=== PATIENT | male | born 1950 | race Caucasian/White ===

== ENCOUNTER → 2018-12-24 06:55 | Outpatient (CLI) | payer MEDICARE, SELFPAY ==
--- NOTE | 2018-12-24 | CA_ITS ---
APPROVED REPORT Exam: Pharmacologic Technologist: Dara Lauren Ht: 6 ft 0 in Wt: 240 lbs BSA: 2.30 m2 HR: 54 bpm BP: 149/78 mmHg Indications: Shortness of Breath, Dizziness Medical History Medications: Levothyroxine,,,,, Metoprolol,,,,, Atorvastatin,,,,, Albuterol,,,,, DulOXETINE,,,,, Prednisone,,,,, Vitamin D,,,,, ElIQUIS,,,,, AZITHROMYCIN,,,,, Stress Test Details Test: LEXISCAN HR Resting HR: 62 bpm Max Heart Rate (APMHR): 150 bpm Max HR Achieved: 85 bpm Target HR (85% APMHR): 127 bpm % of APMHR: 56 Recovery HR: 58 bpm BP Resting BP: 149.0/78.0 mmHg Max BP: 173.0/76.0 mmHg Recovery BP: 173.0/76.0 mmHg ECG Clinical Reason for Termination: Completed Protocol Exercise duration: 04:00 min Highest Stage Achieved: Stress ECG Conclusion Resting ECG: Sinus bradycardia, Q wave inferiorly Symptoms: None Arrhythmias/Ectopy: Occasional PVC ST-T Changes: less than 1.[address] segment depression Conclusion: Non-Diagnostic. See nuclear report for further information. Electronically signed by : Ye Hill, 12/26/2018 15:06:57
--- NOTE | 2018-12-24 06:57 | CA_ITS ---
[facility] RADIOLOGICAL CONSULTATION Patient Name : DOYLE LEZAMA X-RAY # : [id number] Physician: RAYMOND ONEILL AGE: 68Y : 1950 00:00:00 ( M ) Exam : CA ECHO DOPPLER COMPLETE ACC # : [id number] Study Date : 12/24/2018 10:18:14 Patient Class : O FINAL REPORT CLINICAL DATA: FINDINGS: TRANSCRIBED REPORT EXAM: Comprehensive 2D, Doppler, and color-flow Echocardiogram Library Director: Roopa Grover CRT Ht: 6 ft 0 in Wt: 234lbs BSA: 2.28 BP: 135/90 mmHg Indications: sob, dizziness, htn, dm, smoker, edema, hyperlipidemia 2D Dimensions LVOT 2.00 cm (M/F) 1.5-2.5 M-Mode Dimensions RVDd 1.60 cm (0.9-2.6) LA Diam 3.60 cm (1.9-4.0) LVDd 5.40 cm (3.5-5.7) Ao Diam 4.10 cm (2.0-3.7) LVDs 3.40 cm (3.5-5.7) AV Cusp 2.50 cm (1.5-2.6) IVSd 1.90 cm (0.6-1.1) PWd 0.80 cm (0.6-1.1) EF (Teich) 66.40% FS 37.00% EDV (Teich) 141.00 mL ESV (Teich) 47.40 mL LV Diastology E/A Ratio 0.50 LAT E' 3.90 (<10 cm/sec) E/LAT E' Ratio 12.40 (>14) Aortic Valve AoV Peak Marciano. 114.00 (50-130 cm/s) AO Peak GR. 5.00 mmHg Mitral Valve MV E Max Marciano. 48.40 (40-130 cm/s) MV A Velocity 100.00 (40-130 cm/s) E/A Ratio 0.50 Pulmonary Valve IN End VMAX 103.00 cm/s PA Accel Time 144.00 (>120 msec) Tricuspid Valve TR P. Velocity 238.00 cm/s RAP Estimate 10.00 mmHg RVSP 33.00 mmHg Electronically signed by : IMPRESSION: Dictated by at Transcribed by at
--- NOTE | 2018-12-24 06:57 | CA_ITS ---
APPROVED REPORT Hazardous Waste Material Technician: CT Laterality: Bilateral Study Quality: Fair Indications: cardiac workup, dizziness, cva, dm Risk Factors Smoking Doppler Spectral Velocity Analysis ECA (R) 81.50/ cm/s ECA (L) 75.00/ cm/s dICA (R) 67.40/17.60 cm/s dICA (L) 80.10/22.00 cm/s Willy (R) 49.80/16.40 cm/s Willy (L) 60.30/18.80 cm/s pICA (R) 40.50/16.50 cm/s pICA (L) 35.40/10.40 cm/s dCCA (R) 46.80/9.08 cm/s dCCA (L) 37.70/9.11 cm/s pCCA (R) 60.50/14.10 cm/s pCCA (L) 49.00/12.60 cm/s Vert (R) 38.40/ cm/s Vert (L) 33.60/ cm/s ICA/CCA 1.44 ICA/CCA 2.12 Findings Duplex evaluation demonstrates stenosis of the right proximal internal carotid artery <20% with PSV <140 cm/sec, EDV <100 cm/sec, and IC/CC Ratio <4.0. Duplex evaluation demonstrates stenosis of the left proximal internal carotid artery in the range of 20-49% with PSV <140 cm/sec, EDV <100 cm/sec, and IC/CC Ratio <4.0, lower end of scale. Duplex evaluation demonstrates antegrade flow of the bilateral Vertebral Arteries. Conclusion Duplex evaluation demonstrates stenosis of the right proximal internal carotid artery <20%. Duplex evaluation demonstrates stenosis of the left proximal internal carotid artery in the range of 20-49% , lower end of scale. Duplex evaluation demonstrates antegrade flow of the bilateral Vertebral Arteries Electronically signed by : Jordi Fairchild MD 12/28/2018 07:44:56
--- NOTE | 2018-12-24 07:01 | NM_ITS ---
APPROVED REPORT Exam: Nuclear Stress Test Indication: Chest pain, SOB, DM, High Cholesterol, Tobacco use, Family history, CAD, Hx of [place] Patient Location: Outpatient Stress Tech: Daar Leonidas [place] Tech:Nalini Byers, ARRT, RT (R)(N) Ht: 6 ft 0 in Wt: 240 lbs HR: 54 bpm BP: 149/78 mmHg BSA: 2.30 m2 History: Chest pain, SOB, DM, High Cholesterol, Tobacco use, Family history, CAD, Hx of [place] Procedure: Patient received a 0.4 mg of intravenous Lexiscan, resting heart rate 54 bpm, resting blood pressure 149/78 mmHg, with Lexiscan maximum heart rate achived was 71 bpm which is % of the maximum predicted heart rate and blood pressure was 172/75 mmHg. With Lexiscan, patient denied any complaint of chest pain. Cardiac Stress and Resting SPECT Images: Cardiac Stress and Resting SPECT images were obtained using technetium 99m Myoview 31.6 mCi stress and 9.96 mCi at rest. Slightly low EF of 50% There is a large fixed defect in the infero-lat wall consistent with an infarct There is thinnning of the apex on stress images which slightly improves on rest suggesting mild ischemic change Conclusion: Slightly low EF of 50% There is a large fixed defect in the infero-lat wall consistent with an infarct There is thinnning of the apex on stress images which slightly improves on rest suggesting mild ischemic change Electronically signed by : Jordi Fairchild MD 12/26/2018 17:03:27
--- NOTE | 2018-12-24 07:18 | HMH.ITSHM ---
Current Home Medications as stated by this patient Anthony Hawk JR or patient care representative. []VITAMIN D ATORVASTATIN ELIQUIS DULOXETINE LEVOTHYROXINE METOPROLOL AZITHROMYCIN PREDNISONE ALBUTEROL
== END ==
PROVIDERS: PCP Nurse Practitioner Family; Visit Provider Internal Medicine Cardiovascular Disease
DX: R06.02 Shortness of breath (principal); R42 Dizziness and giddiness
CPT/HCPCS: 78452; 93017; 93306; 93880; A9502; J2785

== ENCOUNTER → 2019-01-07 17:12 | Outpatient (CLI) | payer MEDICARE, SELFPAY ==
[2019-01-07 18:29] LABS: Alanine Aminotransferase 24 U/L (12-78); Albumin Level 3.1 gm/dL (3.4-5.0); Alkaline Phosphatase 104 U/L (46-116); Anion Gap 15.7 mEq/L (5-15); Aspartate Amino Transferase 12 U/L (15-37); Bilirubin,Total 0.8 mg/dL (0.2-1.0); Blood Urea Nitrogen 15 mg/dL (7-18); Carbon Dioxide 27 mmol/L (21.0-32.0); Chloride 98 mmol/L (98-107); Creatinine,Serum 1.33 mg/dL (0.70-1.30); Estimated Glomerular Filt Rate 53 ml/min (>60); GFR (African American) 64 ML/MIN (>60); Globulin 3.2 gm/dl (1.3-3.2); Glucose 281 mg/dL (74-106); Potassium 3.7 mmoL/L (3.5-5.1); Sodium 137 mmol/L (136-145); Total Protein,Serum 6.3 gm/dL (6.4-8.2)
== END ==
PROVIDERS: Visit Provider Nurse Practitioner Family
DX: R60.0 Localized edema (principal)
CPT/HCPCS: 80053

== ENCOUNTER → 2019-01-10 13:43 | Outpatient (CLI) | payer MEDICARE, SELFPAY ==
[2019-01-11 10:15] LABS: Creatinine, Urine 372.2 mg/dL (Not Estab.)
== END ==
PROVIDERS: Visit Provider Nurse Practitioner Family
DX: E11.9 Type 2 diabetes mellitus without complications (principal); Z79.4 Long term (current) use of insulin
CPT/HCPCS: 82043; 82570

== ENCOUNTER → 2019-01-11 16:03 | Outpatient (CLI) | payer MEDICARE, SELFPAY ==
[2019-01-11 16:52] LABS: Basophils # 0.1 K/mm3 (0-0.2); Basophils % 0.5 % (0.1-2.0); Eosinophils # 0.1 K/mm3 (0.0-0.4); Eosinophils % 1.1 % (0.1-12.0); Hematocrit 46.6 % (42.0-52.0); Hemoglobin 15.7 g/dL (14.1-18.0); Lymphocytes % 38.5 % (10-50); Mean Corpuscular HGB Conc 33.8 g/dL (31.8-35.4); Mean Corpuscular Hemoglobin 30.3 pg (27.0-31.2); Mean Corpuscular Volume 89.6 fl (80-94); Mean Platelet Volume 11.6 fl (7.4-10.4); Monocytes # 0.4 K/mm3 (0.1-1.0); Monocytes % 3.7 % (1.7-9.3); Neutrophils # 5.9 K/mm3 (1.8-7.8); Neutrophils % 56.2 % (37.0-80.0); Platelet Count 134 K/mm3 (142-424); Red Cell Distribution Width 14.4 % (11.5-17.5); White Blood Count 10.5 K/mm3 (4.8-10.8)
[2019-01-11 18:49] LABS: Cholesterol 72 mg/dL (140-200)
[2019-01-11 21:03] LABS: Alanine Aminotransferase 21 U/L (12-78); Albumin Level 3.4 gm/dL (3.4-5.0); Albumin/Globulin Ratio 1.1 (1.1-1.8); Alkaline Phosphatase 97 U/L (46-116); Anion Gap 18.8 mEq/L (5-15); Aspartate Amino Transferase 19 U/L (15-37); Bilirubin,Total 0.7 mg/dL (0.2-1.0); Blood Urea Nitrogen 24 mg/dL (7-18); Calcium 9.2 mg/dL (8.5-10.1); Carbon Dioxide 26 mmol/L (21.0-32.0); Chloride 101 mmol/L (98-107); Creatinine,Serum 1.62 mg/dL (0.70-1.30); Estimated Glomerular Filt Rate 42 ml/min (>60); GFR (African American) 51 ML/MIN (>60); Globulin 3.2 gm/dl (1.3-3.2); Potassium 3.8 mmoL/L (3.5-5.1); Sodium 142 mmol/L (136-145); Thyroid Stimulating Hormone 61.31 uIU/ml (0.358-3.740); Total Protein,Serum 6.6 gm/dL (6.4-8.2); Triglycerides 118 mg/dL (30-200); VLDL Cholesterol 24 mg/dL (0-40)
[2019-01-11 21:05] LABS: Glucose 150 mg/dL (74-106)
[2019-01-12 13:46] LABS: Chol/HDL Ratio 1.5 (1-3.5); HDL Cholesterol 48 mg/dL (27-67); LDL Cholesterol 0 mg/dL (0-130); T4 (Thyroxine) 5.3 ug/dl (4.7-13.3)
[2019-01-14 14:34] LABS: Vitamin D 25 Hydroxy 33.2 ng/mL (30.0-100.0)
== END ==
PROVIDERS: Nurse Practitioner Family; Visit Provider Nurse Practitioner Family
DX: E11.9 Type 2 diabetes mellitus without complications (principal); F17.200 Nicotine dependence, unspecified, uncomplicated; Z79.4 Long term (current) use of insulin
CPT/HCPCS: 36415; 80053; 80061; 82652; 83036; 84436; 84443; 85025

== ENCOUNTER → 2019-02-21 16:36 | Outpatient (CLI) | payer MEDICARE, MEDICAID, SELFPAY ==
--- NOTE | 2019-02-21 16:43 | XR_ITS ---
PROCEDURE: XR FOOT WT BEARING RT 3V CLINICAL INDICATION: pain Posttraumatic pain COMPARISON: No exams were available for comparison FINDINGS: There is flexion deformity of the 1st through 5th toes with osteoarthritic change of the 1st metatarsophalangeal joint. Mild osteoarthritic change noted at the tarsometatarsal junctions. Bony hypertrophy is noted at the medial cuneiform with mild osteoarthritis of the tarsals. There appears to be an old fracture of the distal fibula. Calcification is present at the plantar fascia posteriorly. This would suggest chronic plantar fasciitis. No acute fracture or dislocation. IMPRESSION: Degenerative changes, no acute fracture Dictated by: Jordi Fairchild MD 02/22/2019 05:06 Electronically signed by Jordi Fairchild MD in [place] 02/22/2019 05:06
--- NOTE | 2019-02-21 16:43 | XR_ITS ---
PROCEDURE: XR FOOT WT BEARING LT 3V CLINICAL INDICATION: pain Left foot pain following injury COMPARISON: No exams were available for comparison FINDINGS: There are mild osteoarthritic changes of the 1st metatarsophalangeal junction and 1st interphalangeal joint with flexion deformity of the toes. Moderate calcification is present at the plantar fascia suggesting chronic fasciitis. Calcification also noted involving the distal aspect of the Achilles tendon. Degenerative changes are present in the tarsal bones. No obvious acute fracture or dislocation. Other findings:None. IMPRESSION: Degenerative changes, no acute finding Dictated by: Jordi Fairchild MD 02/22/2019 05:08 Electronically signed by Jordi Fairchild MD in [place] 02/22/2019 05:08
== END ==
PROVIDERS: PCP Nurse Practitioner Family; Visit Provider Podiatrist
DX: E11.8 Type 2 diabetes mellitus with unspecified complications (principal); Z79.4 Long term (current) use of insulin; M79.672 Pain in left foot; M79.671 Pain in right foot
CPT/HCPCS: 73630

== ENCOUNTER → 2019-04-11 16:52 | Outpatient (POV) | payer SELFPAY | PROVIDERS: Visit Provider Internal Medicine Nephrology | DX: Z00.00 Encounter for general adult medical examination without abnormal findings (principal) ==

== ENCOUNTER → 2019-09-10 13:31 | Outpatient (CLI) | payer MEDICARE, SELFPAY ==
[2019-09-10 13:41] LABS: Basophils # 0.1 K/mm3 (0-0.2); Basophils % 0.7 % (0.1-2.0); Eosinophils # 0.2 K/mm3 (0.0-0.4); Eosinophils % 1.7 % (0.1-12.0); Hematocrit 45.4 % (42.0-52.0); Hemoglobin 15.4 g/dL (14.1-18.0); Lymphocytes # 2.9 K/mm3 (0.7-4.5); Lymphocytes % 28.6 % (10-50); Mean Corpuscular HGB Conc 33.9 g/dL (31.8-35.4); Mean Corpuscular Hemoglobin 29.6 pg (27.0-31.2); Mean Corpuscular Volume 87.3 fl (80-94); Mean Platelet Volume 10.4 fl (7.4-10.4); Monocytes # 0.5 K/mm3 (0.1-1.0); Monocytes % 4.5 % (1.7-9.3); Neutrophils # 6.6 K/mm3 (1.8-7.8); Neutrophils % 64.4 % (37.0-80.0); Platelet Count 168 K/mm3 (142-424); Red Cell Distribution Width 14.2 % (11.5-17.5); White Blood Count 10.2 K/mm3 (4.8-10.8)
[2019-09-10 13:42] LABS: Chloride 100 mmol/L (98-107); Potassium 3.6 mmoL/L (3.5-5.1); Sodium 136 mmol/L (136-145)
[2019-09-10 13:44] LABS: Alanine Aminotransferase 8 U/L (12-78); Aspartate Amino Transferase 16 U/L (17-59); Blood Urea Nitrogen 24 mg/dl (9-20); Estimated Glomerular Filt Rate 60 ml/min (>60); GFR (African American) 72 ML/MIN (>60)
[2019-09-10 13:45] LABS: Albumin Level 4.1 g/dl (3.5-5.0); Albumin/Globulin Ratio 1.3 (1.1-1.8); Alkaline Phosphatase 96 U/L (38-126); Anion Gap 9.6 mEq/L (5-15); Bilirubin,Total 0.8 mg/dl (0.2-1.3); Calcium 9.5 mg/dl (8.4-10.2); Carbon Dioxide 30 mmol/L (22.0-30.0); Chol/HDL Ratio 3.1 (1-3.5); Cholesterol 122 mg/dl (140-200); Globulin 3.2 g/dL (1.3-3.2); Glucose 137 mg/dl (74-100); HDL Cholesterol 40 mg/dl (40-60); Total Protein,Serum 7.3 g/dl (6.3-8.2); Triglycerides 81 mg/dl (30-150); VLDL Cholesterol 16 mg/dL (0-40)
[2019-09-10 13:58] LABS: Direct LDL Cholesterol 65.91 mg/dL (100-129)
[2019-09-10 14:02] LABS: T4 (Thyroxine) 9.2 ug/dl (5.53-11.0)
[2019-09-10 14:16] LABS: Thyroid Stimulating Hormone 4.78 uIU/mL (0.465-4.68)
[2019-09-10 15:30] LABS: Hemoglobin A1C 6.5 % (4.0-6.0)
[2019-09-10 19:15] LABS: Creatinine,Urine Random 142 mg/dL (Not Estab.)
[2019-09-10 20:38] LABS: Microalbumin/Creatinine Ratio 1732.7
== END ==
PROVIDERS: Visit Provider Nurse Practitioner Family
DX: E11.8 Type 2 diabetes mellitus with unspecified complications (principal); E03.9 Hypothyroidism, unspecified; Z79.4 Long term (current) use of insulin
CPT/HCPCS: 80053; 80061; 82043; 82570; 83036; 84436; 84443; 85025

== ENCOUNTER → 2020-03-31 19:27 | Outpatient (CLI) | payer MEDICARE, SELFPAY ==
[2020-03-31 20:00] LABS: Alanine Aminotransferase 18 U/L (12-78); Albumin Level 4.6 g/dl (3.5-5.0); Albumin/Globulin Ratio 1.5 (1.1-1.8); Alkaline Phosphatase 153 U/L (38-126); Aspartate Amino Transferase 20 U/L (17-59); Basophils # 0.1 K/mm3 (0-0.2); Basophils % 0.7 % (0.1-2.0); Bilirubin,Total 0.6 mg/dl (0.2-1.3); Blood Urea Nitrogen 17 mg/dl (9-20); Carbon Dioxide 33 mmol/L (22.0-30.0); Chloride 94 mmol/L (98-107); Chol/HDL Ratio 2.7 (1-3.5); Cholesterol 148 mg/dl (140-200); Eosinophils # 0.1 K/mm3 (0.0-0.4); Eosinophils % 0.9 % (0.1-12.0); Estimated Glomerular Filt Rate 66 ml/min (>60); GFR (African American) 80 ML/MIN (>60); Glucose 352 mg/dl (74-100); HDL Cholesterol 54 mg/dl (40-60); Hematocrit 46.7 % (42.0-52.0); Hemoglobin 14.6 g/dL (14.1-18.0); Lymphocytes # 2.6 K/mm3 (0.7-4.5); Lymphocytes % 27.1 % (10-50); Mean Corpuscular HGB Conc 31.2 g/dL (31.8-35.4); Mean Corpuscular Hemoglobin 28.3 pg (27.0-31.2); Mean Corpuscular Volume 90.6 fl (80-94); Mean Platelet Volume 13.1 fl (7.4-10.4); Monocytes # 0.6 K/mm3 (0.1-1.0); Monocytes % 5.8 % (1.7-9.3); Neutrophils # 6.4 K/mm3 (1.8-7.8); Neutrophils % 65.4 % (37.0-80.0); Platelet Count 135 K/mm3 (142-424); Red Blood Count 5.16 M/mm3 (4.60-6.20); Red Cell Distribution Width 14.5 % (11.5-17.5); Sodium 135 mmol/L (136-145); Total Protein,Serum 7.6 g/dl (6.3-8.2); Triglycerides 116 mg/dl (30-150); VLDL Cholesterol 23 mg/dL (0-40); White Blood Count 9.7 K/mm3 (4.8-10.8)
[2020-03-31 20:12] LABS: Direct LDL Cholesterol 67.64 mg/dL (100-129)
[2020-03-31 20:19] LABS: 25-OH Vitamin D, Total 22.8 ng/mL (30-100); Hemoglobin A1C 7.7 % (4.0-6.0)
[2020-03-31 20:20] LABS: Free T4 (Free Thyroxine) 1.44 ng/dl (0.78-2.19)
[2020-03-31 20:45] LABS: Erythrocyte Sedimentation Rate 8 mm/hr (0-20)
== END ==
PROVIDERS: Visit Provider Emergency Medicine
DX: E11.9 Type 2 diabetes mellitus without complications (principal); Z79.4 Long term (current) use of insulin; E55.9 Vitamin D deficiency, unspecified
CPT/HCPCS: 80053; 80061; 82306; 83036; 84439; 84443; 85025; 85651

== ENCOUNTER 2020-04-10 19:25 | Inpatient (IN) | payer MEDICARE, MEDICAID, SELFPAY ==
--- NOTE | 2020-04-10 19:17 | ECG_ITS ---
APPROVED REPORT Exam: Resting ECG HR:60 bpm ECG Measurements Heart Rate 60 AXES SC 188 P 49 QRSd 82 QRS 60 QT 462 T 12 QTc 462 Conclusion Normal sinus rhythm Possible Inferior infarct, age undetermined T wave abnormality, consider lateral ischemia Abnormal ECG Electronically signed by : Jonathon Perales, 04/11/2020 08:49:51
--- NOTE | 2020-04-10 19:32 | XR_ITS ---
PROCEDURE: XR HIP LT 2-3V W/PELVIS CLINICAL INDICATION: pain Injury with pain COMPARISON: CR XR PELVIS 1-2V from 04/10/[address] HIP LT WO CON from 04/10/2020 FINDINGS: There is a nondisplaced fracture involving the intertrochanteric portion of the left hip. The fracture extends from the base of the lesser trochanter through the intertrochanteric region and appears to exit superiorly at the base of the femoral neck. Consider CT for more thorough evaluation. There has been a right hip hemiarthroplasty placed which is in good alignment. DISH is present in the lower lumbar spine. IMPRESSION: 1. Nondisplaced left intertrochanteric fracture with extension into the femoral neck. 2. Status post right hip hemiarthroplasty Dictated by: Jordi Fairchild MD 04/11/2020 07:55 Jordi Fairchild MD in [place] 04/11/2020 07:55
--- NOTE | 2020-04-10 19:32 | XR_ITS ---
PROCEDURE: XR CHEST PORTABLE CLINICAL HISTORY: cough COMPARISON: CR CXR CHEST(2 VIEWS-NOT PORTABLE) from 09/02/2013 CR CXR1 CHEST-PORTABLE from 03/07/2014 CR CXR2 CHEST-AP VIEW ONLY from 01/26/2015 FINDINGS: The cardiomediastinal silhouette and pulmonary vascularity are within normal limits. No lobar consolidation or collapse evident. There is a nodular opacity in the left perihilar region which may be due to vessel on end and could be confirmed follow-up. Lucency noted in the left upper lobe laterally probably related to skin fold artifact as lung markings are present distal to this region. Upright PA and lateral chest may confirm Osteoarthritic changes of the shoulders. Prior lower cervical disc fusion IMPRESSION: No acute finding. Please see above for detail Dictated by: Jordi Fairchild MD 04/11/2020 08:07 Jordi Fairchild MD in [place] 04/11/2020 08:07
[2020-04-10 19:34] VITALS: BP 171/84; PULSE 56; RESP 16; TEMP 37.1; O2SAT 98; BMI 24.4
[2020-04-10 19:38] LABS: Basophils # 0.1 K/mm3 (0-0.2); Basophils % 0.7 % (0.1-2.0); Eosinophils # 0.1 K/mm3 (0.0-0.4); Eosinophils % 1.2 % (0.1-12.0); Hematocrit 45.1 % (42.0-52.0); Hemoglobin 14.6 g/dL (14.1-18.0); Lymphocytes % 31.8 % (10-50); Mean Corpuscular HGB Conc 32.4 g/dL (31.8-35.4); Mean Corpuscular Hemoglobin 28.7 pg (27.0-31.2); Mean Corpuscular Volume 88.6 fl (80-94); Mean Platelet Volume 11.8 fl (7.4-10.4); Monocytes # 0.4 K/mm3 (0.1-1.0); Monocytes % 4.3 % (1.7-9.3); Neutrophils # 5.9 K/mm3 (1.8-7.8); Platelet Count 129 K/mm3 (142-424); Red Blood Count 5.09 M/mm3 (4.60-6.20); Red Cell Distribution Width 15.1 % (11.5-17.5); White Blood Count 9.6 K/mm3 (4.8-10.8)
--- NOTE | 2020-04-10 19:48 | XR_ITS ---
PROCEDURE: XR ELBOW RT MIN 3V CLINICAL INDICATION: fall Posttraumatic pain COMPARISON: No exams were available for comparison FINDINGS: No fracture or dislocation. No lytic or blastic change. There is normal mineralization. Artifact is present from the overlying intravenous catheter. There are osteoarthritic changes with spurring noted there is an extra calcific density overlying the olecranon fossa on the AP view consistent with a loose body measuring 6 mm. An additional extra ossicle overlies the medial aspect of the olecranon process on the AP view measuring 7 mm and could be due to an additional loose body or an old fracture. Other findings:None. IMPRESSION: 1. No acute fracture. 2. Osteoarthritis with loose bodies Dictated by: Jordi Fairchild MD 04/11/2020 07:47 Jordi Fairchild MD in [place] 04/11/2020 07:47
--- NOTE | 2020-04-10 19:48 | CT_ITS ---
PROCEDURE: CT CERVICAL SPINE WO CON CLINICAL INDICATION: fall Neck injury with pain, contusion/abrasion or hematoma, cervical sprain/strain the COMPARISON: No exams were available for comparison TECHNIQUE: Axial images obtained with sagittal and coronal reformats. All CT scans at the facility use one or more dose reduction, viz: automated exposure control, ma/kV adjustment per patient size (including targeted exams where dose is matched to indication, i.e. head), or iterative reconstruction technique. Axial spiral CT scanning performed of the cervical spine beginning at the base of the skull and continuing to the upper T-spine. 3-D multiplanar reconstruction with 3-D manipulation of volumetric data set in image rendering was completed by the radiologist and/or technologist with the supervision of the radiologist on independent workstation. FINDINGS: Prior anterior cervical discectomy with fusion from C3-C5. No acute fracture or dislocation. C2-C3: Degenerative disc disease. Small central disc protrusion or disc osteophyte complex C3-C4: Degenerate disc disease with foraminal narrowing. C4-C5: Degenerative disc disease C5-C6: Degenerative disc disease with endplate hypertrophic change eccentric to the right with bilateral foraminal narrowing left greater than right C6-C7: Degenerate disc disease with endplate hypertrophic change and bilateral foraminal narrowing. C7-T1: Degenerate disc disease with bilateral foraminal narrowing. Lung apices are clear. Mucous is present within the distal trachea layering posteriorly. There is diffuse vascular calcification. IMPRESSION: 1. No acute fracture. 2. Multilevel cervical spondylosis. Please see above for detailed description at each level. Dictated by: Jordi Fairchild MD 04/11/2020 09:44 Jordi Fairchild MD in [place] 04/11/2020 09:44
--- NOTE | 2020-04-10 19:48 | CT_ITS ---
PROCEDURE: CT HEAD/BRAIN WO CON CLINICAL INDICATION: fall Head injury with headache/pain, contusion, abrasion or hematoma COMPARISON: CT HDWO CT HEAD W/O CONTRAST from 01/02/2014 TECHNIQUE: Axial images obtained. All CT scans at the facility use one or more dose reduction, viz: automated exposure control, ma/kV adjustment per patient size (including targeted exams where dose is matched to indication, i.e. head), or iterative reconstruction technique. FINDINGS: No midline shift, mass effect, intracranial hemorrhage, hydrocephalus, or extra-axial fluid collection is evident. There is generalized atrophy with hypoattenuation of the periventricular white matter consistent with microangiopathic changes.. The calvarium has an unremarkable appearance. There is soft tissue swelling in the right frontal parietal and occipital region consistent with contusion no sinus air-fluid level. IMPRESSION: 1. No acute intracranial findings. 2. Mild right frontal parietal occipital scalp contusion Dictated by: Jordi Fairchild MD 04/11/2020 09:25 Jordi Fairchild MD in [place] 04/11/2020 09:25
--- NOTE | 2020-04-10 19:48 | XR_ITS ---
PROCEDURE: XR KNEE RT 3V CLINICAL INDICATION: fall Posttraumatic pain COMPARISON: CR KNEE3L KNEE-3 VIEWS-LT from 04/22/2013 CR [id number] KNEE-4 OR 5 VIEWS-LT from 07/10/2013 CR [id number] KNEE-LIMITED 2 VIEWS-RT from 04/22/2015 CR XR KNEE LT 3V from 04/10/2020 FINDINGS: There are moderate osteoarthritic changes. No acute fracture or dislocation is evident. There is a loose body in the popliteal fossa. IMPRESSION: No acute fracture. Dictated by: Jordi Fairchild MD 04/11/2020 07:50 Jordi Fairchild MD in [place] 04/11/2020 07:50
--- NOTE | 2020-04-10 19:48 | XR_ITS ---
PROCEDURE: XR KNEE LT 3V CLINICAL INDICATION: fall Posttraumatic pain COMPARISON: CR KNEE3L KNEE-3 VIEWS-LT from 04/22/2013 CR [id number] KNEE-4 OR 5 VIEWS-LT from 07/10/2013 CR [id number] KNEE-LIMITED 2 VIEWS-RT from 04/22/2015 FINDINGS: No fracture or dislocation. No lytic or blastic change. There is normal mineralization. Severe osteoarthritic changes are present with prominent bony spurring. Prominent enthesophyte/osteophyte noted in the suprapatellar region. Diffuse vascular calcification. . IMPRESSION: Osteoarthritis, no acute fracture. Dictated by: Jordi Fairchild MD 04/11/2020 07:51 Jordi Fairchild MD in [place] 04/11/2020 07:51
--- NOTE | 2020-04-10 19:48 | XR_ITS ---
PROCEDURE: XR SHOULDER LT MIN 2V CLINICAL INDICATION: fall Posttraumatic pain COMPARISON: No exams were available for comparison FINDINGS: No fracture or dislocation. No lytic or blastic change. There is normal mineralization. Osteoarthritic changes are present at the acromioclavicular and glenohumeral joint. Subchondral cystic changes are present in the humeral head. There is a high-riding humeral head with severe subacromial stenosis consistent with rotator cuff tear. Other findings:None. IMPRESSION: No acute fracture. Osteoarthritis with high-riding humeral head and severe subacromial stenosis suggesting rotator cuff tear Dictated by: Jordi Fairchild MD 04/11/2020 08:03 Jordi Fairchild MD in [place] 04/11/2020 08:03
[2020-04-10 19:53] LABS: Activated Partial Thrombo Time 26.8 seconds (23.6-34.0); INR 1.03 (0.9-1.1); Prothrombin Time 11.4 seconds (9.4-11.8)
[2020-04-10 19:56] VITALS: BP 179/82; PULSE 64; O2SAT 90
--- NOTE | 2020-04-10 19:58 | HMH.EDFALL ---
ED Disposition Clinical Impression: History of CVA (cerebrovascular accident), Neuropathy, Thrombocytopenia Hip fracture, intertrochanteric Qualifiers: Encounter type: initial encounter Fracture type: closed Fracture alignment: displaced Laterality: left Qualified Code(s): S72.142A - Displaced intertrochanteric fracture of left femur, initial encounter for closed fracture Bedbug bite Qualifiers: Encounter type: initial encounter Qualified Code(s): W57.XXXA - Bitten or stung by nonvenomous insect and other nonvenomous arthropods, initial encounter Hypothyroidism Qualifiers: Hypothyroidism type: acquired Qualified Code(s): E03.9 - Hypothyroidism, unspecified HTN (hypertension) Qualifiers: Hypertension type: essential hypertension Qualified Code(s): I10 - Essential (primary) hypertension Type 2 diabetes mellitus, with long-term current use of insulin Qualifiers: Diabetes mellitus complication status: with other specified complication Qualified Code(s): E11.69 - Type 2 diabetes mellitus with other specified complication; Z79.4 - residential (current) use of insulin Osteoarthritis Qualifiers: Osteoarthritis location: multiple joints Osteoarthritis type: unspecified Qualified Code(s): M15.9 - Polyosteoarthritis, unspecified Disposition: Admitted As Inpatient Condition on Discharge: Fair Referrals: Maurice Ndiaye MD [Primary Care Provider] - - Critical Care Critical Care Time: No Attestation: On 04/10/20, the high probability of a clinically significant, sudden or life threatening deterioration of the following system(s) required my full and direct attention, intervention and personal management. The time I documented below is in addition to time spent performing reported procedures but includes the following listed in this critical care notation. Medical Decision Making - Medical Records Medical records reviewed: Yes: I reviewed the patient's medical records. - Melchor Inquiry Pt receiving controlled substance: No Vital Signs: 04/10/20 19:34 Temperature 98.7 F Temperature Source Oral Pulse Rate [Right] 56 L Respiratory Rate 16 Blood Pressure [Right Arm] 171/84 H Blood Pressure Mean [Right Arm] 113 Blood Pressure Source [Right Arm] Automatic Cuff Blood Pressure Position [Right Arm] Supine 02 Sat by Pulse Oximetry 98 Oxygen Delivery Method Room Air - Lab Data Lab results reviewed: Yes: I reviewed the patient's lab results. Lab Results 04/10/20 19:25: WBC 9.6, RBC 5.09, Hgb 14.6, Hct 45.1, MCV 88.6, MCH 28.7, MCHC 32.4, RDW 15.1, Plt Count 129 L, MPV 11.8 H, Neut % (Auto) 62.0, Lymph % (Auto) 31.8, Reeves % (Auto) 4.3, Eos % (Auto) 1.2, Baso % (Auto) 0.7, Neut # (Auto) 5.9, Lymph # (Auto) 3.0, Reeves # (Auto) 0.4, Eos # (Auto) 0.1, Baso # (Auto) 0.1 04/10/20 19:25: PT 11.4, INR 1.03, APTT 26.8 04/10/20 19:25: Sodium 140, Potassium 3.3 L, Chloride 102, Carbon Dioxide 32 H, Anion Gap 9.3, BUN 18, Creatinine 1.00, Estimated Creat Clear 78, Estimated GFR 74, Est GFR ( Amer) 89, Glucose 135 H, Calcium 9.3, Total Bilirubin 0.4, AST 26, ALT 16, Alkaline Phosphatase 112, Total Protein 7.2, Albumin 4.1, Globulin 3.1, Albumin/Globulin Ratio 1.3 04/10/20 19:25: ESR 17 04/10/20 19:25: C-Reactive Protein 5.0 H, Procalcitonin 0.047 Result diagrams: 04/10/20 19:25 04/10/20 19:25 Orders (Tests/Meds): ED MEDICATIONS Generic Name Dose Route Start Last Admin Trade Name Freq PRN Reason Stop Dose Admin Sodium Chloride 1,000 mls @ 999 mls/hr 04/10/20 20:00 04/10/20 20:06 Sod Chlor 0.9% 1000ml Bag IV 04/10/20 21:00 999 mls/hr .Q1H1M TAMIA Administration Discontinued Medications Generic Name Dose Route Start Last Admin Trade Name Freq PRN Reason Stop Dose Admin Ketorolac Tromethamine 30 mg 04/10/20 19:47 04/10/20 20:05 Ketorolac 30mg/Ml Vial IV 04/10/20 19:48 30 mg ONCE ONE Administration Morphine Sulfate 4 mg 04/10/20 19:32 04/10/20 20:05 Morphine 4mg/Ml Syringe IV 04/10/20
[2020-04-10 20:13] LABS: Alanine Aminotransferase 16 U/L (12-78); Albumin Level 4.1 g/dl (3.5-5.0); Albumin/Globulin Ratio 1.3 (1.1-1.8); Alkaline Phosphatase 112 U/L (38-126); Anion Gap 9.3 mEq/L (5-15); Aspartate Amino Transferase 26 U/L (17-59); Bilirubin,Total 0.4 mg/dl (0.2-1.3); Blood Urea Nitrogen 18 mg/dl (9-20); Calcium 9.3 mg/dl (8.4-10.2); Carbon Dioxide 32 mmol/L (22.0-30.0); Chloride 102 mmol/L (98-107); Creatinine Clearance Estimated 78 mL/min (50-200); Estimated Glomerular Filt Rate 74 ml/min (>60); GFR (African American) 89 ML/MIN (>60); Globulin 3.1 g/dL (1.3-3.2); Glucose 135 mg/dl (74-100); Potassium 3.3 mmoL/L (3.5-5.1); Sodium 140 mmol/L (136-145); Total Protein,Serum 7.2 g/dl (6.3-8.2)
[2020-04-10 20:25] LABS: Erythrocyte Sedimentation Rate 17 mm/hr (0-20)
[2020-04-10 20:31] LABS: Procalcitonin 0.047 ng/mL (0.0-2.0)
--- NOTE | 2020-04-10 20:35 | CT_ITS ---
PROCEDURE: CT HIP LT WO CON CLINICAL HISTORY: fall Posttraumatic pain, evaluate hip fracture COMPARISON: CT ABDPELW/O CT ABD PELVIS W/O CONTRAST from 11/27/2013 CR PELAP PELVIS AP ONLY from 01/26/2015 CR [id number] HIP-2 VIEWS-RT from 01/26/2015 CR XR HIP LT 2-3V W/PELVIS from 04/10/2020 TECHNIQUE: Axial images obtained with sagittal and coronal reformats. All CT scans at the facility use one or more dose reduction, viz: automated exposure control, ma/kV adjustment per patient size (including targeted exams where dose is matched to indication, i.e. head), or iterative reconstruction technique. FINDINGS: There is a comminuted displaced/impacted intertrochanteric fracture the left hip with the fracture extending from the lesser trochanter region superiorly to the basicervical portion of the femoral neck. There is some foreshortening of the fracture fragment with some mild impaction. The lesser trochanter fragment is displaced medially by 12 mm with the greater trochanter fragment displaced laterally by 8 mm. There is a mottled hypodense appearance of the left femoral neck with some sclerosis superiorly. This does raises suspicion of a lytic lesion within the femoral neck. There are degenerative changes in the lower lumbar spine with DISH IMPRESSION: 1. Comminuted impacted left femoral neck fracture in the intertrochanteric region as described above. 2. Mottled lucency and sclerotic density of the femoral neck raising the suspicion of a lytic lesion and pathologic fracture. Dictated by: Jordi Fairchild MD 04/11/2020 09:38 Jordi Fairchild MD in [place] 04/11/2020 09:38
[2020-04-10 20:56] VITALS: BP 168/80; PULSE 73; O2SAT 90
[2020-04-10 21:26] VITALS: BP 149/77; PULSE 72; O2SAT 91
--- NOTE | 2020-04-10 22:05 | PC.NURSE ---
I spoke with Chi in pharmacy for Lovenox order
[2020-04-10 22:11] VITALS: BMI 24.1
[2020-04-10 22:26] VITALS: BP 137/76; PULSE 75; O2SAT 90
[2020-04-10 23:33] LABS: Microscopic, Urine URINE MICROSCOPIC (MICROSCOPIC)
[2020-04-10 23:56] VITALS: BP 148/78; PULSE 76; O2SAT 90
[2020-04-11] VITALS (10 sets, daily range): BP systolic 100–146; BP diastolic 55–86; PULSE 64–102; RESP 16–20; TEMP 36.6–37.1; O2SAT 91–97; BMI 24.1
[2020-04-11 00:07] LABS: Appearance,Urine CLEAR (Clear); Bilirubin,Urine Negative (Negative); Blood, Urine TRACE-L (Negative); Color,Urine YELLOW (Yellow); Glucose,Urine (UA) Negative (Negative); Ketones,Urine Negative (Negative); Leukocyte Esterase,Urine Negative (Negative); Nitrate,Urine Negative (Negative); Protein,Urine 2+ (Negative); Specific Gravity, Urine 1.025 (1.005-1.030); Urobilinogen,Urine 0.2 EU/dl (0.2)
[2020-04-11 00:19] LABS: Amorphous Sediment,Urine Trace /lpf; RBC,Urine Occasional #/hpf (0-3)
--- NOTE | 2020-04-11 01:28 | PC.NURSE ---
pt arrived to floor from the ED
--- NOTE | 2020-04-11 05:42 | PC.NURSE ---
pt is AxOx4, no acute changes since arriving to floor, pt has requested pain medications one time and was treated per MAR, olson patent and draining clear yellow urine, pt bathed upon arrival to floor
--- NOTE | 2020-04-11 05:47 | PC.NURSE ---
pt unable to verify time of last dose of any of his home medications
[2020-04-11 05:56] LABS: POC Glucose,Bedside 107 (70-110)
--- NOTE | 2020-04-11 08:25 | PC.NURSE ---
Dr. Coombs notified of consult @ [id number]
--- NOTE | 2020-04-11 08:33 | HMH.HP ---
*Admission Date: 04/10/20 *Chief complaint: fall *History of present illness: this pt was walking and felt like knee gave out and fell with pain to lt hip - he was brought to ed by ems - pt with known marked djd knees - pt with no fever - no known covid -19 exposure - he has tob use, diabetes and heart dis on eliquis - he usually ambulates with cane - [facility] History I have reviewed the patient's past medical history: Yes Medical History: Reports:: Cerebrovascular Accident, Depression, Diabetes Mellitus Type 2, Hyperlipidemia, Hypertension, Myocardial Infarction Denies:: Cancer, Diabetes Mellitus Type 1, MRSA *Have you ever received a pneumonia vaccine?: No *Have you received a flu vaccine this season?: No Other Medical History: Reports: Arthritis, Thyroid Disease Laterality Cases: Bilateral: Carpal Tunnel Release Other Surgeries: Yes: No Previous Surgery, Cardiac Catheterization, Colonoscopy, Other Amputation: No Fractures: No - *Social History Smoking Status: Current every day smoker Tobacco Type: cigarettes # Packs/Day (cigarettes): 1 Alcohol Intake: former Alcohol Intake Frequency:: other Substance Use Type: crack/cocaine *Occupational Status:: retired Housing: house Household Members: family *Travel in the last 8 weeks: None - Psychiatric History Pschychiatric History:: Reports:: Depression Family Hx:: Asthma, Cancer, Diabetes, Heart Attack, Stroke, Alcoholism Review of Systems - Review of Systems Review of systems:: pertinent systems reviewed and negative unless documented below - Constitutional Denies fever(s) - Eyes Denies change in vision - ENT Denies sore throat - *Cardiovascular Denies chest pain at rest, Denies shortness of breath - *Respiratory Denies cough - *Gastrointestinal Denies abdominal pain - *Genitourinary Denies blood in urine - *Musculoskeletal Reports joint pain - Integumentary/Breasts Denies rash - *Neurologic Denies abnormal speech, Denies localized weakness, Denies headache(s) - Psychiatric Denies depression Meds Home Medications Medication Instructions Recorded Confirmed Type Albuterol Sulfate [Proventil Hfa] 2 puffs IH Q6 PRN 01/06/20 04/10/20 History Amlodipine Besylate [Amlodipine 5 mg PO DAILY 01/06/20 04/10/20 History 5mg tab] Fluticasone/Vilanterol [Breo 1 puff IH DAILY 01/06/20 04/10/20 History Ellipta 100-25 Mcg INH] Apixaban [Eliquis 5mg Tablet] 5 mg PO DAILY 04/10/20 04/10/20 History Duloxetine HCl [Cymbalta] 30 mg PO DAILY 04/10/20 04/10/20 History Gabapentin 300 mg PO BID 04/10/20 04/10/20 History Insulin Glargine,Hum.rec.anlog 30 units SQ PM 04/10/20 04/10/20 History [Lantus Solostar 100 Units/mL 3mL flexpen] Insulin Glargine,Hum.rec.anlog 20 units SQ DAILY 04/10/20 04/10/20 History [Lantus Solostar U-100 Insulin] Levothyroxine Sodium 100 mcg PO DAILY 04/10/20 04/10/20 History [Levothyroxine 100mcg (0.1MG) Tab] Allergies Allergy/AdvReac Type Severity Reaction Status Date / Time Iodinated Contrast Media Allergy Mild SICK Verified 04/08/20 13:07 [IODINATED CONTRAST MEDIA - IV DYE] Exam Vital signs and Labs for Last 24 Hours: Temp Pulse Resp BP Pulse Ox 98.2 F 87 18 102/65 L 97 04/11/20 07:40 04/11/20 07:40 04/11/20 07:40 04/11/20 07:40 04/11/20 07:40 Laboratory Results - last 24 hr 04/10/20 19:25: WBC 9.6, RBC 5.09, Hgb 14.6, Hct 45.1, MCV 88.6, MCH 28.7, MCHC 32.4, RDW 15.1, Plt Count 129 L, MPV 11.8 H, Neut % (Auto) 62.0, Lymph % (Auto) 31.8, [place]he % (Auto) 4.3, Eos % (Auto) 1.2, Baso % (Auto) 0.7, Neut # (Auto) 5.9, Lymph # (Auto) 3.0, [place]he # (Auto) 0.4, Eos # (Auto) 0.1, Baso # (Auto) 0.1 04/10/20 19:25: PT 11.4, INR 1.03, APTT 26.8 04/10/20 19:25: Sodium 140, Potassium 3.3 L, Chloride 102, Carbon Dioxide 32 H, Anion Gap 9.3, BUN 18, Creatinine 1.00, Estimated Creat Clear 78, Estimated GFR 74, Est GFR ( Amer) 89, Glucose 135 H, Calcium 9.3, Total Bilirubin 0.4, AST 26, ALT
[2020-04-11 08:55] LABS: Basophils # 0.1 K/mm3 (0-0.2); Basophils % 0.6 % (0.1-2.0); Eosinophils # 0.1 K/mm3 (0.0-0.4); Eosinophils % 0.7 % (0.1-12.0); Hematocrit 44.4 % (42.0-52.0); Hemoglobin 14.5 g/dL (14.1-18.0); Lymphocytes # 1.9 K/mm3 (0.7-4.5); Lymphocytes % 19.2 % (10-50); Mean Corpuscular HGB Conc 32.5 g/dL (31.8-35.4); Mean Corpuscular Volume 89.1 fl (80-94); Mean Platelet Volume 11.5 fl (7.4-10.4); Monocytes # 0.5 K/mm3 (0.1-1.0); Monocytes % 5.4 % (1.7-9.3); Neutrophils # 7.3 K/mm3 (1.8-7.8); Platelet Count 111 K/mm3 (142-424); Red Blood Count 4.99 M/mm3 (4.60-6.20); Red Cell Distribution Width 15.1 % (11.5-17.5); White Blood Count 9.8 K/mm3 (4.8-10.8)
[2020-04-11 08:58] LABS: Chloride 105 mmol/L (98-107); Potassium 4.2 mmoL/L (3.5-5.1); Sodium 138 mmol/L (136-145)
[2020-04-11 09:01] LABS: Anion Gap 5.2 mEq/L (5-15); Blood Urea Nitrogen 17 mg/dl (9-20); Carbon Dioxide 32 mmol/L (22.0-30.0); Creatinine Clearance Estimated 70 mL/min (50-200); Estimated Glomerular Filt Rate 66 ml/min (>60); GFR (African American) 80 ML/MIN (>60)
[2020-04-11 09:02] LABS: Calcium 8.9 mg/dl (8.4-10.2); Glucose 138 mg/dl (74-100); Magnesium 1.6 mg/dl (1.6-2.3)
--- NOTE | 2020-04-11 10:59 | P.CONPHA_ITS ---
[facility] VTE Monitoring - Patient Demographics Admission date: 04/11/20 Report Date: 04/11/20 Time: 10:59 Allergies/Adverse Reactions: Patient Allergies Iodinated Contrast Media [IODINATED CONTRAST MEDIA - IV DYE] Allergy (Mild, Verified 04/08/20 13:07) SICK Height: 1.83 m Weight: 80.9 kg Patient Problems: Current Active Problems Hip fracture, intertrochanteric (Acute) Bedbug bite (Acute) Thrombocytopenia (Acute) Hypothyroidism (Acute) Osteoarthritis (Chronic) Neuropathy (Chronic) History of CVA (cerebrovascular accident) (Chronic) Type 2 diabetes mellitus, with long-term current use of insulin (Chronic) Smoker (Chronic) HTN (hypertension) (Chronic) - VTE Risk Labs: VTE Related Lab Results Hgb 14.5 g/dL (14.1-18.0) 04/11/20 08:34 Hct 44.4 % (42.0-52.0) 04/11/20 08:34 Plt Count 111 K/mm3 (142-424) L 04/11/20 08:34 PT 11.4 seconds (9.4-11.8) 04/10/20 19:25 INR 1.03 (0.9-1.1) 04/10/20 19:25 APTT 26.8 seconds (23.6-34.0) 04/10/20 19:25 BUN 17 mg/dl (9-20) 04/11/20 08:34 Creatinine 1.10 mg/dl (0.66-1.25) 04/11/20 08:34 Estimated Creat Clear 70 mL/min (50-200) 04/11/20 08:34 Was VTE Risk Assessment Performed: Yes VTE Score: 5 VTE Risk Level: Low Risk - Prophylaxis Types of VTE Prophylaxis: Pharmacological Location of Applied Device: Not Applicable Pharmacologic Type: Enoxaparin (LOVENOX ORDERED)
[2020-04-11 11:48] LABS: POC Glucose,Bedside 182 (70-110)
--- NOTE | 2020-04-11 15:18 | HMH.ORTHOCON ---
*Admission Date: 04/11/20 *Reason for consult:: Fracture neck of femur, left *History of present illness: Patient is 69-year-old male admitted from the ER overnight for management of left hip fracture. He was brought to the ER with LEFT hip pain after a mechanical fall outside on the street last evening. Patient says he felt like the knee gave out while walking outside and he had fallen injuring the left hip. Patient could not get up and walk after the fall. Patient denies any dizziness, headache, chest or neck pain. He lives with his ficarlitos?e and usually walks with the help of a cane. He says he has bilateral chronic knee pain secondary to degenerative arthritis. He says he is pain is well controlled at rest but trying to move the LEFT leg causes hip pain. He denies loss of consciousness, chest pain and shortness of breath. He had a similar injury to the RIGHT hip about 5-6 years ago and underwent a hemiarthroplasty of the hip in 2014. He is past medical history includes hypertension, coronary artery disease, previous CVA, diabetes mellitus on insulin, diabetic neuropathy, chronic tobacco use and bilateral knee arthritis. No history of any distal tingling or numbness. No history of any left hip pain prior to the injury. [facility] History I have reviewed the patient's past medical history: Yes Medical History: Reports:: Cerebrovascular Accident, Depression, Diabetes Mellitus Type 2, Hyperlipidemia, Hypertension, Myocardial Infarction Denies:: Cancer, Diabetes Mellitus Type 1, MRSA *Have you ever received a pneumonia vaccine?: No *Have you received a flu vaccine this season?: No Other Medical History: Reports: Arthritis, Thyroid Disease Laterality Cases: Bilateral: Carpal Tunnel Release Other Surgeries: Yes: No Previous Surgery, Cardiac Catheterization, Colonoscopy, Other Amputation: No Fractures: No - *Social History Smoking Status: Current every day smoker Tobacco Type: cigarettes # Packs/Day (cigarettes): 1 Alcohol Intake: former Alcohol Intake Frequency:: other Substance Use Type: former substance user, crack/cocaine, other *Occupational Status:: disabled Housing: house Household Members: family *Travel in the last 8 weeks: None - Psychiatric History Pschychiatric History:: Reports:: Depression Family Hx:: Asthma, Cancer, Diabetes, Heart Attack, Stroke, Alcoholism Review of Systems - Review of Systems Review of systems:: pertinent systems reviewed and negative unless documented below - Constitutional Denies chills, Denies fever(s) - Eyes Denies change in vision - ENT Denies abnormal hearing - *Cardiovascular Denies chest pain, Denies shortness of breath - *Respiratory Denies chest congestion, Denies cough, Denies wheezing - *Gastrointestinal Denies abdominal pain, Denies change in bowel habits - *Musculoskeletal Reports joint pain, Reports limited joint movement - *Neurologic Denies abnormal speech, Denies localized weakness, Denies headache(s), Denies tingling/numbness/burning sensations - Endocrine Denies cold intolerance, Denies heat intolerance Meds Home Medications Medication Instructions Recorded Confirmed Type Albuterol Sulfate [Proventil Hfa] 2 puffs IH Q6 PRN 01/06/20 04/10/20 History Fluticasone/Vilanterol [Breo 1 puff IH DAILY 01/06/20 04/10/20 History Ellipta 100-25 Mcg INH] Apixaban [Eliquis 5mg Tablet] 5 mg PO DAILY 04/10/20 04/10/20 History Duloxetine HCl [Cymbalta] 30 mg PO DAILY 04/10/20 04/10/20 History Gabapentin 300 mg PO BID 04/10/20 04/10/20 History Insulin Glargine,Hum.rec.anlog 30 units SQ PM 04/10/20 04/10/20 History [Lantus Solostar 100 Units/mL 3mL flexpen] Insulin Glargine,Hum.rec.anlog 20 units SQ DAILY 04/10/20 04/10/20 History [Lantus Solostar U-100 Insulin] Levothyroxine Sodium 100 mcg PO DAILY 04/10/20 04/10/20 History [Levothyroxine 100mcg (0.1MG) Tab] Amlodipine Besylate 5 mg PO DAILY 04/11/20 04/11/20 History Allergies Allergy/AdvReac Type
[2020-04-11 16:20] LABS: POC Glucose,Bedside 173 (70-110)
--- NOTE | 2020-04-11 17:48 | PC.NURSE ---
A&OX4. PT HAS TOLERATED 2L NC WELL THROUGHOUT SHIFT. RESPIRATIONS REGULAR AND UNLABORED. LUNG SOUNDS BILATERALLY CLEAR. NO COUGH NOTED. NO EDEMA NOTED. +2 PULSES NOTED THROUGHOUT. ACTIVE BOWEL SOUNDS HEARD IN ALL 4 QUADRANTS. SOFT AND NONTENDER ABDOMEN. NO BM THUS FAR. HAND INVOICING SPECIALIST EQUAL. PT VOIDS PER PETERS. CLEAR YELLOW URINE NOTED. NO KINKS NOTED. PT HAS REPORTED PAIN ONCE THUS FAR AND RECEIVED MORPHINE PER MAR. ON REASSESSMENT, PT WAS RESTING W EYES CLOSED. NS INFUSING AT 75ML/HR. PT HAS SLEPT MOST OF SHIFT. PT IS IN BUCKS TRACTION TOLERATING WELL. BED IN LOWEST POSITION. CALL LIGHT WITHIN REACH. VSS. WILL CONTINUE TO MONITOR.
[2020-04-11 22:09] LABS: POC Glucose,Bedside 229 (70-110)
[2020-04-12 04:00] VITALS: BP 132/64; PULSE 65; RESP 18; TEMP 36.8; O2SAT 94
--- NOTE | 2020-04-12 04:42 | PC.NURSE ---
A&OX4. PT. HAS NOT REPORTED ANY PAIN, N/V/D, DIZZINESS. BUCKS TRACTION IN PLACE. BLE EQUAL IN TEMPERATURE AND FEELING. FC DARK YELLOW WITH SEDIMENT.
[2020-04-12 04:44] VITALS: O2SAT 87
[2020-04-12 04:45] VITALS: BMI 26.6
--- NOTE | 2020-04-12 04:45 | PC.NURSE ---
patient has bucks traction in use at this time
[2020-04-12 06:06] LABS: POC Glucose,Bedside 156 (70-110)
[2020-04-12 08:00] VITALS: BP 159/109; PULSE 66; RESP 20; TEMP 36.8; O2SAT 93
--- NOTE | 2020-04-12 09:01 | HMH.ACPN2 ---
Internal Medicine - PN: Subj *Date: 04/13/20 *Time: 07:27 Interval history: pt doing ok this am - bucks traction-vs stable Exam Vital signs and Labs for Last 24 Hours: Temp Pulse Resp BP Pulse Ox 98.3 F 66 20 159/109 H 93 L 04/12/20 08:00 04/12/20 08:00 04/12/20 08:00 04/12/20 08:00 04/12/20 08:00 Laboratory Results - last 24 hr 04/11/20 08:34: Carbon Dioxide 32 H, Anion Gap 5.2, BUN 17, Creatinine 1.10, Estimated Creat Clear 70, Estimated GFR 66, Est GFR ( Amer) 80, Glucose 138 H, Calcium 8.9, Magnesium 1.6 04/11/20 11:14: POC Glucose 182 H 04/11/20 16:02: POC Glucose 173 H 04/11/20 21:58: POC Glucose 229 H 04/12/20 05:42: POC Glucose 156 H I & O for Last 24 hours: Intake & Output 04/09/20 04/10/20 04/11/20 04/12/20 11:59 11:59 11:59 11:59 Intake Total 1708 / 1708 1993 Output Total 775 / 775 400 / 400 Balance 933 / 933 1594 / 1594 Weight 178 lb 5.663 oz 196 lb 7 oz - Constitutional no acute distress - *Routine HEENT Exam Head: Present: normocephalic Eye: Present: EOMI, PERRL ENT: Present: mucous membranes dry - *Routine Neck Exam Present: supple - *Routine Respiratory Exam Present: CTA bilaterally - *Routine Cardiovascular Exam Present: RRR - *Routine Abdominal Exam Present: soft - *Routine Extremities Exam Comments: lt hip fx in bucks traction - *Routine Skin Exam Present: intact - *Routine Neurological Exam Present: alert, CN II-XII intact - Routine Psychiatric Exam Present: normal affect Assessment and Plan (1) Hip fracture, intertrochanteric Status: Acute Qualifiers: Encounter type: initial encounter Fracture type: closed Fracture alignment: displaced Laterality: left Qualified Code(s): S72.142A - Displaced intertrochanteric fracture of left femur, initial encounter for closed fracture Category: Medical Code(s): S72.143A - Displaced intertrochanteric fracture of unspecified femur, initial encounter for closed fracture (2) Hypothyroidism Status: Acute Qualifiers: Hypothyroidism type: acquired Qualified Code(s): E03.9 - Hypothyroidism, unspecified Category: Medical Code(s): E03.9 - Hypothyroidism, unspecified (3) Neuropathy Status: Chronic Category: Medical Code(s): G62.9 - Polyneuropathy, unspecified (4) History of CVA (cerebrovascular accident) Status: Chronic Category: Medical Code(s): Z86.73 - Personal history of transient ischemic attack (TIA), and cerebral infarction without residual deficits (5) Type 2 diabetes mellitus, with long-term current use of insulin Status: Chronic Qualifiers: Diabetes mellitus complication status: with other specified complication Qualified Code(s): E11.69 - Type 2 diabetes mellitus with other specified complication; Z79.4 - long term care administrator (current) use of insulin Category: Medical Code(s): E11.9 - Type 2 diabetes mellitus without complications; Z79.4 - shelter (current) use of insulin (6) Smoker Status: Chronic Category: Social Hx Code(s): F17.200 - Nicotine dependence, unspecified, uncomplicated (7) HTN (hypertension) Status: Chronic Qualifiers: Hypertension type: essential hypertension Qualified Code(s): I10 - Essential (primary) hypertension Category: Medical Code(s): I10 - Essential (primary) hypertension
[2020-04-12 10:15] LABS: POC Glucose,Bedside 246 (70-110)
[2020-04-12 11:15] LABS: Basophils # 0.2 K/mm3 (0-0.2); Basophils % 1.7 % (0.1-2.0); Eosinophils # 0.1 K/mm3 (0.0-0.4); Hematocrit 37.6 % (42.0-52.0); Lymphocytes # 2.2 K/mm3 (0.7-4.5); Lymphocytes % 20.1 % (10-50); Mean Corpuscular Hemoglobin 29.5 pg (27.0-31.2); Mean Platelet Volume 19.3 fl (7.4-10.4); Monocytes # 0.6 K/mm3 (0.1-1.0); Monocytes % 5.8 % (1.7-9.3); Neutrophils # 7.7 K/mm3 (1.8-7.8); Neutrophils % 71.4 % (37.0-80.0); Platelet Count 82 K/mm3 (142-424); Red Blood Count 4.09 M/mm3 (4.60-6.20); Red Cell Distribution Width 17.2 % (11.5-17.5); White Blood Count 10.8 K/mm3 (4.8-10.8)
[2020-04-12 11:22] LABS: Chloride 105 mmol/L (98-107); Potassium 3.9 mmoL/L (3.5-5.1); Sodium 136 mmol/L (136-145)
[2020-04-12 11:25] LABS: Anion Gap 4.9 mEq/L (5-15); Blood Urea Nitrogen 24 mg/dl (9-20); Calcium 8.4 mg/dl (8.4-10.2); Carbon Dioxide 30 mmol/L (22.0-30.0); Creatinine Clearance Estimated 66 mL/min (50-200); Estimated Glomerular Filt Rate 54 ml/min (>60); GFR (African American) 66 ML/MIN (>60); Glucose 242 mg/dl (74-100)
[2020-04-12 12:04] LABS: POC Glucose,Bedside 263 (70-110)
[2020-04-12 15:19] VITALS: BP 125/66; PULSE 75; RESP 16; TEMP 36.7; O2SAT 95
--- NOTE | 2020-04-12 15:21 | PC.NURSE ---
A&OX4. PT HAS TOLERATED 2L NC WELL THROUGHOUT SHIFT. RESPIRATIONS REGULAR AND UNLABORED. LUNG SOUNDS BILATERALLY CLEAR. NO COUGH NOTED. NO EDEMA NOTED. +2 PULSES NOTED THROUGHOUT. ACTIVE BOWEL SOUNDS HEARD IN ALL 4 QUADRANTS. SOFT AND NONTENDER ABDOMEN. NO BM THUS FAR. HAND ROTARY CUTTER OPERATOR EQUAL. PT VOIDS PER PETERS. CLEAR YELLOW URINE NOTED. NO KINKS NOTED. PT HAS REPORTED PAIN ONCE THUS FAR AND RECEIVED MORPHINE PER MAR. ON REASSESSMENT, PT WAS RESTING W EYES CLOSED. NS INFUSING AT 75ML/HR. PT HAS SLEPT OFF AND ON THROUGHOUT SHIFT. PT IS IN BUCKS TRACTION TOLERATING WELL. BED IN LOWEST POSITION. CALL LIGHT WITHIN REACH. VSS. WILL CONTINUE TO MONITOR.
[2020-04-12 16:46] LABS: POC Glucose,Bedside 87 (70-110)
[2020-04-12 20:00] VITALS: BP 134/59; PULSE 61; RESP 16; TEMP 36.7; O2SAT 91
[2020-04-12 21:05] LABS: POC Glucose,Bedside 104 (70-110)
[2020-04-13] VITALS (15 sets, daily range): BP systolic 121–178; BP diastolic 59–81; PULSE 57–95; RESP 12–18; TEMP 36.1–37.7; O2SAT 90–96; BMI 26.5
--- NOTE | 2020-04-13 05:01 | PC.NURSE ---
PT. HAS NOT C/O N/V/D, SOA, DIZZINESS OR PAIN. BUCKS TRACTION IN PLACE; PT. TOLERATING WELL. PT. INTERMITTENTLY REMOVES O2 NC. FC IN PLACE. RESTING AT THIS TIME.
[2020-04-13 06:20] LABS: POC Glucose,Bedside 83 (70-110)
--- NOTE | 2020-04-13 07:54 | CA_ITS ---
APPROVED REPORT EXAM: Comprehensive 2D, Doppler, and color-flow Echocardiogram Supervisor Nutritional Yeast: Kassandra Arndt RT(R) Ht: 6 ft 0 in Wt: 196lbs BSA: 2.11 BP: 159/109 mmHg Indications: murmur, smoker, HTN, DM, hyperlipidemia, hx ND, left hip fracture, preop clearance hip fracture, hx CVA 2D Dimensions LVOT 1.85 cm (M/F) 1.5-2.5 LA Volume 47.40 mL LA Volume Index 22.46 mL/m2 (M/F) 16-34 M-Mode Dimensions RVDd 2.12 cm (0.9-2.6) LA Diam 4.35 cm (1.9-4.0) LVDd 4.66 cm (3.5-5.7) Ao Diam 3.51 cm (2.0-3.7) LVDs 3.30 cm (3.5-5.7) IVSd 1.14 cm (0.6-1.1) PWd 0.91 cm (0.6-1.1) EF (Teich) 56.00% FS 29.20% EDV (Teich) 100.30 mL ESV (Teich) 44.10 mL LV Diastology E Decel Time 183.00 (160-240 msec) E/A Ratio 0.6 MED E' 8.20 (< 7 cm/sec) E'/MED E' Ratio 9.39 (>14) LAT E' 9.70 (<10 cm/sec) E/LAT E' Ratio 7.94 (>14) Mitral Valve MV E Max Marciano. 77.00 (40-130 cm/s) MV A Velocity 140.00 (40-130 cm/s) E/A Ratio 0.55 MV Decel. Time 183.00 (160-240 ms) MV PHT 54.00 ms Left Ventricle Left atrium is mildly enlarged, left ventricle is normal size, mild concentric left ventricular hypertrophy, visually estimated ejection fraction 55% with no regional wall motion abnormality, grade 1 diastolic dysfunction seen without tissue Doppler evidence of raise left atrial pressure. Right Ventricle Right atrium and right ventricle are normal size and contractility. Aortic Valve Aortic valve is minimally thickened and fibrosed, there is no aortic stenosis or aortic insufficiency. Mitral Valve Mitral valve is grossly normal, there is mild mitral regurgitation. Tricuspid Valve Tricuspid valve grossly normal, there is mild tricuspid regurgitation, tricuspid regurgitation jet velocity is inadequate for calculation of the right ventricular systolic pressure. Pulmonic Valve Pulmonic valve is poorly visualized. Great Vessels Aortic root is normal size. Pericardium No significant pericardial effusion noted. Conclusion 1. Mildly enlarged left atrium, normal left ventricular size, mild concentric left ventricular hypertrophy, visually estimated ejection fraction 55% with no regional wall motion abnormality, grade 1 diastolic dysfunction seen without tissue Doppler evidence of raise left atrial pressure. 2. Mild mitral and tricuspid regurgitation. 3. Thickened pericardial effusion noted Electronically signed by : Manolo Begum, 04/13/2020 21:27:43
--- NOTE | 2020-04-13 08:23 | ECG_ITS ---
APPROVED REPORT Exam: Resting ECG HR:56 bpm ECG Measurements Heart Rate 56 AXES ND 182 P 29 QRSd 86 QRS 17 QT 442 T 51 QTc 426 Conclusion Sinus bradycardia Possible Inferior infarct, age undetermined Abnormal ECG Electronically signed by : Jonathon Perales, 04/14/2020 07:11:50
[2020-04-13 09:16] LABS: Basophils % 0.6 % (0.1-2.0); Eosinophils # 0.1 K/mm3 (0.0-0.4); Hematocrit 33.7 % (42.0-52.0); Hemoglobin 10.9 g/dL (14.1-18.0); Lymphocytes # 1.7 K/mm3 (0.7-4.5); Lymphocytes % 22.1 % (10-50); Mean Corpuscular HGB Conc 32.2 g/dL (31.8-35.4); Mean Corpuscular Hemoglobin 28.6 pg (27.0-31.2); Mean Corpuscular Volume 88.7 fl (80-94); Mean Platelet Volume 11.9 fl (7.4-10.4); Monocytes # 0.6 K/mm3 (0.1-1.0); Monocytes % 8.3 % (1.7-9.3); Neutrophils # 5.1 K/mm3 (1.8-7.8); Neutrophils % 67.9 % (37.0-80.0); Platelet Count 78 K/mm3 (142-424); Red Cell Distribution Width 14.6 % (11.5-17.5); White Blood Count 7.5 K/mm3 (4.8-10.8)
[2020-04-13 09:19] LABS: Chloride 107 mmol/L (98-107); Sodium 138 mmol/L (136-145)
[2020-04-13 09:20] LABS: Potassium 3.8 mmoL/L (3.5-5.1)
[2020-04-13 09:22] LABS: Blood Urea Nitrogen 18 mg/dl (9-20); Creatinine Clearance Estimated 85 mL/min (50-200); Estimated Glomerular Filt Rate 74 ml/min (>60); GFR (African American) 89 ML/MIN (>60)
[2020-04-13 09:23] LABS: Anion Gap 4.8 mEq/L (5-15); Calcium 8.4 mg/dl (8.4-10.2); Carbon Dioxide 30 mmol/L (22.0-30.0); Glucose 93 mg/dl (74-100)
--- NOTE | 2020-04-13 10:23 | HMH.CNCARD ---
History of Present Illness Consult date: 04/13/20 Requesting physician: Maurice Ndiaye Consult reason: pre-op evaluation Chief complaint: Fracture Left hip Additional Medical History:: 1. Fractured left hip (04/13/20) 2. Diabetes mellitus a. Controlled 3. Coronary artery disease a. Hx of [place] ( unknown date) 4. Carotid artery stenosis a. CARLIE less than 20% b. LICA 20-49% (2019) 5. Essential hypertension 6. Hyperlipidemia 7. Hypothyroidism 8. Neuropathy 9. Tobacco abuse 10. History of CVA History of present illness: 69-year-old male presented to [facility] on 04/11/20 after a fall. Patient does known to have fracture of the left hip with rotation noted. Patient is currently in a [place] traction. Patient is resting quietly and comfortably awaiting surgery. Patient denies chest pain, pressure or tightness. Patient denies shortness of breath. She denies palpitations or dizziness. Patient does have known history of coronary artery disease. History of [place] unknown of date. Last stress test revealed a large fixed deficit in the inferior wall consistent with infarct. The stress images did suggest mild ischemic changes (12/22). Patient has remained symptom-free so therefore has not undergone any heart catheterizations. Echocardiogram (2018) EF 55% with normal RV size. Patient does have history of carotid artery stenosis (2019). Patient does have history of hypertension, hyperlipidemia and tobacco use. Initial EKG revealed sinus bradycardia with possible inferior infarct abnormal EKG with a heart rate of 56 bpm. Discussed plan of care with Dr. Hill. The plan is for patient to undergo surgery for his left hip fracture. Echocardiogram preliminary result revealed EF of 50 to 65% with mild MR and TR noted. Due to patient being asymptomatic even though he has an abnormal stress test, patient is at a low and acceptable risk to proceed with his left hip surgery. On an outpatient basis patient will need carotid ultrasound due to CHANDA. Thank you for letting cardiology participate in the care of this patient. [facility] History I have reviewed the patient's past medical history: Yes Medical History: Reports:: Cerebrovascular Accident, Depression, Diabetes Mellitus Type 2, Hyperlipidemia, Hypertension, Myocardial Infarction Denies:: Cancer, Diabetes Mellitus Type 1, MRSA *Have you ever received a pneumonia vaccine?: No *Have you received a flu vaccine this season?: No Other Medical History: Reports: Arthritis, Thyroid Disease Laterality Cases: Bilateral: Carpal Tunnel Release Other Surgeries: Yes: No Previous Surgery, Cardiac Catheterization, Colonoscopy, Other Amputation: No Fractures: No - *Social History Smoking Status: Current every day smoker Tobacco Type: cigarettes # Packs/Day (cigarettes): 1 Alcohol Intake: former Alcohol Intake Frequency:: other Substance Use Type: crack/cocaine *Occupational Status:: retired Housing: house Household Members: family *Travel in the last 8 weeks: None - Psychiatric History Pschychiatric History:: Reports:: Depression Family Hx:: Asthma, Cancer, Diabetes, Heart Attack, Stroke, Alcoholism Meds Home Medications Medication Instructions Recorded Confirmed Type Albuterol Sulfate [Proventil Hfa] 2 puffs IH Q6 PRN 01/06/20 04/10/20 History Fluticasone/Vilanterol [Breo 1 puff IH DAILY 01/06/20 04/10/20 History Ellipta 100-25 Mcg INH] Apixaban [Eliquis 5mg Tablet] 5 mg PO DAILY 04/10/20 04/10/20 History Duloxetine HCl [Cymbalta] 30 mg PO DAILY 04/10/20 04/10/20 History Gabapentin 300 mg PO BID 04/10/20 04/10/20 History Insulin Glargine,Hum.rec.anlog 30 units SQ PM 04/10/20 04/10/20 History [Lantus Solostar 100 Units/mL 3mL flexpen] Insulin Glargine,Hum.rec.anlog 20 units SQ DAILY 04/10/20 04/10/20 History [Lantus Solostar U-100 Insulin] Levothyroxine Sodium 100 mcg PO DAILY 04/10/20 04/10/20 History [Levothyroxine 100mcg (0.1MG) Tab] Amlodipine
[2020-04-13 11:14] LABS: POC Glucose,Bedside 102 (70-110)
--- NOTE | 2020-04-13 12:00 | XR_ITS ---
PROCEDURE: XR HIP LT 2-3V W/PELVIS CLINICAL INDICATION: GAMMA NAIL LEFT HIP Follow-up surgery COMPARISON: CR XR HIP LT 2-3V W/PELVIS from 04/10/2020 FINDINGS: Fluoroscopy time: 1.1 minute. Status post gamma nail placement into the left femoral neck with intramedullary benoit which appears to be in good alignment on the limited images submitted. IMPRESSION: S/p ORIF left hip with good alignment Dictated by: Jordi Fairchild MD 04/13/2020 16:50 Jordi Fairchild MD in [place] 04/13/2020 16:50
--- NOTE | 2020-04-13 12:00 | PC.NURSE ---
Pt to surgery at 1141, just cleared per cardiolody.
[2020-04-13 12:05] LABS: POC Glucose,Bedside 86 (70-110)
--- NOTE | 2020-04-13 12:16 | HMH.ACPN2 ---
Internal Medicine - PN: Subj *Date: 04/13/20 *Time: 08:00 Interval history: pt laying in bed, states no c/o. leg in traction Exam Vital signs and Labs for Last 24 Hours: Temp Pulse Resp BP Pulse Ox 98.7 F 57 L 18 178/70 H 93 L 04/13/20 07:50 04/13/20 07:50 04/13/20 07:50 04/13/20 07:50 04/13/20 07:50 Laboratory Results - last 24 hr 04/12/20 16:31: POC Glucose 87 04/12/20 20:52: POC Glucose 104 04/13/20 06:12: POC Glucose 83 04/13/20 09:00: WBC 7.5 D, RBC 3.80 L, Hgb 10.9 L, Hct 33.7 L, MCV 88.7, MCH 28.6, MCHC 32.2, RDW 14.6, Plt Count 78 L, MPV 11.9 H, Neut % (Auto) 67.9, Lymph % (Auto) 22.1, [place] % (Auto) 8.3, Eos % (Auto) 1.0, Baso % (Auto) 0.6, Neut # (Auto) 5.1, Lymph # (Auto) 1.7, [place] # (Auto) 0.6, Eos # (Auto) 0.1, Baso # (Auto) 0.0 04/13/20 09:00: Sodium 138, Potassium 3.8, Chloride 107, Carbon Dioxide 30, Anion Gap 4.8 L, BUN 18, Creatinine 1.00 D, Estimated Creat Clear 85, Estimated GFR 74, Est GFR ( Amer) 89 D, Glucose 93 D, Calcium 8.4 04/13/20 10:52: POC Glucose 102 04/13/20 11:58: POC Glucose 86 I & O for Last 24 hours: Intake & Output 04/11/20 04/12/20 04/13/20 04/14/20 11:59 11:59 11:59 11:59 Intake Total 1708 / 1708 1993 Output Total 775 / 775 400 / 400 1200 / 1200 Balance 933 / 933 1594 / 1594 851 / 851 Weight 178 lb 5.663 oz 196 lb 7 oz - Constitutional no acute distress - *Routine HEENT Exam Head: Present: normocephalic Eye: Present: PERRL ENT: Present: mucous membranes moist - *Routine Neck Exam Present: supple. Absent: lymphadenopathy - *Routine Respiratory Exam Present: CTA bilaterally - *Routine Cardiovascular Exam Present: RRR - *Routine Abdominal Exam Present: soft, normoactive bowel sounds. Absent: tenderness - *Routine Extremities Exam Absent: cyanosis, clubbing, edema Comments: left hip in traction - *Routine Skin Exam Present: warm. Absent: rash - *Routine Neurological Exam Present: alert, oriented X3 - Routine Psychiatric Exam Present: normal affect Assessment and Plan (1) Hip fracture, intertrochanteric Status: Acute Qualifiers: Encounter type: initial encounter Fracture type: closed Fracture alignment: displaced Laterality: left Qualified Code(s): S72.142A - Displaced intertrochanteric fracture of left femur, initial encounter for closed fracture Category: Medical Code(s): S72.143A - Displaced intertrochanteric fracture of unspecified femur, initial encounter for closed fracture (2) Hypothyroidism Status: Acute Qualifiers: Hypothyroidism type: acquired Qualified Code(s): E03.9 - Hypothyroidism, unspecified Category: Medical Code(s): E03.9 - Hypothyroidism, unspecified (3) Neuropathy Status: Chronic Category: Medical Code(s): G62.9 - Polyneuropathy, unspecified (4) History of CVA (cerebrovascular accident) Status: Chronic Category: Medical Code(s): Z86.73 - Personal history of transient ischemic attack (TIA), and cerebral infarction without residual deficits (5) Type 2 diabetes mellitus, with long-term current use of insulin Status: Chronic Qualifiers: Diabetes mellitus complication status: with other specified complication Qualified Code(s): E11.69 - Type 2 diabetes mellitus with other specified complication; Z79.4 - long term (current) use of insulin Category: Medical Code(s): E11.9 - Type 2 diabetes mellitus without complications; Z79.4 - senior living (current) use of insulin (6) Smoker Status: Chronic Category: Social Hx Code(s): F17.200 - Nicotine dependence, unspecified, uncomplicated (7) HTN (hypertension) Status: Chronic Qualifiers: Hypertension type: essential hypertension Qualified Code(s): I10 - Essential (primary) hypertension Category: Medical Code(s): I10 - Essential (primary) hypertension - Assessment and plan all Dx Assessment and Plan for all problems:: rounded with dr yang all or
--- NOTE | 2020-04-13 14:04 | HMH.ANESCL ---
[facility] Anesthesia Checklist - Structural Data Admitted From: Inpatient Planned Operative Procedure/s: orif l hip Consent for Planned Operative Procedure(s) Verified: Yes - Airway Assessment C-Spine Mobility Assessed: Yes TMJ Mobility Assessed: Yes Dentition: Poor Dentition - Anesthesia Plan Anesthesia Risk discussed: Yes Anesthesia Plan: Verified ASA Class: III Anesthesia Type: Spinal [facility] History I have reviewed the patient's past medical history: Yes Medical History: Reports:: Cerebrovascular Accident, Depression, Diabetes Mellitus Type 2, Hyperlipidemia, Hypertension, Myocardial Infarction Denies:: Cancer, Diabetes Mellitus Type 1, MRSA *Have you ever received a pneumonia vaccine?: No *Have you received a flu vaccine this season?: No Other Medical History: Reports: Arthritis, Thyroid Disease Anesthesia experience/problems:: none Laterality Cases: Bilateral: Carpal Tunnel Release Other Surgeries: Yes: No Previous Surgery, Cardiac Catheterization, Colonoscopy, Other Amputation: No Fractures: No - *Social History Smoking Status: Current every day smoker Tobacco Type: cigarettes # Packs/Day (cigarettes): 1 Alcohol Intake: former Alcohol Intake Frequency:: other Substance Use Type: crack/cocaine *Occupational Status:: retired Housing: house Household Members: family *Travel in the last 8 weeks: None - Psychiatric History Pschychiatric History:: Reports:: Depression Family Hx:: Asthma, Cancer, Diabetes, Heart Attack, Stroke, Alcoholism
--- NOTE | 2020-04-13 15:23 | HMH.ANESI ---
[facility] Anesthesia Record Part I Intake, IV Amount: 1,500 Estimated blood loss (mL): 150 Urine output (mL): 250 Blood Pressure: 139/64 SaO2: 94 Pulse Rate: 83 Respiratory Rate: 12 Temperature: 97 F Patient is:: Awake, Stable Stable to PACU at:: 15:15
--- NOTE | 2020-04-13 15:57 | HMH.OPNOTE ---
Date of procedure: 04/13/20 Pre-op Diagnosis:: 1. Closed, displaced intertrochanteric fracture, left femur 2. Cystic lesion, left femoral neck Post-op Diagnosis:: Same Procedure performed:: 1. Closed reduction and cephalomedullary nailing, left femoral neck fracture 2. Femoral neck reamings for biopsy Surgeon:: Mal Coombs MD Accounting Instructor(s):: Elizabeth Orona STOCK PREPARATION OPERATOR:: Scott Rivera Anesthesia: spinal Estimated blood loss (mL): 150 Clinical Note:: Patient is a 69-year-old male who had a mechanical fall after his knee gave out sustaining an injury to his left hip couple of days ago. Following evaluation in the emergency room where x-ray showed a displaced and comminuted intertrochanteric fracture of the left proximal femur, patient was admitted for further management. After evaluating the patient, I have discussed the diagnosis and management options in detail including nonsurgical and surgical, with the patient. After a detailed discussion with the patient a decision was made to fix the fracture internally with a cephalo-medullary nail. I have discussed the procedure, risks and benefits, postoperative recovery and rehabilitation and the expected outcomes. The complications discussed include but are not limited to DVT, PE, infection, bleeding, injury to nerves and blood vessels, screw cut-out/implant failure, loss of fixation, nonunion, malunion/malrotation, osteonecrosis of the femoral head, femoral shaft fracture, painful hardware, heterotopic ossification, stiffness, weakness, incomplete relief of pain, incomplete return of function or motion and the likely need for further surgery in future, and anesthetic/medical complications including heart attack, stroke, transfusion reaction or . The patient wished to proceed with the surgical remediation. X-rays and CT scan showed a cystic lesion in the femoral neck which appears unchanged from previous hip x-rays 6 years ago. To further evaluate this lesion, we have decided to obtain reamings for histopathology. Consent form was reviewed and signed by me. The limb was appropriately marked and initialed by me. Surgery was delayed for couple of days as patient was on Eliquis prior to admission and also needed cardiac clearance prior to surgery. Following appropriate preoperative workup including medical and clearance, patient is brought to the operating room for surgery. The surgery is indicated to reduce and stabilize the fracture, relieve pain and improve function. Patient understood the risks, agreed to proceed with surgery, signed the consent form and no guarantees or assurances were given or implied. Operative findings:: Comminuted, displaced and unstable intertrochanteric fracture left proximal femur as noted on the preoperative x-rays. The fracture is well reduced with closed manipulation prior to fixation. Cystic lesion in the femoral neck as before. Bone quality is good. Operative note:: Following appropriate preoperative workup and medical/cardiac clearance, patient is brought to the operating room and a spinal anesthesia was administered by the job lithographer. Patient was then positioned supine on the fracture table and all the bony prominences were appropriately padded. The left foot was secured in the footplate and the footplate was attached to the fracture table. The right leg was placed out of the way in a leg card. Under fluoroscopic guidance the fracture was reduced by traction and satisfactory reduction was obtained. The reduction was confirmed on both AP and lateral views. The left hip and thigh were then prepped and draped in the usual sterile fashion. Administration of prophylactic antibiotics was confirmed with the job lithographer (2 g of IV Ancef was administered). A preprocedure timeout was performed as per the hospital protocol. After marking the level of the greater trochanter on the skin under fluoroscopy, a skin incision was made proximal to the greater trochanter in line with the femoral s
[2020-04-13 17:17] LABS: POC Glucose,Bedside 96 (70-110)
--- NOTE | 2020-04-13 21:35 | PC.NURSE ---
Pt to floor from surgery at approx 1600 from L hip surgery, dsg is cdi to L hip. VSS. Alert to self, still slightly sedated. Arousable to voice. CB in reach. Pt placed on 3.5 L NC. No emesis, or nausea. S1,S2. Rhochi scattered lung hendricks. Did apply continous pulse ox to pt, because he kept atking 02 off. Pt unable to swallow water at this time, redirection necessary. Educated pt to leave in place. VSS.
[2020-04-13 22:43] LABS: POC Glucose,Bedside 145 (70-110)
[2020-04-14] VITALS: BP 143/76; PULSE 110; RESP 17; TEMP 37; O2SAT 94
[2020-04-14 05:06] VITALS: BMI 24.8
--- NOTE | 2020-04-14 05:08 | PC.NURSE ---
patient tolerated left hip surgery with dressing c/d/i. Denies n/v or pain. Call light within reach and bed at lowest level for safety. Will continue to monitor.
[2020-04-14 06:11] LABS: POC Glucose,Bedside 190 (70-110)
[2020-04-14 06:45] LABS: Basophils % 0.2 % (0.1-2.0); Eosinophils % 0.1 % (0.1-12.0); Hematocrit 33.7 % (42.0-52.0); Hemoglobin 10.9 g/dL (14.1-18.0); Lymphocytes # 1.4 K/mm3 (0.7-4.5); Mean Corpuscular HGB Conc 32.3 g/dL (31.8-35.4); Mean Corpuscular Volume 89.9 fl (80-94); Mean Platelet Volume 11.1 fl (7.4-10.4); Monocytes # 0.8 K/mm3 (0.1-1.0); Monocytes % 6.9 % (1.7-9.3); Neutrophils # 9.4 K/mm3 (1.8-7.8); Neutrophils % 80.7 % (37.0-80.0); Platelet Count 80 K/mm3 (142-424); Red Blood Count 3.75 M/mm3 (4.60-6.20); Red Cell Distribution Width 14.6 % (11.5-17.5); White Blood Count 11.7 K/mm3 (4.8-10.8)
[2020-04-14 06:57] LABS: Chloride 108 mmol/L (98-107); Potassium 3.5 mmoL/L (3.5-5.1); Sodium 137 mmol/L (136-145)
[2020-04-14 07:00] LABS: Alanine Aminotransferase 15 U/L (12-78); Albumin Level 2.7 g/dl (3.5-5.0); Alkaline Phosphatase 94 U/L (38-126); Anion Gap 6.5 mEq/L (5-15); Aspartate Amino Transferase 26 U/L (17-59); Bilirubin,Total 1.2 mg/dl (0.2-1.3); Blood Urea Nitrogen 22 mg/dl (9-20); Calcium 8.5 mg/dl (8.4-10.2); Carbon Dioxide 26 mmol/L (22.0-30.0); Creatinine Clearance Estimated 80 mL/min (50-200); Estimated Glomerular Filt Rate 83 ml/min (>60); GFR (African American) 101 ML/MIN (>60); Globulin 2.8 g/dL (1.3-3.2); Glucose 200 mg/dl (74-100); Total Protein,Serum 5.5 g/dl (6.3-8.2)
[2020-04-14 08:03] VITALS: BP 137/70; PULSE 60; RESP 18; O2SAT 98
[2020-04-14 08:38] LABS: POC Glucose,Bedside 190 (70-110)
--- NOTE | 2020-04-14 08:48 | HMH.ACPN2 ---
Internal Medicine - PN: Subj *Date: 04/14/20 *Time: 11:35 Interval history: 69-year-old male patient sitting up in chair at bedside, no respiratory distress noted, he reports his pain is under control. Ortho performed a closed reduction and cephalomedullary nailing, left femoral neck fracture yesterday, patient was tolerating well. Discussed with patient discharge to rehab facility, he is agreement to this. Exam Vital signs and Labs for Last 24 Hours: Temp Pulse Resp BP Pulse Ox 98.6 F 60 18 137/70 98 04/14/20 00:00 04/14/20 08:03 04/14/20 08:03 04/14/20 08:03 04/14/20 08:03 Laboratory Results - last 24 hr 04/13/20 09:00: WBC 7.5 D, RBC 3.80 L, Hgb 10.9 L, Hct 33.7 L, MCV 88.7, MCH 28.6, MCHC 32.2, RDW 14.6, Plt Count 78 L, MPV 11.9 H, Neut % (Auto) 67.9, Lymph % (Auto) 22.1, [place] % (Auto) 8.3, Eos % (Auto) 1.0, Baso % (Auto) 0.6, Neut # (Auto) 5.1, Lymph # (Auto) 1.7, [place] # (Auto) 0.6, Eos # (Auto) 0.1, Baso # (Auto) 0.0 04/13/20 09:00: Sodium 138, Potassium 3.8, Chloride 107, Carbon Dioxide 30, Anion Gap 4.8 L, BUN 18, Creatinine 1.00 D, Estimated Creat Clear 85, Estimated GFR 74, Est GFR ( Amer) 89 D, Glucose 93 D, Calcium 8.4 04/13/20 10:52: POC Glucose 102 04/13/20 11:58: POC Glucose 86 04/13/20 16:34: POC Glucose 96 04/13/20 21:52: POC Glucose 145 H 04/14/20 06:01: POC Glucose 190 H 04/14/20 06:24: WBC 11.7 H D, RBC 3.75 L, Hgb 10.9 L, Hct 33.7 L, MCV 89.9, MCH 29.0, MCHC 32.3, RDW 14.6, Plt Count 80 L, MPV 11.1 H, Neut % (Auto) 80.7 H, Lymph % (Auto) 12.0, [place] % (Auto) 6.9, Eos % (Auto) 0.1, Baso % (Auto) 0.2, Neut # (Auto) 9.4 H, Lymph # (Auto) 1.4, [place] # (Auto) 0.8, Eos # (Auto) 0.0, Baso # (Auto) 0.0 04/14/20 06:24: Sodium 137, Potassium 3.5, Chloride 108 H, Carbon Dioxide 26, Anion Gap 6.5, BUN 22 H, Creatinine 0.90, Estimated Creat Clear 80, Estimated GFR 83, Est GFR ( Amer) 101, Glucose 200 H D, Calcium 8.5, Total Bilirubin 1.2, AST 26, ALT 15, Alkaline Phosphatase 94, Total Protein 5.5 L, Albumin 2.7 L, Globulin 2.8, Albumin/Globulin Ratio 1.0 L 04/14/20 08:13: POC Glucose 190 H I & O for Last 24 hours: Intake & Output 04/11/20 04/12/20 04/13/20 04/14/20 23:59 23:59 23:59 23:59 Intake Total 2932 / 2932 1936 / 1936 2625 / 2625 120 / 120 Output Total 775 / 1175 400 / 400 2225 / 2225 Balance 2157 / 1757 1536 / 1536 400 / 400 120 / 120 Weight 178 lb 5.663 oz 196 lb 7 oz 196 lb 3.382 oz 183 lb 6 oz - Constitutional no acute distress, chronically ill appearing - *Routine HEENT Exam Head: Present: normocephalic Eye: Present: EOMI ENT: Present: mucous membranes moist - *Routine Neck Exam Present: trachea midline. Absent: tracheal deviation - *Routine Respiratory Exam Present: CTA bilaterally. Absent: accessory muscle use - *Routine Cardiovascular Exam Present: RRR - *Routine Abdominal Exam Present: soft, normoactive bowel sounds. Absent: tenderness, rebound - *Routine Extremities Exam Present: pulses intact, tenderness. Absent: cyanosis, clubbing - *Routine Skin Exam Present: warm, wounds. Absent: intact, erythema Comments: Elastaplast drsg to L Hip C/D/I - *Routine Neurological Exam Present: alert, oriented X3, hearing grossly intact. Absent: hemineglect - Routine Psychiatric Exam Present: normal affect, normal thought process, cooperative. Absent: auditory hallucinations, tactile hallucinations Assessment and Plan (1) Hip fracture, intertrochanteric Status: Acute Qualifiers: Encounter type: initial encounter Fracture type: closed Fracture alignment: displaced Laterality: left Qualified Code(s): S72.142A - Displaced intertrochanteric fracture of left femur, initial encounter for closed fracture Category: Medical Code(s): S72.143A - Displaced intertrochanteric fracture of unspecified femur, initial encounter for closed fracture (2) Hypothyroidism Status: Acute Qualifiers: Hypothyroidism type: acquired Qualified C
--- NOTE | 2020-04-14 09:14 | HMH.PTEV ---
Physical Therapy Evaluation Rehab PT IP Evaluation Start: 04/13/20 15:50 Freq: ONCE Status: Active Protocol: Document 04/14/20 09:08 JONATHAN (Rec: 04/14/20 09:14 JONATHAN [id number]) Subjective/History History History Initial IP PT evaluation for Anthony Valladares. Pt is a 69 y/o male who suffered mechanical fall at home. Pt reports per ER note he felt like his knee buckled and when he hit he had severe pain in hip. Pt had sx yesterday w/ IMN placement. Subjective Subjective Pt reports minimal pain in L hip - pt still groggy this a.m . Rehab PT IP Eval Objective Appearance Patient Behavior Cooperative,Sedated Patient Orientation Name,Birthday,Year,Situation Difficulty following instructions none Speech Pattern Delayed,Soft-Spoken Ambulation Patient Able to Ambulate Yes Ambulation Observation IP General Gait Pattern Observation Antalgic Gait,Decrease Weight Bear (L),Decrease Stride Lngth (R),Decrease Stride Lngth (L) Ambulation Distance (feet) 3 Ambulation Assistive Device Rolling Walker Ambulation Ability Moderate x 2 (50% assist) Balance Ability to Arise Able, uses arms to help Sitting Balance Steady, safe Standing Balance Unsteady Dynamic Sitting Balance Ability Fair Dynamic Standing Balance Ability Poor Transfers Bed Transfer Ability Minimal x 2 (25% assist) Chair Transfer Ability Minimal x 2 (25% assist) Sit to Stand Bed Transfer Ability Moderate x 2 (50% assist) Sit to Stand Chair Transfer Ability Moderate x 2 (50% assist) Rehab PT IP prob,goals,plan Problems Date of Evaluation: 04/14/20 PT IP Problems Bed Mobility,Transfers,Gait, Balance,Self care,Safety Rehab Potential Rehab Potential Fair Equipment Needs Assistive Devices Rolling / Wheeled Walker Plan PT Intervention Plan Bed Mobility,Transfers,Gait, Balance,Self care,Safety, Therapeutic Exercise PT Plan Frequency BID Duration LOS Discharge Goals Bed Transfer Ability Minimal x 2 (25% assist) Sit to Stand Chair Transfer Ability Moderate x 2 (50% assist) Ambulation Assistive Device Rolling Walker Ambulation Distance (feet) 10 Discharge Plan PT Discharge Plan Pt lives in apartment w/ 4 steps to enter and jay
--- NOTE | 2020-04-14 09:47 | SW/DCPLANNER ---
Addendum entered by [facility] 04/22/20 10:05: [facility] transported this patient to [facility] yesterday 04/21/20. Addendum entered by [facility] 04/21/20 12:33: Still waiting to hear back from EMS regarding transportation. COVID swab has been faxed. Kristina from [facility] has stated that everything is fine for this patient to be admitted to [facility] today pending transportation. Patients nurse (Ingrid Cisneros) is aware of situation. Addendum entered by [facility] 04/21/20 08:35: Currently waiting to find out if [facility] will transport patient today if medically stable for discharge. COVID swab is negative. Addendum entered by [facility] 04/20/20 14:53: COVID swab has been ordered for this patient. [facility] is only doing emergent transports. Kristina with [facility] is willing to accept this patient when he is ready for discharge. I have informed patient, Radha Murphy and Kristina. I will follow up with ambulance services and [facility] tomorrow. Addendum entered by [facility] 04/20/20 14:09: Kristina has stated they can accept this patient, they will need another COVID swab and she is speaking with Administration about admission today. I will follow up with patient and MD once I hear back from Kristina regarding admission. Addendum entered by [facility] 04/20/20 13:38: Peer to Peer for this patient has been denied again. I have informed patient of situation and explained only other option would be to go under Medicaid pending (payment would be monthly income all but $40). Patient stated this would not be the best situation. After a lengthy discussion with patient he is agreeable to placement under Medicaid pending understanding payment and must stay at least the first 30 days. Kristina with [facility] has stated they would accept this patient as Medicaid pending based on financial situation. I will inform Kristina that patient is agreeable and asked if patient needs a repeat COVID swab. Patient is medically stable for discharge. Addendum entered by [facility] 04/20/20 11:15: Information has been faxed by me to insurance and Radha has attempted to contact for peer to peer with no answer but VM left at this time. Addendum entered by [facility] 04/20/20 09:32: Peer to peer was completed Monday by Vondaalejandrinashavonne: Kristina with [facility] did contact me this morning to let me know that patient was denied again by [employer]. Kristina has provided me a phone number and fax number (once appeal is complete) for a third appeal: phone fax: . Radha will complete peer to peer today. I will follow up with her once completed. Addendum entered by [facility] 04/17/20 09:59: Peer to Peer phone #: Reference #: [id number] Addendum entered by [facility] 04/17/20 09:57: Kristina with [facility] has stated that she heard back from [facility] this morning regarding this patient and they have denied skilled care. Kristina did provide me with peer to peer information for MD. I did provide Curtshavonne with this information and she has stated she will complete this today. Kristina has stated that if peer to peer is completed today and approved by insurance they could accept Monday. Patient is not ready for discharge at this time. Addendum entered by [facility] 04/16/20 11:02: Kristina with [facility] is still waiting for insurance approval for this patient. COVID swab from 04/15/20 is NEGATIVE. Addendum entered by [facility] 04/15/20 13:35: I have followed up with Kristina from [facility]: still waiting to hear back from insurance at this time. Addendum entered by [facility] 04/15/20 09:18: I have spoke with Kristina from [facility]: insurance is still reviewing patient information at this time. I will continue to follow up with Kristina and this patient. Addendum entered by [facility] 04/14/20 13:17: Kristina with [facility] has started precert for this patient. Addendum entered by [facility] 04/14/20 12:09: Kristina with [facility] is reviewing patient information.
--- NOTE | 2020-04-14 10:24 | P.PN_ITS ---
[facility] Anesthesia Record Part II Discharge Time: 15:45 Destination: Medical Surgical Department PACU nurse assessment reviewed?: Yes Patient Condition:: Good Anesthesia Complications:: None Swallowing reflex intact?: Yes Cyanosis?: No Blood Pressure: 141/71 Pulse Rate: 79 Temperature: 97.3 F Mental Status: Alert & Oriented Pain level:: 0 Nausea and/or vomitting:: None Intake, IV Amount: 0
[2020-04-14 10:25] VITALS: BP 141/71; PULSE 79; TEMP 36.3
--- NOTE | 2020-04-14 10:34 | HMH.OTEV ---
OT Inpatient Evaluation Rehab OT IP Evaluation Start: 04/13/20 15:50 Freq: ONCE Status: Complete Protocol: Document 04/14/20 10:25 [facility] (Rec: 04/14/20 10:34 [facility] [id number]) Rehab OT IP Assessment Subjective History Pt oriented x 2 on arrival. Pt agreeable to engage in therapy evaluation. Pt was admitted via ED on 04/10/20 due to a fall with L hip pain. Pt has a past medical history with CVA, ME, Depression, DM type 2, Hyperlipidemia, and HTN. Pt required surgery on to left hip; closed reducation and cephalomedullary naling. Pt reports prior to being hosptialized he lived with his girlfriend. Pt claims he was independent with ADLs prior to his fall. However, he claims his girlfriend completed all IADL's. Pt did use a walker during ambulation . Subjective I will try to get up. Objective Patient Orientation Person,Birthday Upper Extremity Gross ROM WFL Bed Mobility bed mobility-scooting,bed mobility - supine/sit,bed mobility - rolling Assist Level Minimal x 1 (25% assist) Transfer Training Sit/Stand Transfer Assist Level Moderate x 2 (50% assist) Chair Transfer Ability Moderate x 2 (50% assist) Chair Transfer Technique Sit to/from Ambulatory Chair Transfer Assistive Devices Rolling Walker Rehab OT IP prob,goals,plan Problems Date of Evaluation: 04/14/20 OT IP Problems Bed Mobility,Transfers,Gait, Balance,Self care,Safety Rehab Potential Rehab Potential Good Equipment Needs Assistive Devices Rolling / Wheeled Walker Plan OT intervention Plan Bed Mobility,Transfers,Gait, Balance,Self care,Safety, Therapeutic Exercise OT Plan Frequency Daily Duration LOS Discharge Goals Bed Mobility Ability Standby Assistance Sit to Stand Chair Transfer Ability Minimal x 2 (25% assist) Chair Transfer Ability Minimal x 2 (25% assist) Chair Transfer Technique Sit to/from Ambulatory Chair Transfer Assistive Dev
[2020-04-14 11:40] VITALS: BP 144/65; PULSE 60; RESP 18; TEMP 36.8; O2SAT 95
[2020-04-14 11:40] LABS: POC Glucose,Bedside 184 (70-110)
--- NOTE | 2020-04-14 12:08 | P.PN_ITS ---
Subjective Date: 04/14/20 Time: 09:10 Principal diagnosis: S/p cephalomedullary nailing, left hip Interval history: Patient is status post cephalo-medullary nailing LEFT hip post op day # 1. He is sitting out on the chair and says he is doing well. He reports minimal pain and says it is well controlled with pain medication. No history of any fevers, chills or rigors. No history of any nausea, vomiting, chest pain or SOB. He is eating and drinking well. PN: Obj Ex Vital signs: Temp Pulse Resp BP Pulse Ox 98.2 F 60 18 144/65 H 95 04/14/20 11:40 04/14/20 11:40 04/14/20 11:40 04/14/20 11:40 04/14/20 11:40 Narrative: Laboratory Results - last 24 hr 04/13/20 16:34: POC Glucose 96 04/13/20 21:52: POC Glucose 145 H 04/14/20 06:01: POC Glucose 190 H 04/14/20 06:24: WBC 11.7 H D, RBC 3.75 L, Hgb 10.9 L, Hct 33.7 L, MCV 89.9, MCH 29.0, MCHC 32.3, RDW 14.6, Plt Count 80 L, MPV 11.1 H, Neut % (Auto) 80.7 H, Lymph % (Auto) 12.0, [place] % (Auto) 6.9, Eos % (Auto) 0.1, Baso % (Auto) 0.2, Neut # (Auto) 9.4 H, Lymph # (Auto) 1.4, [place] # (Auto) 0.8, Eos # (Auto) 0.0, Baso # (Auto) 0.0 04/14/20 06:24: Sodium 137, Potassium 3.5, Chloride 108 H, Carbon Dioxide 26, Anion Gap 6.5, BUN 22 H, Creatinine 0.90, Estimated Creat Clear 80, Estimated GFR 83, Est GFR ( Amer) 101, Glucose 200 H D, Calcium 8.5, Total Bilirubin 1.2, AST 26, ALT 15, Alkaline Phosphatase 94, Total Protein 5.5 L, Albumin 2.7 L, Globulin 2.8, Albumin/Globulin Ratio 1.0 L 04/14/20 08:13: POC Glucose 190 H 02/09/21 11:33: POC Glucose 184 H Exam: On examination of the LEFT lower extremity, the limb lengths are equal. The alignment is neutral. The dressings over the LEFT hip are clean, dry and intact. No soakage or strikethrough of the dressings noted. Attempted movements of the LEFT hip are painful. Distal neurovascular status is intact. Thigh and calf are soft and nontender. No clinical signs of DVT. - Urinary Catheter Management Poe Cath placed during this visit: no Progress Note: A&P (1) Hip fracture, intertrochanteric Status: Acute (2) Hypothyroidism Status: Acute (3) Neuropathy Status: Chronic (4) History of CVA (cerebrovascular accident) Status: Chronic (5) Type 2 diabetes mellitus, with long-term current use of insulin Status: Chronic (6) Smoker Status: Chronic (7) HTN (hypertension) Status: Chronic Assessment and Plan for All Diagnoses:: I have reviewed the findings and progress with patient. Patient started mobilization with physical therapy and continue mobilization weightbearing as tolerated on the left lower extremity. Continue PT/OT, pain management with as needed analgesics. DC Poe catheter and DC IV fluids. From an orthopedic standpoint, he can be discharged if medically appropriate. Patient is on long- term Eliquis and that should be sufficient for DVT prophylaxis. Follow-up in my office in 2 weeks? time with check x-ray. Please feel free to call our office at [phone] for any orthopaedic questions. Continue medical management as per Dr. Ndiaye?s team.
[2020-04-14 15:57] VITALS: BP 144/72; PULSE 64; RESP 20; TEMP 36.8; O2SAT 100
[2020-04-14 15:58] LABS: POC Glucose,Bedside 245 (70-110)
[2020-04-14 19:53] VITALS: BP 141/74; PULSE 61; RESP 23; TEMP 36.5; O2SAT 98
--- NOTE | 2020-04-14 19:53 | PC.NURSE ---
PATIENT A&O X3, LUNGS DIMINISHED, PULSES EQUAL. PATIENT UP TO CHAIR, TOLERATED WELL. PETERS REMOVED, TOLERATED WELL. PATIENT TOLERATED DIET WELL. NO COMPLAINTS OF PAIN THRU THIS RN SHIFT. THIS RN CONTINUED TO ASSESS PAIN LEVEL. SEVERAL TIMES PATIENT GRIMACED, THIS RN CONTINUED TO OFFER PAIN MEDICATION. PATIENT CONTINUED TO REFUSED. THIS RN EDUCATED PATIENT IN REGARDS TO CONTROLLING PAIN. PATIENT VERBALIZED AN UNDERSTANDING.
[2020-04-14 21:57] LABS: POC Glucose,Bedside 174 (70-110)
[2020-04-15 04:00] VITALS: BP 149/72; PULSE 58; RESP 20; TEMP 36.9; O2SAT 98
--- NOTE | 2020-04-15 05:16 | PC.NURSE ---
PT IS RESTING IN BED. TURNED AND REPOSITIONED FREQUENTLY T/O THE SHIFT. PT HAS BEEN INCONTINENT T/O THE SHIFT. PT STATES HE IS NOT HAVING ANY PAIN OR DISCOMFORT. ALERT AND ORIENTED X3. LUNG SOUNDS DIMINISHED. ABDOMEN SOFT/NON TENDER WITH ACTIVE BOWEL SOUNDS. BATH AND BED CHANGE THIS SHIFT. WILL CONTINUE TO MONITOR.
[2020-04-15 06:00] VITALS: BMI 25.4
[2020-04-15 06:03] LABS: POC Glucose,Bedside 125 (70-110)
[2020-04-15 08:00] VITALS: BP 158/82; PULSE 62; RESP 19; TEMP 36.6; O2SAT 100
--- NOTE | 2020-04-15 08:22 | XR_ITS ---
PROCEDURE: XR CHEST PORTABLE CLINICAL HISTORY: cough COMPARISON: CR CXR1 CHEST-PORTABLE from 03/07/2014 CR CXR2 CHEST-AP VIEW ONLY from 01/26/2015 CR XR CHEST PORTABLE from 04/10/2020 FINDINGS: The cardiomediastinal silhouette and pulmonary vascularity are within normal limits. There is increased density lying along the mid and inferior aspect of both lungs centrally and medially with normal density laterally. This may very well be due to artifact from skin fold. Cannot exclude underlying airspace disease. Upright PA and lateral chest suggested when patient can tolerate. Degenerative changes of the shoulders. IMPRESSION: Increased density in both mid lower lung zone centrally possibly due to artifact versus underlying pneumonia. Follow-up suggested Dictated by: Jordi Fairchild MD 04/15/2020 11:30 Jordi Fairchild MD in [facility] 04/15/2020 11:30
[2020-04-15 08:39] LABS: Basophils % 0.3 % (0.1-2.0); Eosinophils # 0.2 K/mm3 (0.0-0.4); Eosinophils % 2.4 % (0.1-12.0); Hematocrit 33.8 % (42.0-52.0); Hemoglobin 10.9 g/dL (14.1-18.0); Lymphocytes # 1.8 K/mm3 (0.7-4.5); Lymphocytes % 19.7 % (10-50); Mean Corpuscular HGB Conc 32.2 g/dL (31.8-35.4); Mean Corpuscular Hemoglobin 28.4 pg (27.0-31.2); Mean Platelet Volume 11.3 fl (7.4-10.4); Monocytes # 0.5 K/mm3 (0.1-1.0); Monocytes % 5.8 % (1.7-9.3); Neutrophils # 6.4 K/mm3 (1.8-7.8); Neutrophils % 71.7 % (37.0-80.0); Platelet Count 103 K/mm3 (142-424); Red Blood Count 3.84 M/mm3 (4.60-6.20); Red Cell Distribution Width 14.8 % (11.5-17.5)
[2020-04-15 09:00] LABS: Chloride 109 mmol/L (98-107); Sodium 139 mmol/L (136-145)
[2020-04-15 09:01] LABS: Potassium 3.4 mmoL/L (3.5-5.1)
[2020-04-15 09:03] LABS: Blood Urea Nitrogen 22 mg/dl (9-20); Creatinine Clearance Estimated 81 mL/min (50-200); Estimated Glomerular Filt Rate 83 ml/min (>60); GFR (African American) 101 ML/MIN (>60)
[2020-04-15 09:04] LABS: Anion Gap 5.4 mEq/L (5-15); Calcium 8.8 mg/dl (8.4-10.2); Carbon Dioxide 28 mmol/L (22.0-30.0); Glucose 171 mg/dl (74-100)
--- NOTE | 2020-04-15 09:47 | HMH.ACPN2 ---
Internal Medicine - PN: Subj *Date: 04/15/20 *Time: 14:56 Interval history: 69-year-old male patient sitting up in bed no respiratory distress noted, he reports left hip pain is under control. Oxygenation 98% on 3.5 L nasal cannula, he does have a loose cough denies any shortness of breath. Will get chest x-ray this morning. Physical therapy is normal in room assisting patient to chair. Discussed regarding discharge to rehab facility versus home and benefits of rehab facility. Exam Vital signs and Labs for Last 24 Hours: Temp Pulse Resp BP Pulse Ox 97.8 F 62 19 158/82 H 100 04/15/20 08:00 04/15/20 08:00 04/15/20 08:00 04/15/20 08:00 04/15/20 08:00 Laboratory Results - last 24 hr 04/14/20 15:29: POC Glucose 245 H 04/14/20 21:36: POC Glucose 174 H 04/15/20 05:42: POC Glucose 125 H 04/15/20 08:25: WBC 9.0, RBC 3.84 L, Hgb 10.9 L, Hct 33.8 L, MCV 88.0, MCH 28.4, MCHC 32.2, RDW 14.8, Plt Count 103 L D, MPV 11.3 H, Neut % (Auto) 71.7, Lymph % (Auto) 19.7, [place] % (Auto) 5.8, Eos % (Auto) 2.4, Baso % (Auto) 0.3, Neut # (Auto) 6.4, Lymph # (Auto) 1.8, [place] # (Auto) 0.5, Eos # (Auto) 0.2, Baso # (Auto) 0.0 04/15/20 08:25: Sodium 139, Potassium 3.4 L, Chloride 109 H, Carbon Dioxide 28, Anion Gap 5.4, BUN 22 H, Creatinine 0.90, Estimated Creat Clear 81, Estimated GFR 83, Est GFR ( Amer) 101, Glucose 171 H, Calcium 8.8 04/15/20 11:42: POC Glucose 172 H I & O for Last 24 hours: Intake & Output 04/12/20 04/13/20 04/14/20 04/15/20 23:59 23:59 23:59 23:59 Intake Total 1936 / 1936 2625 / 2625 822 / 822 695 / 695 Output Total 400 / 400 2225 / 2225 1200 / 1200 200 / 200 Balance 1536 / 1536 400 / 400 -378 / -378 495 / 495 Weight 196 lb 7 oz 196 lb 3.382 oz 183 lb 6 oz 187 lb 7 oz Microbiology Reports for the Last 24 Hours: Microbiology 04/15/20 11:02 Nasopharyngeal Coronavirus COVID-19 PCR - Final - Constitutional no acute distress, chronically ill appearing - *Routine HEENT Exam Head: Present: normocephalic Eye: Present: EOMI ENT: Present: mucous membranes moist - *Routine Neck Exam Present: trachea midline. Absent: tracheal deviation - *Routine Respiratory Exam Present: decreased breath sounds. Absent: accessory muscle use - *Routine Cardiovascular Exam Present: RRR. Absent: tachycardia - *Routine Abdominal Exam Present: soft, normoactive bowel sounds. Absent: tenderness, rigid - *Routine Extremities Exam Present: pulses intact, tenderness. Absent: cyanosis, calf tenderness - *Routine Skin Exam Present: dry, warm, wounds. Absent: intact, cyanosis, jaundice Comments: Elastaplast drsg L Hip C/D/I - *Routine Neurological Exam Present: alert, oriented X3, normal reflexes. Absent: CN II-XII intact, altered mental status - Routine Psychiatric Exam Present: normal affect, normal thought process. Absent: auditory hallucinations, visual hallucinations Assessment and Plan (1) Hip fracture, intertrochanteric Status: Acute Qualifiers: Encounter type: initial encounter Fracture type: closed Fracture alignment: displaced Laterality: left Qualified Code(s): S72.142A - Displaced intertrochanteric fracture of left femur, initial encounter for closed fracture Category: Medical Code(s): S72.143A - Displaced intertrochanteric fracture of unspecified femur, initial encounter for closed fracture (2) Hypothyroidism Status: Acute Qualifiers: Hypothyroidism type: acquired Qualified Code(s): E03.9 - Hypothyroidism, unspecified Category: Medical Code(s): E03.9 - Hypothyroidism, unspecified (3) Neuropathy Status: Chronic Category: Medical Code(s): G62.9 - Polyneuropathy, unspecified (4) History of CVA (cerebrovascular accident) Status: Chronic Category: Medical Code(s): Z86.73 - Personal history of transient ischemic attack (TIA), and cerebral infarction without residual deficits (5) Type 2 diabetes mellitus, with long-term current use o
--- NOTE | 2020-04-15 11:49 | HMH.ORTHPN ---
Subjective Date: 04/15/20 Time: 10:45 Principal diagnosis: S/p cephalomedullary nailing, left hip Interval history: Patient is status post cephalo-medullary nailing LEFT hip post op day # 2. He is sitting out on the chair and says he is doing well. He reports minimal pain and says it is well controlled with as needed pain medication. No history of any fevers, chills or rigors. No history of any nausea, vomiting, chest pain or SOB. He is eating and drinking well. PN: Obj Ex Vital signs: Temp Pulse Resp BP Pulse Ox 97.8 F 62 19 158/82 H 100 04/15/20 08:00 04/15/20 08:00 04/15/20 08:00 04/15/20 08:00 04/15/20 08:00 Narrative: Laboratory Results - last 24 hr 04/14/20 15:29: POC Glucose 245 H 04/14/20 21:36: POC Glucose 174 H 04/15/20 05:42: POC Glucose 125 H 04/15/20 08:25: WBC 9.0, RBC 3.84 L, Hgb 10.9 L, Hct 33.8 L, MCV 88.0, MCH 28.4, MCHC 32.2, RDW 14.8, Plt Count 103 L D, MPV 11.3 H, Neut % (Auto) 71.7, Lymph % (Auto) 19.7, [place] % (Auto) 5.8, Eos % (Auto) 2.4, Baso % (Auto) 0.3, Neut # (Auto) 6.4, Lymph # (Auto) 1.8, [place] # (Auto) 0.5, Eos # (Auto) 0.2, Baso # (Auto) 0.0 04/15/20 08:25: Sodium 139, Potassium 3.4 L, Chloride 109 H, Carbon Dioxide 28, Anion Gap 5.4, BUN 22 H, Creatinine 0.90, Estimated Creat Clear 81, Estimated GFR 83, Est GFR ( Amer) 101, Glucose 171 H, Calcium 8.8 Exam: General appearance: alert, active, awake, no acute distress Cardiovascular: regular rate & rhythm, normal peripheral pulses Respiratory: [no respiratory distress noted, speaks in full sentences] ABD: soft and non tender Neuro: alert, awake, [oriented x 3] On examination of the LEFT lower extremity, the limb lengths are equal. The alignment is neutral. The dressings over the LEFT hip are clean, dry and intact. No soakage or strike-through of the dressings noted. Attempted movements of the LEFT hip are painful. Distal neurovascular status is intact. Thigh and calf are soft and nontender. No clinical signs of DVT noted. - Urinary Catheter Management Poe Cath placed during this visit: no Progress Note: A&P (1) Hip fracture, intertrochanteric Status: Acute (2) Hypothyroidism Status: Acute (3) Neuropathy Status: Chronic (4) History of CVA (cerebrovascular accident) Status: Chronic (5) Type 2 diabetes mellitus, with long-term current use of insulin Status: Chronic (6) Smoker Status: Chronic (7) HTN (hypertension) Status: Chronic Assessment and Plan for All Diagnoses:: Reviewed the findings and progress with patient. Patient is doing well and mobilizing with physical therapy. Continue PT/OT, pain management with as needed analgesics. From an orthopedic standpoint, he can be discharged if medically appropriate. Patient is on long-term Eliquis and that should be sufficient for DVT prophylaxis. Follow-up in my office in 2 weeks? time with check x-ray. Please feel free to call our office at [phone] for any orthopaedic questions. Continue medical management as per Dr. Ndiaye?s team.
[2020-04-15 12:02] LABS: POC Glucose,Bedside 172 (70-110)
--- NOTE | 2020-04-15 13:26 | XR_ITS ---
PROCEDURE: XR CHEST 2V CLINICAL HISTORY: Poss PNA Possible pneumonia COMPARISON: CR CXR2 CHEST-AP VIEW ONLY from 01/26/2015 CR XR CHEST PORTABLE from 04/10/2020 CR XR CHEST PORTABLE from 04/15/2020 FINDINGS: The cardiomediastinal silhouette and pulmonary vascularity are within normal limits. Previous exam suggested infiltrate in the lower lobes. Upright PA and lateral views are obtained. There is patchy density once again noted in the right mid and lower lung suspicious for pneumonia. The left lung is clear. Degenerative changes thoracic spine. IMPRESSION: Right lower lobe pneumonia Dictated by: Jordi Fairchild MD 04/15/2020 14:54 Jordi Fairchild MD in [facility] 04/15/2020 14:54
--- NOTE | 2020-04-15 14:07 | DIET.NUTRFU ---
Addendum entered by Winter Becerril 04/20/20 10:22: PO intakes 75%, BG avg. 160, weight up 4# past 48h. No c/o nutritional concerns, pt states he loves the food here. Continuing to monitor. Addendum entered by Winter Becerril 04/17/20 13:57: Improvement PO intakes, 75%. BG avg. 190, weight up 10# past 48h. No changes to diet, continuing to monitor. Original Note: PO intakes 50% + daily protein shake. BG avg. 175. Pt may have additional diabetic supplements by request/RN offer. Continuing to monitor.
[2020-04-15 15:43] VITALS: BP 147/77; PULSE 56; RESP 16; TEMP 36.9; O2SAT 100
[2020-04-15 16:18] LABS: POC Glucose,Bedside 212 (70-110)
--- NOTE | 2020-04-15 18:11 | PC.NURSE ---
New abt started r/t pna. Have encouraged use of incentive spirometer. RR even and unlabored. 3 L NC. VSS. IV in RAC. NAD. S1,S2. Lungs cta/diminished. Abd soft and non tender.CB in reach. Incont of B&B, with briefs worn and checked/changed per nsg. Has been up to the chair this shift. Alert and oriented x 4.
[2020-04-15 20:00] VITALS: BP 133/66; PULSE 62; RESP 17; TEMP 36.9; O2SAT 100
[2020-04-15 21:08] LABS: POC Glucose,Bedside 242 (70-110)
[2020-04-16] VITALS (7 sets, daily range): BP systolic 114–151; BP diastolic 63–78; PULSE 64–78; RESP 15–18; TEMP 36.7–36.9; O2SAT 85–99; BMI 26.0
--- NOTE | 2020-04-16 05:01 | PC.NURSE ---
Pt is A&Ox4. Pt used IS hourly while awake this shift. IS @ best 2250cc's. Dry, nonproductive cough noted. Pt has not c/o pain at all this shift. Pt has been incontinent of urine this shift. Lt hip drsng remains CDI. No other acute changes or complaints at this time.
[2020-04-16 05:03] LABS: Basophils % 0.3 % (0.1-2.0); Eosinophils # 0.2 K/mm3 (0.0-0.4); Eosinophils % 2.6 % (0.1-12.0); Hematocrit 31.3 % (42.0-52.0); Hemoglobin 10.2 g/dL (14.1-18.0); Lymphocytes # 2.5 K/mm3 (0.7-4.5); Lymphocytes % 30.2 % (10-50); Mean Corpuscular HGB Conc 32.5 g/dL (31.8-35.4); Mean Corpuscular Hemoglobin 29.1 pg (27.0-31.2); Mean Corpuscular Volume 89.5 fl (80-94); Mean Platelet Volume 11.7 fl (7.4-10.4); Monocytes # 0.7 K/mm3 (0.1-1.0); Neutrophils # 4.8 K/mm3 (1.8-7.8); Neutrophils % 58.8 % (37.0-80.0); Platelet Count 101 K/mm3 (142-424); Red Blood Count 3.49 M/mm3 (4.60-6.20); Red Cell Distribution Width 14.8 % (11.5-17.5); White Blood Count 8.2 K/mm3 (4.8-10.8)
[2020-04-16 05:17] LABS: Chloride 106 mmol/L (98-107); Potassium 3.3 mmoL/L (3.5-5.1); Sodium 139 mmol/L (136-145)
[2020-04-16 05:20] LABS: Anion Gap 5.3 mEq/L (5-15); Blood Urea Nitrogen 23 mg/dl (9-20); Calcium 8.3 mg/dl (8.4-10.2); Carbon Dioxide 31 mmol/L (22.0-30.0); Creatinine Clearance Estimated 84 mL/min (50-200); Estimated Glomerular Filt Rate 83 ml/min (>60); GFR (African American) 101 ML/MIN (>60); Glucose 80 mg/dl (74-100)
[2020-04-16 06:40] LABS: POC Glucose,Bedside 75 (70-110)
--- NOTE | 2020-04-16 08:41 | HMH.ACPN2 ---
Internal Medicine - PN: Subj *Date: 04/16/20 *Time: 08:41 Interval history: pt feels better this am - still with cough - has pneumonia on cxr Exam Vital signs and Labs for Last 24 Hours: Temp Pulse Resp BP Pulse Ox 98.5 F 66 18 151/78 H 99 04/16/20 08:00 04/16/20 08:00 04/16/20 08:00 04/16/20 08:00 04/16/20 08:00 Laboratory Results - last 24 hr 04/15/20 08:25: WBC 9.0, RBC 3.84 L, Hgb 10.9 L, Hct 33.8 L, MCV 88.0, MCH 28.4, MCHC 32.2, RDW 14.8, Plt Count 103 L D, MPV 11.3 H, Neut % (Auto) 71.7, Lymph % (Auto) 19.7, [place] % (Auto) 5.8, Eos % (Auto) 2.4, Baso % (Auto) 0.3, Neut # (Auto) 6.4, Lymph # (Auto) 1.8, [place] # (Auto) 0.5, Eos # (Auto) 0.2, Baso # (Auto) 0.0 04/15/20 08:25: Sodium 139, Potassium 3.4 L, Chloride 109 H, Carbon Dioxide 28, Anion Gap 5.4, BUN 22 H, Creatinine 0.90, Estimated Creat Clear 81, Estimated GFR 83, Est GFR ( Amer) 101, Glucose 171 H, Calcium 8.8 04/15/20 11:42: POC Glucose 172 H 04/15/20 15:58: POC Glucose 212 H 04/15/20 20:04: POC Glucose 242 H 04/16/20 04:22: WBC 8.2, RBC 3.49 L, Hgb 10.2 L, Hct 31.3 L, MCV 89.5, MCH 29.1, MCHC 32.5, RDW 14.8, Plt Count 101 L, MPV 11.7 H, Neut % (Auto) 58.8, Lymph % (Auto) 30.2, [place] % (Auto) 8.0, Eos % (Auto) 2.6, Baso % (Auto) 0.3, Neut # (Auto) 4.8, Lymph # (Auto) 2.5, [place] # (Auto) 0.7, Eos # (Auto) 0.2, Baso # (Auto) 0.0 04/16/20 04:22: Sodium 139, Potassium 3.3 L, Chloride 106, Carbon Dioxide 31 H, Anion Gap 5.3, BUN 23 H, Creatinine 0.90, Estimated Creat Clear 84, Estimated GFR 83, Est GFR ( Amer) 101, Glucose 80 D, Calcium 8.3 L 04/16/20 06:24: POC Glucose 75 I & O for Last 24 hours: Intake & Output 04/13/20 04/14/20 04/15/20 04/16/20 11:59 11:59 11:59 11:59 Intake Total 2051 / 2051 1860 / 1860 1397 / 1397 1310 / 1310 Output Total 1200 / 1200 1025 / 1025 1400 / 1400 300 / 300 Balance 851 / 851 835 / 835 -3 / -3 1010 / 1010 Weight 183 lb 6 oz 187 lb 7 oz 192 lb 2 oz Microbiology Reports for the Last 24 Hours: Microbiology 04/15/20 11:02 Nasopharyngeal Coronavirus COVID-19 PCR - Final - Constitutional no acute distress - *Routine HEENT Exam Head: Present: normocephalic Eye: Present: EOMI, PERRL ENT: Present: mucous membranes dry - *Routine Neck Exam Present: supple. Absent: JVD - *Routine Respiratory Exam Present: decreased breath sounds, prolonged expiratory phase, rhonchi - *Routine Cardiovascular Exam Present: RRR, murmur - *Routine Abdominal Exam Present: soft - *Routine Extremities Exam Absent: calf tenderness - *Routine Skin Exam Present: intact - *Routine Neurological Exam Present: alert, oriented X3, CN II-XII intact - Routine Psychiatric Exam Present: normal affect Assessment and Plan (1) Hip fracture, intertrochanteric Status: Acute Qualifiers: Encounter type: initial encounter Fracture type: closed Fracture alignment: displaced Laterality: left Qualified Code(s): S72.142A - Displaced intertrochanteric fracture of left femur, initial encounter for closed fracture Category: Medical Code(s): S72.143A - Displaced intertrochanteric fracture of unspecified femur, initial encounter for closed fracture (2) Hypothyroidism Status: Acute Qualifiers: Hypothyroidism type: acquired Qualified Code(s): E03.9 - Hypothyroidism, unspecified Category: Medical Code(s): E03.9 - Hypothyroidism, unspecified (3) Neuropathy Status: Chronic Category: Medical Code(s): G62.9 - Polyneuropathy, unspecified (4) History of CVA (cerebrovascular accident) Status: Chronic Category: Medical Code(s): Z86.73 - Personal history of transient ischemic attack (TIA), and cerebral infarction without residual deficits (5) Type 2 diabetes mellitus, with long-term current use of insulin Status: Chronic Qualifiers: Diabetes mellitus complication status: with other specified complication Qualified Code(s): E11.69 - Type 2 diabetes mellitus with other spe
--- NOTE | 2020-04-16 10:47 | HMH.SLDYSPHA ---
Speech & Language Evaluation Speech/Language Dysphagia Evaluation Start: 04/16/20 10:08 Freq: ONCE Status: Active Protocol: Document 04/16/20 10:08 [email or web address] (Rec: 04/16/20 10:47 KERLINE [id number]) Dysphagia Assess/Goals/Plan Assessment Date of Evaluation: 04/16/20 Evaluation Type Initial Certification Assessment/Problems Dysphagia Does Patient Qualify for Service No Qualify/Failure Comment Diet remains appropriate at this time. Recommendations PHYSICIAN CERTIFICATION: The specified therapy services are required, authorized, and reviewed every 30 days. Dysphagia Swallow Precautions/Strategies Sitting Upright (90 deg) Plan Pt/Guardian verbally ack understanding Yes of dx/prognosis/goals G -code Required No General Information General Current Food Consistancy Regular,Thin Liquids Dentition Good Dentition Oxygen Status Room Air Facial Symmetry Symmetrical Patient Orientation Person,Place,Time Ability to Follow Directions Excellent Communication Ability No Impairment Dysphagia:Food Presentation Evaluation Food Type Pureed,Mechanical Soft,Regular ,Liquid,Pudding Dysphagia Evaluation Summary Mr. Hawk was given the following consistencies: thins via straw and open cup, pudding, pureed, mechanical soft, and regular. No signs of dysphagia were noted during evaluation. At this time, he is on the least restrictive diet and ST is not warranted. Stroke Dysphagia Assessment PHYSICIAN CERTIFICATION: I certify the specified therapy services for Anthony Hawk JR are required, authorized, and reviewed every 30 days.
[2020-04-16 11:38] LABS: POC Glucose,Bedside 172 (70-110)
--- NOTE | 2020-04-16 14:58 | PC.NURSE ---
PT IS SITTING UP IN THE CHAIR. ALERT AND ORIENTED X4. THIS MORNING PT WAS HAVING SOME PAIN . RECEIVED PAIN PO PAIN MEDICATION WHICH PT STATED HELPED HIS PAIN TREMENDOUSLY. DRESSING NOTED TO THE LT HIP. PT STATES HE IS MORE COMFORTABLE UP IN THE CHAIR THAN THE BED. REQUIRES MAX ASSIST TO TRANSFER AND REPOSITION. VERIFYING SPECIALIST EQUAL. PULSES EQUAL. LUNG SOUNDS CLEAR. ABDOMEN SOFT/NON TENDER WITH ACTIVE BOWEL SOUNDS. PT UNDERSTANDS THAT HE WILL NEED REHAB WHEN HE IS DISCHARGED FROM THE HOSPITAL. BATH AND LINEN CHANGE THIS SHIFT. PT HAS USED THE URINAL SEVERAL TIMES THIS SHIFT BUT WILL STILL HAVE A FEW OCCASIONAL INCONTINENT EPISODES. VSS. O2 SATURATION 92-96% ON ROOM AIR. WILL CONTINUE TO MONITOR.
[2020-04-16 16:27] LABS: POC Glucose,Bedside 269 (70-110)
[2020-04-16 20:49] LABS: POC Glucose,Bedside 208 (70-110)
[2020-04-17] VITALS (7 sets, daily range): BP systolic 122–142; BP diastolic 63–70; PULSE 60–69; RESP 16–20; TEMP 36.6–36.9; O2SAT 91–95; BMI 26.9
--- NOTE | 2020-04-17 05:06 | HMH.ORTHPN ---
Subjective Date: 04/16/20 Time: 17:30 Principal diagnosis: S/p cephalomedullary nailing, left hip Interval history: Patient is a 69-year-old male, status post cephalo-medullary nailing LEFT femur, post op day 3. He is sitting out in a chair and appears comfortable; says he is doing well and is eating and drinking well. He says the pain is well controlled with medication. No history of any fevers, chills or rigors. No history of any nausea, vomiting, chest pain or SOB. PN: Obj Ex Vital signs: Temp Pulse Resp BP Pulse Ox 98.3 F 66 16 132/70 91 L 04/17/20 04:00 04/17/20 04:00 04/17/20 04:00 04/17/20 04:00 04/17/20 04:00 Narrative: Laboratory Results - last 24 hr 04/16/20 04:22: Sodium 139, Potassium 3.3 L, Chloride 106, Carbon Dioxide 31 H, Anion Gap 5.3, BUN 23 H, Creatinine 0.90, Estimated Creat Clear 84, Estimated GFR 83, Est GFR ( Amer) 101, Glucose 80 D, Calcium 8.3 L 04/16/20 06:24: POC Glucose 75 04/16/20 11:20: POC Glucose 172 H 04/16/20 16:20: POC Glucose 269 H Exam: General appearance: alert, active, awake, no acute distress Cardiovascular: regular rate & rhythm, normal peripheral pulses Respiratory: No respiratory distress noted, speaks in full sentences ABD: soft and non tender Neuro: alert, awake, oriented x 3 On examination of the LEFT lower extremity, the limb lengths are equal. The alignment is neutral. The dressings over the LEFT hip are clean, dry and intact. I have changed the dressings today and all 3 incisions appear healthy. No erythema, discharge or induration noted. Patient has Dermabond Prineo dressing in place. Movements of the LEFT hip are painful. Distal neurovascular status is intact. Thigh and calf are soft and nontender. No clinical signs of DVT noted. - Urinary Catheter Management Poe Cath placed during this visit: no Progress Note: A&P (1) Hip fracture, intertrochanteric Status: Acute (2) Hypothyroidism Status: Acute (3) Neuropathy Status: Chronic (4) History of CVA (cerebrovascular accident) Status: Chronic (5) Type 2 diabetes mellitus, with long-term current use of insulin Status: Chronic (6) Smoker Status: Chronic (7) HTN (hypertension) Status: Chronic (8) Anemia Status: Acute (9) Thrombocytopenia Status: Acute (10) Hypokalemia Status: Acute (11) HCAP (healthcare-associated pneumonia) Status: Acute Assessment and Plan for All Diagnoses:: Reviewed the findings and progress with patient. Patient is doing well and mobilizing slowly with physical therapy. Continue PT/OT, pain management with as needed analgesics. From an orthopedic standpoint, he can be discharged if medically appropriate. Patient is on long-term Eliquis and that should be sufficient for DVT prophylaxis. Follow-up in my office in 2 weeks? time with check x-ray. Continue medical management as per Dr. Ndiaye?s team.
--- NOTE | 2020-04-17 05:21 | PC.NURSE ---
pt has rested well throughout shift, pt remains alert and oriented, lungs clear to auscultate with unproductive cough noted, heart regular, bs x 4 quads remain hypoactive at this time, pt remains two assist with turning in bed, pt states he is in quite a bit of pain with turning, medicated x 2 this shift for left hip pain, incision to left hip remains free of sign or symptom of infection pt currently resting no distress noted
[2020-04-17 06:10] LABS: POC Glucose,Bedside 70 (70-110)
[2020-04-17 07:40] LABS: Basophils # 0.1 K/mm3 (0-0.2); Basophils % 0.6 % (0.1-2.0); Eosinophils # 0.2 K/mm3 (0.0-0.4); Eosinophils % 2.4 % (0.1-12.0); Hematocrit 32.6 % (42.0-52.0); Hemoglobin 10.6 g/dL (14.1-18.0); Lymphocytes # 2.3 K/mm3 (0.7-4.5); Lymphocytes % 29.9 % (10-50); Mean Corpuscular HGB Conc 32.4 g/dL (31.8-35.4); Mean Corpuscular Hemoglobin 28.8 pg (27.0-31.2); Mean Platelet Volume 11.1 fl (7.4-10.4); Monocytes # 0.6 K/mm3 (0.1-1.0); Monocytes % 7.4 % (1.7-9.3); Neutrophils # 4.7 K/mm3 (1.8-7.8); Neutrophils % 59.6 % (37.0-80.0); Platelet Count 115 K/mm3 (142-424); Red Blood Count 3.66 M/mm3 (4.60-6.20); Red Cell Distribution Width 14.7 % (11.5-17.5); White Blood Count 7.8 K/mm3 (4.8-10.8)
[2020-04-17 07:41] LABS: Chloride 106 mmol/L (98-107)
[2020-04-17 07:42] LABS: Potassium 3.8 mmoL/L (3.5-5.1); Sodium 137 mmol/L (136-145)
[2020-04-17 07:45] LABS: Anion Gap 4.8 mEq/L (5-15); Blood Urea Nitrogen 25 mg/dl (9-20); Calcium 8.4 mg/dl (8.4-10.2); Carbon Dioxide 30 mmol/L (22.0-30.0); Creatinine Clearance Estimated 72 mL/min (50-200); Estimated Glomerular Filt Rate 60 ml/min (>60); GFR (African American) 72 ML/MIN (>60); Glucose 67 mg/dl (74-100)
--- NOTE | 2020-04-17 09:36 | HMH.ACPN2 ---
Internal Medicine - PN: Subj *Date: 04/17/20 *Time: 08:00 Interval history: pt laying in bed states he is doing well. per staff he is a 2 person turn. Exam Vital signs and Labs for Last 24 Hours: Temp Pulse Resp BP Pulse Ox 98.4 F 67 20 142/65 H 92 L 04/17/20 07:35 04/17/20 07:35 04/17/20 07:35 04/17/20 07:35 04/17/20 07:35 Laboratory Results - last 24 hr 04/16/20 11:20: POC Glucose 172 H 04/16/20 16:20: POC Glucose 269 H 04/16/20 20:01: POC Glucose 208 H 04/17/20 05:52: POC Glucose 70 04/17/20 07:00: WBC 7.8, RBC 3.66 L, Hgb 10.6 L, Hct 32.6 L, MCV 89.0, MCH 28.8, MCHC 32.4, RDW 14.7, Plt Count 115 L, MPV 11.1 H, Neut % (Auto) 59.6, Lymph % (Auto) 29.9, [place] % (Auto) 7.4, Eos % (Auto) 2.4, Baso % (Auto) 0.6, Neut # (Auto) 4.7, Lymph # (Auto) 2.3, [place] # (Auto) 0.6, Eos # (Auto) 0.2, Baso # (Auto) 0.1 04/17/20 07:00: Sodium 137, Potassium 3.8, Chloride 106, Carbon Dioxide 30, Anion Gap 4.8 L, BUN 25 H, Creatinine 1.20 D, Estimated Creat Clear 72, Estimated GFR 60, Est GFR ( Amer) 72 D, Glucose 67 L, Calcium 8.4 I & O for Last 24 hours: Intake & Output 04/14/20 04/15/20 04/16/20 04/17/20 11:59 11:59 11:59 11:59 Intake Total 1860 / 1860 1397 / 1397 1310 / 1310 3440 / 3440 Output Total 1025 / 1025 1400 / 1400 300 / 300 250 / 250 Balance 835 / 835 -3 / -3 1010 / 1010 3190 / 3190 Weight 183 lb 6 oz 187 lb 7 oz 192 lb 2 oz 198 lb 9 oz Microbiology Reports for the Last 24 Hours: Microbiology 04/15/20 13:30 Sputum - Expectorated Sputum Gram Stain - Final 04/15/20 13:30 Sputum - Expectorated Sputum Sputum Culture - Final - Constitutional no acute distress - *Routine HEENT Exam Head: Present: normocephalic Eye: Present: PERRL ENT: Present: mucous membranes moist - *Routine Neck Exam Present: supple. Absent: lymphadenopathy - *Routine Respiratory Exam Present: rhonchi - *Routine Cardiovascular Exam Present: RRR - *Routine Abdominal Exam Present: soft, normoactive bowel sounds. Absent: tenderness - *Routine Extremities Exam Present: normal capillary refill - *Routine Skin Exam Present: warm. Absent: rash Comments: incision to hip c/d/i - *Routine Neurological Exam Present: alert, oriented X3 - Routine Psychiatric Exam Present: normal affect Assessment and Plan (1) Hip fracture, intertrochanteric Status: Acute Qualifiers: Encounter type: initial encounter Fracture type: closed Fracture alignment: displaced Laterality: left Qualified Code(s): S72.142A - Displaced intertrochanteric fracture of left femur, initial encounter for closed fracture Category: Medical Code(s): S72.143A - Displaced intertrochanteric fracture of unspecified femur, initial encounter for closed fracture (2) Hypothyroidism Status: Acute Qualifiers: Hypothyroidism type: acquired Qualified Code(s): E03.9 - Hypothyroidism, unspecified Category: Medical Code(s): E03.9 - Hypothyroidism, unspecified (3) Neuropathy Status: Chronic Category: Medical Code(s): G62.9 - Polyneuropathy, unspecified (4) History of CVA (cerebrovascular accident) Status: Chronic Category: Medical Code(s): Z86.73 - Personal history of transient ischemic attack (TIA), and cerebral infarction without residual deficits (5) Type 2 diabetes mellitus, with long-term current use of insulin Status: Chronic Qualifiers: Diabetes mellitus complication status: with other specified complication Qualified Code(s): E11.69 - Type 2 diabetes mellitus with other specified complication; Z79.4 - terminal gauger supervisor (current) use of insulin Category: Medical Code(s): E11.9 - Type 2 diabetes mellitus without complications; Z79.4 - terminal gauger supervisor (current) use of insulin (6) Smoker Status: Chronic Category: Social Hx Code(s): F17.200 - Nicotine dependence, unspecified, uncomplicated (7) HTN (hypertension) Status: Chronic Qualifiers: Hypertension type: essential hyper
[2020-04-17 11:28] LABS: POC Glucose,Bedside 67 (70-110)
--- NOTE | 2020-04-17 13:49 | HMH.ORTHPN ---
Subjective Date: 04/17/20 Time: 11:00 Principal diagnosis: S/p cephalomedullary nailing, left hip Interval history: Patient is status post cephalo-medullary nailing LEFT femur, post op day 4. He is sitting out in a chair and appears comfortable; says he is doing well and is eating and drinking well. He says the pain is well controlled with medication. No history of any fevers, chills or rigors. He is being treated for pneumonia. He reports no orthopedic complaints. PN: Obj Ex Vital signs: Temp Pulse Resp BP Pulse Ox 98.4 F 67 20 142/65 H 92 L 04/17/20 07:35 04/17/20 07:35 04/17/20 07:35 04/17/20 07:35 04/17/20 07:35 Narrative: Laboratory Results - last 24 hr 04/16/20 16:20: POC Glucose 269 H 04/16/20 20:01: POC Glucose 208 H 04/17/20 05:52: POC Glucose 70 04/17/20 07:00: WBC 7.8, RBC 3.66 L, Hgb 10.6 L, Hct 32.6 L, MCV 89.0, MCH 28.8, MCHC 32.4, RDW 14.7, Plt Count 115 L, MPV 11.1 H, Neut % (Auto) 59.6, Lymph % (Auto) 29.9, [place] % (Auto) 7.4, Eos % (Auto) 2.4, Baso % (Auto) 0.6, Neut # (Auto) 4.7, Lymph # (Auto) 2.3, [place] # (Auto) 0.6, Eos # (Auto) 0.2, Baso # (Auto) 0.1 04/17/20 07:00: Sodium 137, Potassium 3.8, Chloride 106, Carbon Dioxide 30, Anion Gap 4.8 L, BUN 25 H, Creatinine 1.20 D, Estimated Creat Clear 72, Estimated GFR 60, Est GFR ( Amer) 72 D, Glucose 67 L, Calcium 8.4 04/17/20 08:54: POC Glucose 67 L Exam: General appearance: alert, active, awake, no acute distress Cardiovascular: regular rate & rhythm, normal peripheral pulses Respiratory: No respiratory distress noted, speaks in full sentences ABD: soft and non tender Neuro: alert, awake, oriented x 3 On examination of the LEFT lower extremity, the limb lengths are equal. The alignment is neutral. The surgical incisions are clean, dry and healthy. Dermabond Prineo dressings are in place and are are clean, dry and intact. No erythema, discharge or induration noted. Movements of the LEFT hip are painful. Distal neurovascular status is intact. Thigh and calf are soft and nontender. No clinical signs of DVT noted. - Urinary Catheter Management Poe Cath placed during this visit: no Progress Note: A&P (1) Hip fracture, intertrochanteric Status: Acute (2) Hypothyroidism Status: Acute (3) Neuropathy Status: Chronic (4) History of CVA (cerebrovascular accident) Status: Chronic (5) Type 2 diabetes mellitus, with long-term current use of insulin Status: Chronic (6) Smoker Status: Chronic (7) HTN (hypertension) Status: Chronic (8) Anemia Status: Acute (9) Thrombocytopenia Status: Acute (10) Hypokalemia Status: Acute (11) HCAP (healthcare-associated pneumonia) Status: Acute Assessment and Plan for All Diagnoses:: Reviewed the findings and progress with patient. Patient is doing well from an orthopedic standpoint but is slow with mobilization/physical therapy. Continue PT/OT, pain management with as needed analgesics. From an orthopedic standpoint, he can be discharged if medically appropriate. Patient is on long-term Eliquis and that should be sufficient for DVT prophylaxis. Dermabond Prineo dressings are in place over the surgical incisions-do not remove the Dermabond Prineo dressings unless there is suspicion for infection or other complications. Follow-up in my office in 2 weeks? time with check x-ray. Continue medical management as per Dr. Ndiaye?s team.
[2020-04-17 16:10] LABS: POC Glucose,Bedside 106 (70-110)
--- NOTE | 2020-04-17 16:15 | PC.NURSE ---
HE IS AOX4, ABLE OT MAKE NEEDS KNOWN TO STAFF, DID HAVE ONE EPISODE OF INCONTINENCE THIS AM, TRANSFERRED FROM CHAIR TO BED BUT DID NOT TOLERATE WELL R/T TO WEAKNESS OF BLE. HIS MORNING DOSE OF INSULIN WAS HELD DUE TO FSBS RESULTS, PT HAS DENIED PAIN THUS FAR, NO BM HAS BEEN NOTED, HIS VS HAVE BEEN WNL, HE HAS NOT REQUIRED O2 SUPPORT T/O SHIFT, PT DENIED N/V/D OR ABD DISCOMFORT, NO NEEDS VOICED AT THIS TIME. WILL CONTINUE TO MONITOR.
[2020-04-17 20:53] LABS: POC Glucose,Bedside 227 (70-110)
[2020-04-17 21:58] LABS: POC Glucose,Bedside 224 (70-110)
--- NOTE | 2020-04-18 03:03 | PC.NURSE ---
Addendum entered by Gabriella Palencia RN 04/18/20 03:05: Pt has c/o lt hip pain x2 this shift, pt medicated per MAY. Original Note: Pt is A7Ox4 this shift. Lung sounds diminished t/o. No cough noted. IS used during awake hours. IS @ best 1750cc's. Active bowel sounds in all 4 quads. no BM noted this shift. Pt has been incontinent of urine x2 this shift. Lt hip remains HOLLY, no irritation noted. No other acute changes or complaints at this time.
[2020-04-18 03:56] VITALS: BP 130/67; PULSE 61; RESP 17; TEMP 36.6; O2SAT 94
[2020-04-18 04:56] VITALS: BMI 27.1
[2020-04-18 05:32] LABS: POC Glucose,Bedside 70 (70-110)
[2020-04-18 06:53] VITALS: PULSE 61; O2SAT 98
[2020-04-18 06:53] LABS: Basophils % 0.4 % (0.1-2.0); Eosinophils # 0.1 K/mm3 (0.0-0.4); Eosinophils % 1.7 % (0.1-12.0); Hemoglobin 10.6 g/dL (14.1-18.0); Lymphocytes # 2.3 K/mm3 (0.7-4.5); Lymphocytes % 27.5 % (10-50); Mean Corpuscular HGB Conc 31.9 g/dL (31.8-35.4); Mean Corpuscular Hemoglobin 28.7 pg (27.0-31.2); Mean Corpuscular Volume 89.7 fl (80-94); Monocytes # 0.5 K/mm3 (0.1-1.0); Monocytes % 5.6 % (1.7-9.3); Neutrophils # 5.4 K/mm3 (1.8-7.8); Neutrophils % 64.8 % (37.0-80.0); Platelet Count 136 K/mm3 (142-424); Red Blood Count 3.68 M/mm3 (4.60-6.20); Red Cell Distribution Width 14.9 % (11.5-17.5); White Blood Count 8.3 K/mm3 (4.8-10.8)
[2020-04-18 06:57] LABS: Chloride 105 mmol/L (98-107); Potassium 4.2 mmoL/L (3.5-5.1); Sodium 138 mmol/L (136-145)
[2020-04-18 07:00] LABS: Blood Urea Nitrogen 27 mg/dl (9-20); Creatinine Clearance Estimated 72 mL/min (50-200); Estimated Glomerular Filt Rate 60 ml/min (>60); GFR (African American) 72 ML/MIN (>60)
[2020-04-18 07:01] LABS: Anion Gap 5.2 mEq/L (5-15); Calcium 8.3 mg/dl (8.4-10.2); Carbon Dioxide 32 mmol/L (22.0-30.0); Glucose 53 mg/dl (74-100)
[2020-04-18 08:00] VITALS: BP 155/67; PULSE 63; RESP 16; TEMP 36.9; O2SAT 95
--- NOTE | 2020-04-18 08:14 | PC.NURSE ---
PT FSBS 51 AT 0800 THIS AM, HELD MORNING INSULIN AND BROUGHT PT ORANGE JUICE, PUDDINGX2, AND DIET PEPSI. PT IS ASYMPTOMATIC. WILL CONTINUE TO MONITOR PT.
--- NOTE | 2020-04-18 09:59 | HMH.ACPN ---
Internal Medicine - PN: Subj *Date: 04/18/20 *Time: 09:59 Exam Vital signs and Labs for Last 24 Hours: Temp Pulse Resp BP Pulse Ox 98.4 F 63 16 155/67 H 95 04/18/20 08:00 04/18/20 08:00 04/18/20 08:00 04/18/20 08:00 04/18/20 08:00 Laboratory Results - last 24 hr 04/17/20 08:54: POC Glucose 67 L 04/17/20 11:21: POC Glucose 106 04/17/20 17:18: POC Glucose 224 H 04/17/20 20:15: POC Glucose 227 H 04/18/20 05:14: POC Glucose 70 04/18/20 06:30: WBC 8.3, RBC 3.68 L, Hgb 10.6 L, Hct 33.0 L, MCV 89.7, MCH 28.7, MCHC 31.9, RDW 14.9, Plt Count 136 L, MPV 11.0 H, Neut % (Auto) 64.8, Lymph % (Auto) 27.5, [place] % (Auto) 5.6, Eos % (Auto) 1.7, Baso % (Auto) 0.4, Neut # (Auto) 5.4, Lymph # (Auto) 2.3, [place] # (Auto) 0.5, Eos # (Auto) 0.1, Baso # (Auto) 0.0 04/18/20 06:30: Sodium 138, Potassium 4.2, Chloride 105, Carbon Dioxide 32 H, Anion Gap 5.2, BUN 27 H, Creatinine 1.20, Estimated Creat Clear 72, Estimated GFR 60, Est GFR ( Amer) 72, Glucose 53 L D, Calcium 8.3 L I & O for Last 24 hours: Intake & Output 04/15/20 04/16/20 04/17/20 04/18/20 23:59 23:59 23:59 23:59 Intake Total 1525 / 1525 2254 / 2254 2186 / 2186 240 / 240 Output Total 200 / 200 550 / 550 1050 / 1050 Balance 1325 / 1325 1704 / 1704 2186 / 2186 -810 / -810 Weight 85.02 kg 87.146 kg 90.066 kg 90.747 kg Assessment and Plan (1) Hip fracture, intertrochanteric Status: Acute Qualifiers: Encounter type: initial encounter Fracture type: closed Fracture alignment: displaced Laterality: left Qualified Code(s): S72.142A - Displaced intertrochanteric fracture of left femur, initial encounter for closed fracture Category: Medical Code(s): S72.143A - Displaced intertrochanteric fracture of unspecified femur, initial encounter for closed fracture (2) Hypothyroidism Status: Acute Qualifiers: Hypothyroidism type: acquired Qualified Code(s): E03.9 - Hypothyroidism, unspecified Category: Medical Code(s): E03.9 - Hypothyroidism, unspecified (3) Neuropathy Status: Chronic Category: Medical Code(s): G62.9 - Polyneuropathy, unspecified (4) History of CVA (cerebrovascular accident) Status: Chronic Category: Medical Code(s): Z86.73 - Personal history of transient ischemic attack (TIA), and cerebral infarction without residual deficits (5) Type 2 diabetes mellitus, with long-term current use of insulin Status: Chronic Qualifiers: Diabetes mellitus complication status: with other specified complication Qualified Code(s): E11.69 - Type 2 diabetes mellitus with other specified complication; Z79.4 - senior living (current) use of insulin Category: Medical Code(s): E11.9 - Type 2 diabetes mellitus without complications; Z79.4 - senior living (current) use of insulin (6) Smoker Status: Chronic Category: Social Hx Code(s): F17.200 - Nicotine dependence, unspecified, uncomplicated (7) HTN (hypertension) Status: Chronic Qualifiers: Hypertension type: essential hypertension Qualified Code(s): I10 - Essential (primary) hypertension Category: Medical Code(s): I10 - Essential (primary) hypertension (8) Anemia Status: Acute Qualifiers: Anemia type: unspecified type Qualified Code(s): D64.9 - Anemia, unspecified Category: Medical Code(s): D64.9 - Anemia, unspecified (9) Thrombocytopenia Status: Acute Category: Medical Code(s): D69.6 - Thrombocytopenia, unspecified (10) Hypokalemia Status: Acute Category: Medical Code(s): E87.6 - Hypokalemia (11) HCAP (healthcare-associated pneumonia) Status: Acute Category: Medical Code(s): J18.9 - Pneumonia, unspecified organism The patient's infection will respond to the chosen ABx?: Yes Is the patient receiving the right drug, dose, and route?: Yes Could a more targeted ABx be ordered?: No
[2020-04-18 11:48] LABS: POC Glucose,Bedside 161 (70-110)
[2020-04-18 11:48] LABS: POC Glucose,Bedside 51 (70-110)
--- NOTE | 2020-04-18 12:44 | P.PN_ITS ---
Subjective Date: 04/18/20 Time: 11:30 Principal diagnosis: S/p cephalomedullary nailing, left hip Interval history: The patient is doing well this morning, no acute events reported overnight. He reports some pain in the left hip, but says it is manageable with pain medi cation. He is on Eliquis for DVT prophylaxis and has been weightbearing as tolerated on the left lower extremity. He is appropriate for discharge from an orthopedic standpoint but is awaiting placement due to insurance issues. PN: Obj Ex Vital signs: Temp Pulse Resp BP Pulse Ox 98.4 F 63 16 155/67 H 95 04/18/20 08:00 04/18/20 08:00 04/18/20 08:00 04/18/20 08:00 04/18/20 08:00 - Constitutional no acute distress - Routine HEENT Exam Head: Present: normocephalic Eye: Present: EOMI ENT: Present: mucous membranes moist - Routine Neck Exam Present: trachea midline - Routine Respiratory Exam Absent: respiratory distress, wheezes - Routine Cardiovascular Exam Present: RRR - Routine Abdominal Exam Present: soft. Absent: tenderness - Routine Extremities Exam Comments: L hip incisions c/d/i, no dressing on hip at moment no periwound erythema, no tenderness or drainage +DF/PF/EHL LLE SILT distally LLE in all distributions palpable pedal pulses LLE, foot pink/warm L calf soft, non-tender; negative Lottie's - Routine Skin Exam Present: warm - Routine Neurological Exam Present: alert, oriented X3, moving all extremities, normal tone, vision grossly intact, hearing grossly intact, normal speech. Absent: sensory deficit, motor deficit, altered mental status - Urinary Catheter Management Poe Cath placed during this visit: no Progress Note: A&P (1) Hip fracture, intertrochanteric Status: Acute (2) Hypothyroidism Status: Acute (3) Neuropathy Status: Chronic (4) History of CVA (cerebrovascular accident) Status: Chronic (5) Type 2 diabetes mellitus, with long-term current use of insulin Status: Chronic (6) Smoker Status: Chronic (7) HTN (hypertension) Status: Chronic (8) Anemia Status: Acute (9) Thrombocytopenia Status: Acute (10) Hypokalemia Status: Acute (11) HCAP (healthcare-associated pneumonia) Status: Acute Assessment and Plan for All Diagnoses:: 69yo M POD 5 s/p IMN L femur -- continue PT/OT, WBAT LLE -- continue Eliquis per PCP for DVT prophy -- ice L hip as needed -- continue current pain medication regimen -- encourage IS 10x/hr while awake -- ok to d/c from ortho standpoint when placement arranged; f/u with Dr. Coombs in 2 weeks
--- NOTE | 2020-04-18 12:50 | HMH.ACPN2 ---
Internal Medicine - PN: Subj *Date: 04/18/20 *Time: 12:56 Interval history: hypoglycemic dip this morning, corrected rll pneumonia on cxr 04-15-19, will repeat afebrile alert,clear,lucid Exam Vital signs and Labs for Last 24 Hours: Temp Pulse Resp BP Pulse Ox 98.4 F 63 16 155/67 H 95 04/18/20 08:00 04/18/20 08:00 04/18/20 08:00 04/18/20 08:00 04/18/20 08:00 Laboratory Results - last 24 hr 04/17/20 11:21: POC Glucose 106 04/17/20 17:18: POC Glucose 224 H 04/17/20 20:15: POC Glucose 227 H 04/18/20 05:14: POC Glucose 70 04/18/20 06:30: WBC 8.3, RBC 3.68 L, Hgb 10.6 L, Hct 33.0 L, MCV 89.7, MCH 28.7, MCHC 31.9, RDW 14.9, Plt Count 136 L, MPV 11.0 H, Neut % (Auto) 64.8, Lymph % (Auto) 27.5, [place] % (Auto) 5.6, Eos % (Auto) 1.7, Baso % (Auto) 0.4, Neut # (Auto) 5.4, Lymph # (Auto) 2.3, [place] # (Auto) 0.5, Eos # (Auto) 0.1, Baso # (Auto) 0.0 04/18/20 06:30: Sodium 138, Potassium 4.2, Chloride 105, Carbon Dioxide 32 H, Anion Gap 5.2, BUN 27 H, Creatinine 1.20, Estimated Creat Clear 72, Estimated GFR 60, Est GFR ( Amer) 72, Glucose 53 L D, Calcium 8.3 L 04/18/20 08:05: POC Glucose 51 L 04/18/20 10:28: POC Glucose 161 H I & O for Last 24 hours: Intake & Output 04/15/20 04/16/20 04/17/20 04/18/20 23:59 23:59 23:59 23:59 Intake Total 1525 / 1525 2254 / 2254 2186 / 2186 240 / 240 Output Total 200 / 200 550 / 550 1050 / 1050 Balance 1325 / 1325 1704 / 1704 2186 / 2186 -810 / -810 Weight 187 lb 7 oz 192 lb 2 oz 198 lb 9 oz 200 lb 1 oz - Constitutional no acute distress - *Routine HEENT Exam Head: Present: normocephalic Eye: Present: EOMI, PERRL ENT: Present: mucous membranes moist - *Routine Neck Exam Present: supple. Absent: lymphadenopathy - *Routine Respiratory Exam Present: rhonchi, crackles. Absent: accessory muscle use, respiratory distress, stridor, wheezes - *Routine Cardiovascular Exam Present: RRR - *Routine Abdominal Exam Present: soft, normoactive bowel sounds. Absent: tenderness - *Routine Extremities Exam Absent: cyanosis, clubbing, edema, calf tenderness - *Routine Skin Exam Present: warm. Absent: rash - *Routine Neurological Exam Present: alert, oriented X3, moving all extremities, vision grossly intact, hearing grossly intact, normal speech Assessment and Plan (1) Hip fracture, intertrochanteric Status: Acute Qualifiers: Encounter type: initial encounter Fracture type: closed Fracture alignment: displaced Laterality: left Qualified Code(s): S72.142A - Displaced intertrochanteric fracture of left femur, initial encounter for closed fracture Category: Medical Code(s): S72.143A - Displaced intertrochanteric fracture of unspecified femur, initial encounter for closed fracture (2) Hypothyroidism Status: Acute Qualifiers: Hypothyroidism type: acquired Qualified Code(s): E03.9 - Hypothyroidism, unspecified Category: Medical Code(s): E03.9 - Hypothyroidism, unspecified (3) Neuropathy Status: Chronic Category: Medical Code(s): G62.9 - Polyneuropathy, unspecified (4) History of CVA (cerebrovascular accident) Status: Chronic Category: Medical Code(s): Z86.73 - Personal history of transient ischemic attack (TIA), and cerebral infarction without residual deficits (5) Type 2 diabetes mellitus, with long-term current use of insulin Status: Chronic Qualifiers: Diabetes mellitus complication status: with other specified complication Qualified Code(s): E11.69 - Type 2 diabetes mellitus with other specified complication; Z79.4 - manager intermediate (current) use of insulin Category: Medical Code(s): E11.9 - Type 2 diabetes mellitus without complications; Z79.4 - [facility] (current) use of insulin (6) Smoker Status: Chronic Category: Social Hx Code(s): F17.200 - Nicotine dependence, unspecified, uncomplicated (7) HTN (hypertension) Status: Chronic Qualifiers: Hypertension type: essential hypertensi
--- NOTE | 2020-04-18 15:03 | PC.NURSE ---
PT IS AOX4, HAS SPENT MOST OF SHIFT UP TO CHAIR AND TOLERATED WELL,HE IS ABLE TO MAKE CHANGES IN POSITION WHILE UP TO CHAIR BUT HAS DIFFICULTY TURNING IN BED R/T PAIN. HE HAS REQUIRED PAIN MEDICATION PER MAR X1 THIS SHIFT WITH GOOD EFFECTIVENESS NOTED, HE HAS TOLERATED DIET WELL, FSBS WAS 51 THIS AM AND MORNING DOSE OF INSULIN WAS HELD. HE WAS NOT ASYMPTOMATIC FOR HYPOGLYCEMIA AND PT WAS PROVIDED WITH SNACKS AND JUICES, HE F/U FSBS AT 100 WAS 161 AND 2 UNITS WAS ADMIN PER MAR. THE INCISION TO HIS LEFT HIP IS HOLLY, IT HAS REMAINED CLOSED WITH NO DRAINAGE NOTED, SKIN IS CLEAN AND DRY. NO REDNESS OR IRRITATION NOTED. HIS ABD IS SOFT AND NON-TENDER, BS ACTIVE X1, NO TENDERNESS NOTED UPON PALPATION. HE HAS NOT REQUIRED O2 SUPPORT AND IS TOLERATING RA WELL.
[2020-04-18 15:16] VITALS: BP 137/58; PULSE 62; RESP 17; TEMP 36.8; O2SAT 97
--- NOTE | 2020-04-18 15:36 | PC.NURSE ---
HE IS AOX4, ABLE TO MAKE NEEDS KNOWN TO STAFF, HAS BEEN UP TO CHAIR FOR MOST OF SHIFT, HE IS ABLE TO MAKE POSITIONAL CHANGES IN THE CHAIR MORE EASILY THAN WHILE LYING IN BED R/T PAIN. HE HAS TOLERATED DIET WELL, ABD IS SOFT ROUND AND NON-TENDER WITH ACTIVE BOWEL SOUNDSX4, NO N/V/D NOTED, NO BM THUS FAR, VITAL SIGNS REMIAN STABLE, TOLERATING RA WELL, SURGICAL INCISION TO LEFT HIP IS HOLLY, REMAINS CLEAN AND DRY, NO DRAINAGE OR S/S/ OF INFECTION NOTED, PAIN STATED THAT HE DID HAVE PAIN UPON AMBULATION WITH PT THIS MORNING, HAS USED THE URINAL WHILE UP TO THE CHAIR. THIS AM FSBS WAS NOTED TO BE 51 SO MORNING DOSE OF INSULIN WAS HELD AND SNACKS AND JUICES WERE PROVIDED, PT WAS ASYMPTOMATIC FOR HYPERGLYCEMIA @1100 CHECK PT WAS 161 SO 2 UNITS WAS ADMIN PER MAY, NO NEEDS ST THID TIME. WILL CONTINUE TO MONITOR.
[2020-04-18 17:55] VITALS: PULSE 69; PULSE 74; O2SAT 94
[2020-04-18 20:00] VITALS: BP 116/42; PULSE 64; RESP 16; TEMP 36.8; O2SAT 100
[2020-04-18 20:57] LABS: POC Glucose,Bedside 254 (70-110)
[2020-04-18 22:27] LABS: POC Glucose,Bedside 254 (70-110)
[2020-04-19] VITALS (9 sets, daily range): BP systolic 121–156; BP diastolic 46–80; PULSE 56–77; RESP 16–20; TEMP 36.2–36.9; O2SAT 93–99; BMI 27.6
--- NOTE | 2020-04-19 03:12 | PC.NURSE ---
No acute changes. Pt was up to chair early in shift. Ambulated to bed with walker and assist x2. Pt tolerated poorly, although pt stated that it went better this time. He had difficulty lifting self out of chair and needed assistance. Had difficulty with foot placement. Had to stop for rest periods and needed assist x2 to get into bed. Safety is a concern. Pt has been incontinent of urine this shift, while also using the urinal. Pt encouraged to use incentive spirometer. He remains on RA. Lungs are diminished. VSS. Remains afebrile. Call light within reach. No other concerns at this time. Will continue to monitor.
[2020-04-19 05:40] LABS: Basophils # 0.1 K/mm3 (0-0.2); Basophils % 0.6 % (0.1-2.0); Eosinophils # 0.3 K/mm3 (0.0-0.4); Hematocrit 36.1 % (42.0-52.0); Hemoglobin 11.6 g/dL (14.1-18.0); Lymphocytes # 2.9 K/mm3 (0.7-4.5); Lymphocytes % 27.3 % (10-50); Mean Corpuscular HGB Conc 32.1 g/dL (31.8-35.4); Mean Corpuscular Hemoglobin 28.7 pg (27.0-31.2); Mean Corpuscular Volume 89.3 fl (80-94); Mean Platelet Volume 10.5 fl (7.4-10.4); Monocytes # 0.6 K/mm3 (0.1-1.0); Monocytes % 5.6 % (1.7-9.3); Neutrophils # 6.8 K/mm3 (1.8-7.8); Neutrophils % 63.5 % (37.0-80.0); Platelet Count 156 K/mm3 (142-424); Red Blood Count 4.05 M/mm3 (4.60-6.20); Red Cell Distribution Width 14.8 % (11.5-17.5); White Blood Count 10.7 K/mm3 (4.8-10.8)
[2020-04-19 05:49] LABS: Anion Gap 6.5 mEq/L (5-15); Blood Urea Nitrogen 27 mg/dl (9-20); Calcium 8.9 mg/dl (8.4-10.2); Carbon Dioxide 32 mmol/L (22.0-30.0); Chloride 103 mmol/L (98-107); Creatinine Clearance Estimated 79 mL/min (50-200); Estimated Glomerular Filt Rate 66 ml/min (>60); GFR (African American) 80 ML/MIN (>60); Potassium 4.5 mmoL/L (3.5-5.1); Sodium 137 mmol/L (136-145)
[2020-04-19 05:52] LABS: Glucose 65 mg/dl (74-100)
--- NOTE | 2020-04-19 06:00 | XR_ITS ---
PROCEDURE: XR CHEST PORTABLE CLINICAL HISTORY: pneumonia COMPARISON: CR XR CHEST PORTABLE from 04/10/2020 CR XR CHEST PORTABLE from 04/15/2020 CR XR CHEST 2V from 04/15/2020 FINDINGS: This is a poor inspiratory effort causing some crowding of vascular markings at the lung bases. There may be some minimal atelectasis or residual pneumonic infiltrate at the right base, the right upper lung field and left lung hendricks are grossly clear. There is no definite pleural fluid. Cardiac size is normal. There are bilateral high-riding humeral heads suggesting rotator cuff pathology. IMPRESSION: Minimal residual right lower lobe infiltrate versus atelectasis, difficult to evaluate interval change from the previous study due to the poor inspiration Dictated by: Dr. Arnaldo Newell MD 04/19/2020 09:28 Dr. Arnaldo Newell MD in [place] 04/19/2020 09:28
[2020-04-19 06:05] LABS: POC Glucose,Bedside 74 (70-110)
--- NOTE | 2020-04-19 06:18 | PC.NURSE ---
FSBS obtained with returning results of 43 this AM. Was repeated and stat glucose was ordered and obtained. Pt was given orange juice with sugar and peanut butter and crackers. Pt finished snack. Fingerstick was obtained again @ 0542 resulting 46. Amp of D50 administered. notified. New orders received. D5 NS @ 75 ml/hr. FSBS 74 @ 0525.
--- NOTE | 2020-04-19 08:28 | PC.NURSE ---
PT FSBS @0819 IS 158. HOLDING 20 UNITS AT THIS TIME. WILL RECHECK FSBS AT 1100 TODAY. PT WAS HYPOGLYCEMIC OVERNIGHT DURING PREVIOUS SHIFT. WILL CONTINUE TO MONITOR PT
[2020-04-19 10:36] LABS: POC Glucose,Bedside 285 (70-110)
--- NOTE | 2020-04-19 11:32 | HMH.ORTHPN ---
Subjective Date: 04/19/20 Time: 10:00 Principal diagnosis: S/p cephalomedullary nailing, left hip Interval history: The patient is doing well this morning. He says getting up and walking is getting easier. No f/c, no n/v/d, no cp/soa. PN: Obj Ex Vital signs: Temp Pulse Resp BP Pulse Ox 98.4 F 68 20 121/69 96 04/19/20 07:48 04/19/20 07:48 04/19/20 07:48 04/19/20 07:48 04/19/20 07:48 - Constitutional no acute distress - Routine HEENT Exam Head: Present: normocephalic Eye: Present: EOMI ENT: Present: mucous membranes moist - Routine Neck Exam Present: trachea midline - Routine Respiratory Exam Absent: respiratory distress, wheezes - Routine Cardiovascular Exam Present: RRR - Routine Abdominal Exam Present: soft. Absent: tenderness - Routine Extremities Exam Comments: L hip incisions c/d/i, no dressing on hip no periwound erythema, no tenderness or drainage +DF/PF/EHL LLE SILT distally LLE in all distributions palpable pedal pulses LLE, foot pink/warm L calf soft, non-tender; negative Lottie's - Routine Skin Exam Present: warm - Routine Neurological Exam Present: alert, oriented X3, moving all extremities, normal tone, vision grossly intact, hearing grossly intact, normal speech. Absent: sensory deficit, motor deficit, altered mental status - Urinary Catheter Management Poe Cath placed during this visit: no Progress Note: A&P (1) Hip fracture, intertrochanteric Status: Acute (2) Hypothyroidism Status: Acute (3) Neuropathy Status: Chronic (4) History of CVA (cerebrovascular accident) Status: Chronic (5) Type 2 diabetes mellitus, with long-term current use of insulin Status: Chronic (6) Smoker Status: Chronic (7) HTN (hypertension) Status: Chronic (8) Anemia Status: Acute (9) Thrombocytopenia Status: Acute (10) Hypokalemia Status: Acute (11) HCAP (healthcare-associated pneumonia) Status: Acute Assessment and Plan for All Diagnoses:: 69yo M POD 6 s/p IMN L femur -- continue PT/OT, WBAT LLE -- continue Eliquis per PCP for DVT prophy -- ice L hip as needed -- continue current pain medication regimen -- encourage IS 10x/hr while awake -- ok to d/c from ortho standpoint when placement arranged; f/u with Dr. Coombs in 2 weeks
--- NOTE | 2020-04-19 12:13 | HMH.ACPN2 ---
Internal Medicine - PN: Subj *Date: 04/19/20 *Time: 12:13 Interval history: Patient relays no significant interval changes overnight. He denies shortness of breath, chest pain, calf pain. He does have some pain along the left hip, fracture site. Orthopedic progress notes are reviewed. Patient had a chest x-ray which demonstrated some minimal residual right lower lobe changes. The interpretation was admitted by suboptimal inspiration. There is no productive sputum. Labs have been stable. Patient is eating well, has a good appetite. I encouraged him to use his incentive spirometer aggressively. We are working on placement arrangement. Exam Vital signs and Labs for Last 24 Hours: Temp Pulse Resp BP Pulse Ox 98.4 F 68 20 121/69 96 04/19/20 07:48 04/19/20 07:48 04/19/20 07:48 04/19/20 07:48 04/19/20 07:48 Laboratory Results - last 24 hr 04/18/20 16:50: POC Glucose 254 H 04/18/20 20:33: POC Glucose 254 H 04/19/20 05:35: WBC 10.7 D, RBC 4.05 L, Hgb 11.6 L, Hct 36.1 L, MCV 89.3, MCH 28.7, MCHC 32.1, RDW 14.8, Plt Count 156, MPV 10.5 H, Neut % (Auto) 63.5, Lymph % (Auto) 27.3, [place] % (Auto) 5.6, Eos % (Auto) 3.0, Baso % (Auto) 0.6, Neut # (Auto) 6.8, Lymph # (Auto) 2.9, [place] # (Auto) 0.6, Eos # (Auto) 0.3, Baso # (Auto) 0.1 04/19/20 05:35: Sodium 137, Potassium 4.5, Chloride 103, Carbon Dioxide 32 H, Anion Gap 6.5, BUN 27 H, Creatinine 1.10, Estimated Creat Clear 79, Estimated GFR 66, Est GFR ( Amer) 80, Glucose 65 L D, Calcium 8.9 04/19/20 05:56: POC Glucose 74 04/19/20 10:25: POC Glucose 285 H I & O for Last 24 hours: Intake & Output 04/16/20 04/17/20 04/18/2021 23:59 23:59 23:59 23:59 Intake Total 2254 / 2254 2186 / 2186 930 / 930 600 / 600 Output Total 550 / 550 1600 / 1600 Balance 1704 / 1704 2186 / 2186 -670 / -670 600 / 600 Weight 192 lb 2 oz 198 lb 9 oz 200 lb 1 oz 204 lb 6 oz - Constitutional no acute distress, cooperative - *Routine HEENT Exam Head: Present: normocephalic Eye: Present: EOMI, PERRL ENT: Present: mucous membranes moist - *Routine Neck Exam Present: supple. Absent: lymphadenopathy - *Routine Respiratory Exam Present: rhonchi. Absent: accessory muscle use, prolonged expiratory phase, wheezes, crackles - *Routine Cardiovascular Exam Present: RRR - *Routine Abdominal Exam Present: soft, normoactive bowel sounds. Absent: tenderness - *Routine Extremities Exam Absent: cyanosis, clubbing, edema - *Routine Skin Exam Present: warm. Absent: rash - *Routine Neurological Exam Present: alert, oriented X3 Assessment and Plan (1) Hip fracture, intertrochanteric Status: Acute Qualifiers: Encounter type: initial encounter Fracture type: closed Fracture alignment: displaced Laterality: left Qualified Code(s): S72.142A - Displaced intertrochanteric fracture of left femur, initial encounter for closed fracture Category: Medical Code(s): S72.143A - Displaced intertrochanteric fracture of unspecified femur, initial encounter for closed fracture (2) Hypothyroidism Status: Acute Qualifiers: Hypothyroidism type: acquired Qualified Code(s): E03.9 - Hypothyroidism, unspecified Category: Medical Code(s): E03.9 - Hypothyroidism, unspecified (3) Neuropathy Status: Chronic Category: Medical Code(s): G62.9 - Polyneuropathy, unspecified (4) History of CVA (cerebrovascular accident) Status: Chronic Category: Medical Code(s): Z86.73 - Personal history of transient ischemic attack (TIA), and cerebral infarction without residual deficits (5) Type 2 diabetes mellitus, with long-term current use of insulin Status: Chronic Qualifiers: Diabetes mellitus complication status: with other specified complication Qualified Code(s): E11.69 - Type 2 diabetes mellitus with other specified complication; Z79.4 - intermediate manager (current) use of insulin Category: Medical Code(s): E11.9 - Type 2 diabetes mellitus without
--- NOTE | 2020-04-19 14:54 | PC.NURSE ---
HE IS AOX4, ABLE TO MAKE NEEDS KNOWN TO STAFF, HE HAS BEEN UP TO CHAIR FOR MOST OF SHIFT, HE IS TOLERATING RA WELL. WAS NOTED TO BE ASLEEP IN CHAIR THIS AFTERNOON, HAS NOT C/O PAIN THIS SHIFT, HIS FSBS WAS ELEVATED AT 1100 CHECK AND HE DID RECEIVE INSULIN COVERAGE. D5 HAS BEEN D/C PT IS NOW SL, HIP INCISION IS GAS PIT WORKER, NO DRAINAGE NOTED, SITE IS C/D/I, NO S/S OF INFECTION OR INFLAMMATION NOTED, NO NEEDS AT THIS TIME, WILL CONTINUE TO MONITOR.
[2020-04-19 16:51] LABS: POC Glucose,Bedside 401 (70-110)
[2020-04-19 16:51] LABS: POC Glucose,Bedside 158 (70-110)
--- NOTE | 2020-04-19 20:48 | PC.NURSE ---
notified of FSBS of 141 tonight. Pt on Humalog SS and scheduled lantus 30 units. Pt has been hypoglycemic in AM. New orders. Stop insulin.
[2020-04-19 21:04] LABS: POC Glucose,Bedside 141 (70-110)
[2020-04-20] VITALS (9 sets, daily range): BP systolic 97–147; BP diastolic 65–73; PULSE 56–96; RESP 17–20; TEMP 36.5–36.9; O2SAT 90–99; BMI 27.6
--- NOTE | 2020-04-20 04:11 | PC.NURSE ---
Pt has been awake most of night. Has c/o pain x1. medicated per mar. He continues to have great difficulty with repositioning in bed and ambulation. Has been incontinent this shift of B&B at times. Pt had a large BM. VS have remained stable. Pt remains on RA. Lungs are diminished. Pt educated on use of incentive spirometer. (L) hip incision site is HOLLY. No drainage noted. No other concerns. Will continue to monitor.
[2020-04-20 06:58] LABS: Basophils # 0.1 K/mm3 (0-0.2); Basophils % 0.6 % (0.1-2.0); Eosinophils # 0.2 K/mm3 (0.0-0.4); Eosinophils % 2.5 % (0.1-12.0); Hematocrit 31.1 % (42.0-52.0); Lymphocytes # 2.2 K/mm3 (0.7-4.5); Lymphocytes % 27.4 % (10-50); Mean Corpuscular HGB Conc 32.2 g/dL (31.8-35.4); Mean Corpuscular Hemoglobin 28.6 pg (27.0-31.2); Mean Corpuscular Volume 89.1 fl (80-94); Mean Platelet Volume 11.2 fl (7.4-10.4); Monocytes # 0.5 K/mm3 (0.1-1.0); Neutrophils # 5.1 K/mm3 (1.8-7.8); Neutrophils % 63.6 % (37.0-80.0); Platelet Count 148 K/mm3 (142-424)
[2020-04-20 06:58] LABS: POC Glucose,Bedside 165 (70-110)
[2020-04-20 07:08] LABS: Chloride 104 mmol/L (98-107); Sodium 135 mmol/L (136-145)
[2020-04-20 07:09] LABS: Potassium 4.8 mmoL/L (3.5-5.1)
[2020-04-20 07:11] LABS: Blood Urea Nitrogen 27 mg/dl (9-20); Creatinine Clearance Estimated 68 mL/min (50-200); Estimated Glomerular Filt Rate 54 ml/min (>60); GFR (African American) 66 ML/MIN (>60)
[2020-04-20 07:12] LABS: Calcium 8.4 mg/dl (8.4-10.2); Carbon Dioxide 31 mmol/L (22.0-30.0); Glucose 156 mg/dl (74-100)
[2020-04-20 07:13] LABS: Anion Gap 4.8 mEq/L (5-15)
[2020-04-20 10:40] LABS: POC Glucose,Bedside 251 (70-110)
--- NOTE | 2020-04-20 11:40 | HMH.ACPN2 ---
Internal Medicine - PN: Subj *Date: 04/20/20 *Time: 08:00 Interval history: pt laying in bed, states pain in hip. Per staff pt is still requiring alot of help getting out of bed and getting up by self. Exam Vital signs and Labs for Last 24 Hours: Temp Pulse Resp BP Pulse Ox 98.1 F 66 18 97/70 L 93 L 04/20/20 08:00 04/20/20 08:00 04/20/20 08:00 04/20/20 08:00 04/20/20 08:00 Laboratory Results - last 24 hr 04/19/20 08:19: POC Glucose 158 H 04/19/20 16:32: POC Glucose 401 H* 04/19/20 20:15: POC Glucose 141 H 04/20/20 06:08: POC Glucose 165 H 04/20/20 06:35: WBC 8.0 D, RBC 3.50 L, Hgb 10.0 L, Hct 31.1 L, MCV 89.1, MCH 28.6, MCHC 32.2, RDW 15.0, Plt Count 148, MPV 11.2 H, Neut % (Auto) 63.6, Lymph % (Auto) 27.4, [place] % (Auto) 6.0, Eos % (Auto) 2.5, Baso % (Auto) 0.6, Neut # (Auto) 5.1, Lymph # (Auto) 2.2, [place] # (Auto) 0.5, Eos # (Auto) 0.2, Baso # (Auto) 0.1 04/20/20 06:35: Sodium 135 L, Potassium 4.8, Chloride 104, Carbon Dioxide 31 H, Anion Gap 4.8 L, BUN 27 H, Creatinine 1.30 H, Estimated Creat Clear 68, Estimated GFR 54 L, Est GFR ( Amer) 66, Glucose 156 H, Calcium 8.4 04/20/20 10:31: POC Glucose 251 H I & O for Last 24 hours: Intake & Output 04/17/20 04/18/20 04/19/20 04/20/20 11:59 11:59 11:59 11:59 Intake Total 3440 / 3440 760 / 760 1290 / 1290 870 / 870 Output Total 250 / 250 1050 / 1050 550 / 550 2100 / 2100 Balance 3190 / 3190 -290 / -290 740 / 740 -1230 / -1230 Weight 198 lb 9 oz 200 lb 1 oz 204 lb 6 oz 203 lb 15.37 oz - Constitutional no acute distress - *Routine HEENT Exam Head: Present: normocephalic Eye: Present: PERRL ENT: Present: mucous membranes moist - *Routine Neck Exam Present: supple. Absent: lymphadenopathy - *Routine Respiratory Exam Present: CTA bilaterally - *Routine Cardiovascular Exam Present: RRR - *Routine Abdominal Exam Present: soft, normoactive bowel sounds. Absent: tenderness - *Routine Extremities Exam Absent: cyanosis, clubbing, edema Comments: decrease rom left lower ext - *Routine Skin Exam Present: warm. Absent: rash Comments: dressing c/d/i - *Routine Neurological Exam Present: alert, oriented X3 - Routine Psychiatric Exam Present: normal affect Assessment and Plan (1) Hip fracture, intertrochanteric Status: Acute Qualifiers: Encounter type: initial encounter Fracture type: closed Fracture alignment: displaced Laterality: left Qualified Code(s): S72.142A - Displaced intertrochanteric fracture of left femur, initial encounter for closed fracture Category: Medical Code(s): S72.143A - Displaced intertrochanteric fracture of unspecified femur, initial encounter for closed fracture (2) Hypothyroidism Status: Acute Qualifiers: Hypothyroidism type: acquired Qualified Code(s): E03.9 - Hypothyroidism, unspecified Category: Medical Code(s): E03.9 - Hypothyroidism, unspecified (3) Neuropathy Status: Chronic Category: Medical Code(s): G62.9 - Polyneuropathy, unspecified (4) History of CVA (cerebrovascular accident) Status: Chronic Category: Medical Code(s): Z86.73 - Personal history of transient ischemic attack (TIA), and cerebral infarction without residual deficits (5) Type 2 diabetes mellitus, with long-term current use of insulin Status: Chronic Qualifiers: Diabetes mellitus complication status: with other specified complication Qualified Code(s): E11.69 - Type 2 diabetes mellitus with other specified complication; Z79.4 - middle or intermediate school principal (current) use of insulin Category: Medical Code(s): E11.9 - Type 2 diabetes mellitus without complications; Z79.4 - middle or intermediate school principal (current) use of insulin (6) Smoker Status: Chronic Category: Social Hx Code(s): F17.200 - Nicotine dependence, unspecified, uncomplicated (7) HTN (hypertension) Status: Chronic Qualifiers: Hypertension type: essential hypertension Qualified Code(s): I10 - Essential (primary) hyperten
[2020-04-20 11:42] LABS: POC Glucose,Bedside 43 (70-110)
[2020-04-20 11:42] LABS: POC Glucose,Bedside < 40 (70-110)
[2020-04-20 11:42] LABS: POC Glucose,Bedside 46 (70-110)
[2020-04-20 11:42] LABS: POC Glucose,Bedside < 40 (70-110)
[2020-04-20 14:12] LABS: Adenovirus,PCR Not Detected (NotDetected); Bordetella Pertussis Not Detected (NotDetected); Chlamydophila Pneumoniae, PCR Not Detected (NotDetected); Coronavirus 19, PCR Not Detected (NotDetected); Coronavirus 229E Not Detected (NotDetected); Coronavirus NL63 Not Detected (NotDetected); Coronavirus OC43 Not Detected (NotDetected); Coronovirus HKU1,PCR Not Detected (NotDetected); Human Metapneumovirus Not Detected (NotDetected); Influenza A, PCR Not Detected (NotDetected); Influenza AH1, 2009 Not Detected (NotDetected); Influenza AH1, PCR Not Detected (NotDetected); Influenza AH3,PCR Not Detected (NotDetected); Influenza B, PCR Not Detected (NotDetected); Mycoplasma Pneumoniae, PCR Not Detected (NotDetected); Parainfluenza 1, PCR Not Detected (NotDetected); Parainfluenza 2, PCR Not Detected (NotDetected); Parainfluenza 3, PCR Not Detected (NotDetected); Parainfluenza 4, PCR Not Detected (NotDetected); Respiratory Syncytial Virus Not Detected (NotDetected); Rhinovirus/Enterovirus Not Detected (NotDetected)
--- NOTE | 2020-04-20 14:21 | XR_ITS ---
PROCEDURE: XR HIP LT 2-3V W/PELVIS CLINICAL INDICATION: hip fracture COMPARISON: CR XR HIP LT 2-3V W/PELVIS from 04/10/[address] HIP LT WO CON from 04/10/2020 CR XR HIP LT 2-3V W/PELVIS from 04/13/2020 FINDINGS: There has been interval medullary benoit and screw fixation on intertrochanteric left hip fracture which was visible on to 07/23/2020 x-ray. There is good alignment of the bony structures and prosthetic components with no x-ray evidence of complication. IMPRESSION: Good alignment of bony structures and prosthetic components with no x-ray evidence of complication. Dictated by: Prerna Del Toro MD 04/20/2020 19:15 Prerna Del Toro MD in [place] 04/20/2020 19:15
--- NOTE | 2020-04-20 14:28 | HMH.ORTHPN ---
Subjective Date: 04/20/20 Time: 14:15 Principal diagnosis: S/p cephalomedullary nailing, left hip Interval history: Patient is status post cephalo-medullary nailing LEFT femur, post op day 7. He is sitting out in a chair and says he is doing well. He says he is getting better every day but still reports some pain over the left hip. He says his pain is well controlled with as needed medication. No history of any fevers, chills or rigors. He is being treated for pneumonia. I understand that insurance has [facility]. PN: Obj Ex Vital signs: Temp Pulse Resp BP Pulse Ox 98.1 F 93 H 18 97/70 L 97 04/20/20 08:00 04/20/20 12:51 04/20/20 08:00 04/20/20 08:00 04/20/20 12:51 Narrative: Laboratory Results - last 24 hr 04/19/20 05:17: POC Glucose 43 L* 04/19/20 05:21: POC Glucose < 40 L* 04/19/20 05:38: POC Glucose < 40 L* 04/19/20 05:42: POC Glucose 46 L* 04/19/20 08:19: POC Glucose 158 H 04/19/20 16:32: POC Glucose 401 H* 04/19/20 20:15: POC Glucose 141 H 04/20/20 06:08: POC Glucose 165 H 04/20/20 06:35: WBC 8.0 D, RBC 3.50 L, Hgb 10.0 L, Hct 31.1 L, MCV 89.1, MCH 28.6, MCHC 32.2, RDW 15.0, Plt Count 148, MPV 11.2 H, Neut % (Auto) 63.6, Lymph % (Auto) 27.4, [place] % (Auto) 6.0, Eos % (Auto) 2.5, Baso % (Auto) 0.6, Neut # (Auto) 5.1, Lymph # (Auto) 2.2, [place] # (Auto) 0.5, Eos # (Auto) 0.2, Baso # (Auto) 0.1 04/20/20 06:35: Sodium 135 L, Potassium 4.8, Chloride 104, Carbon Dioxide 31 H, Anion Gap 4.8 L, BUN 27 H, Creatinine 1.30 H, Estimated Creat Clear 68, Estimated GFR 54 L, Est GFR ( Amer) 66, Glucose 156 H, Calcium 8.4 04/20/20 10:31: POC Glucose 251 H Exam: General appearance: alert, active, awake, no acute distress Cardiovascular: regular rate & rhythm, normal peripheral pulses Respiratory: No respiratory distress noted, speaks in full sentences ABD: soft and non tender Neuro: alert, awake, oriented x 3 On examination of the LEFT lower extremity, the limb lengths are equal. The alignment is neutral. The surgical incisions are clean, dry and healthy. Dermabond Prineo dressings are in place and are are clean, dry and intact. No erythema, discharge or induration noted. Movements of the LEFT hip are painful. Distal neurovascular status is intact. Thigh and calf are soft and nontender. No clinical signs of DVT noted. - Urinary Catheter Management Poe Cath placed during this visit: no Progress Note: A&P (1) Hip fracture, intertrochanteric Status: Acute (2) Hypothyroidism Status: Acute (3) Neuropathy Status: Chronic (4) History of CVA (cerebrovascular accident) Status: Chronic (5) Type 2 diabetes mellitus, with long-term current use of insulin Status: Chronic (6) Smoker Status: Chronic (7) HTN (hypertension) Status: Chronic (8) Anemia Status: Acute (9) Thrombocytopenia Status: Acute (10) Hypokalemia Status: Acute (11) HCAP (healthcare-associated pneumonia) Status: Acute Assessment and Plan for All Diagnoses:: I have reviewed the findings and progress with patient. Patient is progressing somewhat slowly but overall is doing well from an orthopedic standpoint. Continue PT/OT, mobilization as tolerated, pain management with as needed analgesics. I understand that his insurance has denied jail facility placement for rehab. Dermabond Prineo dressings are in place over the surgical incisions-do not remove the Dermabond Prineo dressings unless there is suspicion for infection or other complications. We will obtain a check x-ray of his left hip today. Continue medical management as per Dr. Ndiaye?s team.
[2020-04-20 17:07] LABS: POC Glucose,Bedside 294 (70-110)
--- NOTE | 2020-04-20 18:31 | PC.NURSE ---
PT IS SITTING UP IN THE CHAIR. PT HAS SLEPT OFF AND ON T/O THE SHIFT. RECEIVED PAIN MEDICATION ONCE THIS SHIFT. PT IS A 2 MAX ASSIST TO TRANSFER. PT REQUIRES ASSISTANCE WITH USING THE URINAL. PT HAD 1 LARGE BOWEL MOVEMENT ON THE C THIS SHIFT. PT NEEDS ASSISTANCE WITH TURNING AND REPOSITIONING. LUNG SOUNDS HAVE SCATTERED RHONCHI. ABDOMEN SOFT/NON TENDER WITH ACTIVE BOWEL SOUNDS. INCISION NOTED TO THE LT HIP OPEN TO AIR. EATING AND DRINKING WELL. IT WAS DISCUSSED WITH PT TODAY ABOUT HOW IMPORTANT IT WAS FOR HIM TO GO TO [facility] FOR REHAB AND PT UNDERSTANDS HE STATES HE IS JUST REALLY CONCERNED HOW HE IS GOING TO PAY RENT FOR HIS APARTMENT. PT'S POA HAS BEEN UNREACHABLE SINCE MONDAY B/ ACCORDING TO PT SHE DOES NOT HAVE ANY MINUTES LEFT ON HER PHONE. WILL CONTINUE TO MONITOR.
[2020-04-20 21:27] LABS: POC Glucose,Bedside 243 (70-110)
--- NOTE | 2020-04-21 02:27 | PC.NURSE ---
A&OX4. PT HAS TOLERATED RA WELL THROUGHOUT SHIFT. RESPIRATIONS REGULAR AND UNLABORED. LUNG SOUNDS DIMINISHED THROUGHOUT. NO COUGH NOTED. ACTIVE BOWEL SOUNDS HEARD IN ALL 4 QUADRANTS. SOFT AND NONTENDER ABDOMEN. NO BM THUS FAR. PT VOIDS PER URINAL. CLEAR YELLOW URINE NOTED. HAND MANAGER OF TRAINING AND DEVELOPMENT EQUAL. +2 PULSES NOTED THROUGHOUT. NO EDEMA NOTED. PT HAS REPORTED PAIN TWICE AND RECEIVED PAIN MEDS PER MAR. ON REASSESSMENT, PT SAID PAIN WAS TOLERABLE OR HE WAS RESTING W EYES CLOSED. INCISION NOTED TO L HIP. OPEN TO AIR. CDI. PT HAS RECEIVED 2 ANTIBIOTICS THIS SHIFT AND TOLERATED WELL. BED IN LOWEST POSITION. CALL LIGHT WITHIN REACH. VSS. WILL CONTINUE TO MONITOR.
[2020-04-21 04:00] VITALS: BP 152/76; PULSE 60; RESP 18; TEMP 36.6; O2SAT 95
[2020-04-21 05:00] VITALS: BMI 27.5
[2020-04-21 05:32] LABS: POC Glucose,Bedside 77 (70-110)
[2020-04-21 06:13] VITALS: PULSE 59; PULSE 62; O2SAT 91
[2020-04-21 07:21] VITALS: BP 150/72; PULSE 63; RESP 16; TEMP 36.6; O2SAT 94
[2020-04-21 07:39] LABS: Basophils # 0.1 K/mm3 (0-0.2); Basophils % 0.7 % (0.1-2.0); Eosinophils # 0.3 K/mm3 (0.0-0.4); Hematocrit 36.3 % (42.0-52.0); Hemoglobin 11.3 g/dL (14.1-18.0); Lymphocytes # 2.5 K/mm3 (0.7-4.5); Lymphocytes % 30.2 % (10-50); Mean Corpuscular HGB Conc 31.3 g/dL (31.8-35.4); Mean Corpuscular Hemoglobin 28.2 pg (27.0-31.2); Mean Corpuscular Volume 90.1 fl (80-94); Monocytes # 0.5 K/mm3 (0.1-1.0); Monocytes % 5.8 % (1.7-9.3); Neutrophils % 60.3 % (37.0-80.0); Platelet Count 168 K/mm3 (142-424); Red Blood Count 4.02 M/mm3 (4.60-6.20); Red Cell Distribution Width 14.7 % (11.5-17.5); White Blood Count 8.4 K/mm3 (4.8-10.8)
--- NOTE | 2020-04-21 10:04 | HMH.ACPN2 ---
Internal Medicine - PN: Subj *Date: 04/21/20 *Time: 10:04 Interval history: looking better - will go to [facility] for rehab at this time Exam Vital signs and Labs for Last 24 Hours: Temp Pulse Resp BP Pulse Ox 97.9 F 63 16 150/72 H 94 L 04/21/20 07:21 04/21/20 07:21 04/21/20 07:21 04/21/20 07:21 04/21/20 07:21 Laboratory Results - last 24 hr 04/19/20 05:17: POC Glucose 43 L* 04/19/20 05:21: POC Glucose < 40 L* 04/19/20 05:38: POC Glucose < 40 L* 04/19/20 05:42: POC Glucose 46 L* 04/20/20 10:31: POC Glucose 251 H 04/20/20 14:00: Chlamy pneumoniae PCR Not detected, Adenovirus (PCR) Not detected, B. pertussis DNA (PCR) Not detected, Coronavirus OC43 (PCR) Not detected, Coronavirus HKU1 (PCR) Not detected, Coronavirus 229E (PCR) Not detected, SARS-CoV-2 (PCR) Not detected, Coronavirus NL63 (PCR) Not detected, Human Metapneumovir PCR Not detected, Influenza A (H1) PCR Not detected, Influ A (H1N1/09) PCR Not detected, Influenza A (H3) PCR Not detected, Influenza Type A (PCR) Not detected, Influenza Type B (PCR) Not detected, M. pneumoniae (PCR) Not detected, Parainfluenza 1 (PCR) Not detected, Parainfluenza 2 (PCR) Not detected, Parainfluenza 3 (PCR) Not detected, Parainfluenza 4 (PCR) Not detected, RSV (PCR) Not detected, Entero/Rhino (PCR) Not detected 04/20/20 16:58: POC Glucose 294 H 04/20/20 20:05: POC Glucose 243 H 04/21/20 05:10: POC Glucose 77 04/21/20 07:05: WBC 8.4, RBC 4.02 L, Hgb 11.3 L, Hct 36.3 L, MCV 90.1, MCH 28.2, MCHC 31.3 L, RDW 14.7, Plt Count 168, MPV 10.0, Neut % (Auto) 60.3, Lymph % (Auto) 30.2, [place] % (Auto) 5.8, Eos % (Auto) 3.0, Baso % (Auto) 0.7, Neut # (Auto) 5.0, Lymph # (Auto) 2.5, [place] # (Auto) 0.5, Eos # (Auto) 0.3, Baso # (Auto) 0.1 I & O for Last 24 hours: Intake & Output 04/18/20 04/19/20 04/20/20 04/21/20 11:59 11:59 11:59 11:59 Intake Total 760 / 760 1290 / 1290 870 / 870 1040 / 1040 Output Total 1050 / 1050 550 / 550 2100 / 2100 800 / 800 Balance -290 / -290 740 / 740 -1230 / -1230 240 / 240 Weight 200 lb 1 oz 204 lb 6 oz 203 lb 15.37 oz 203 lb - Constitutional no acute distress - *Routine HEENT Exam Head: Present: normocephalic Eye: Present: EOMI, PERRL ENT: Present: mucous membranes dry - *Routine Neck Exam Absent: JVD - *Routine Respiratory Exam Present: CTA bilaterally - *Routine Cardiovascular Exam Present: RRR, murmur - *Routine Abdominal Exam Present: soft - *Routine Extremities Exam Absent: calf tenderness Comments: needs assistance for transfer and ambulation with walker - *Routine Skin Exam Comments: suture line ok - *Routine Neurological Exam Present: alert, CN II-XII intact - Routine Psychiatric Exam Present: normal affect Assessment and Plan (1) Hip fracture, intertrochanteric Status: Acute Qualifiers: Encounter type: initial encounter Fracture type: closed Fracture alignment: displaced Laterality: left Qualified Code(s): S72.142A - Displaced intertrochanteric fracture of left femur, initial encounter for closed fracture Category: Medical Code(s): S72.143A - Displaced intertrochanteric fracture of unspecified femur, initial encounter for closed fracture (2) Hypothyroidism Status: Acute Qualifiers: Hypothyroidism type: acquired Qualified Code(s): E03.9 - Hypothyroidism, unspecified Category: Medical Code(s): E03.9 - Hypothyroidism, unspecified (3) Neuropathy Status: Chronic Category: Medical Code(s): G62.9 - Polyneuropathy, unspecified (4) History of CVA (cerebrovascular accident) Status: Chronic Category: Medical Code(s): Z86.73 - Personal history of transient ischemic attack (TIA), and cerebral infarction without residual deficits (5) Type 2 diabetes mellitus, with long-term current use of insulin Status: Chronic Qualifiers: Diabetes mellitus complication status: with other specified complication Qualified Code(s): E11.69 - Type 2 diabetes mellitus with other s
--- NOTE | 2020-04-21 10:16 | HMH.DCSUM ---
General - General Admission date:: 04/11/20 Discharge date: 04/21/20 HPI HPI: this pt was walking and felt like knee gave out and fell with pain to lt hip - he was brought to ed by ems - pt with known marked djd knees - pt with no fever - no known covid -19 exposure - he has tob use, diabetes and heart dis on eliquis - he usually ambulates with cane - Hospital Course Hospital Course: 69-year-old male patient presented to the emergency department after fall on the street and injuring the left hip. He states he felt like his knee gave out and could not get up to walk after the fall. He denies chest pain, shortness of breath, dizziness. He usually ambulates with the help of a cane. He does have a past medical history of hypertension, coronary artery disease, previous CVA, diabetes, diabetic neuropathy, tobacco use, and bilateral knee arthritis 04/13/20 Closed reduction and cephalomedullary nailing, left femoral neck fracture 04/10/20 L Hip XR FINDINGS: There is a nondisplaced fracture involving the intertrochanteric portion of the left hip. The fracture extends from the base of the lesser trochanter through the intertrochanteric region and appears to exit superiorly at the base of the femoral neck. Consider CT for more thorough evaluation. There has been a right hip hemiarthroplasty placed which is in good alignment. DISH is present in the lower lumbar spine. IMPRESSION: 1. Nondisplaced left intertrochanteric fracture with extension into the femoral neck. 2. Status post right hip hemiarthroplasty Dictated by: Jordi Fairchild 04/10/[address]: FINDINGS: Prior anterior cervical discectomy with fusion from C3-C5. No acute fracture or dislocation. C2-C3: Degenerative disc disease. Small central disc protrusion or disc osteophyte complex C3-C4: Degenerate disc disease with foraminal narrowing. C4-C5: Degenerative disc disease C5-C6: Degenerative disc disease with endplate hypertrophic change eccentric to the right with bilateral foraminal narrowing left greater than right C6-C7: Degenerate disc disease with endplate hypertrophic change and bilateral foraminal narrowing. C7-T1: Degenerate disc disease with bilateral foraminal narrowing. Lung apices are clear. Mucous is present within the distal trachea layering posteriorly. There is diffuse vascular calcification. IMPRESSION: 1. No acute fracture. 2. Multilevel cervical spondylosis. Please see above for detailed description at each level. Dictated by: Jordi Fairchild 04/10/20 R Shoulder XR: FINDINGS: No fracture or dislocation. No lytic or blastic change. There is normal mineralization. Osteoarthritic changes are present at the acromioclavicular and glenohumeral joint. Subchondral cystic changes are present in the humeral head. There is a high-riding humeral head with severe subacromial stenosis consistent with rotator cuff tear. Other findings:None. IMPRESSION: No acute fracture. Osteoarthritis with high-riding humeral head and severe subacromial stenosis suggesting rotator cuff tear Dictated by: Jordi Fairchild 04/15/20 CXR: FINDINGS: The cardiomediastinal silhouette and pulmonary vascularity are within normal limits. Previous exam suggested infiltrate in the lower lobes. Upright PA and lateral views are obtained. There is patchy density once again noted in the right mid and lower lung suspicious for pneumonia. The left lung is clear. Degenerative changes thoracic spine. IMPRESSION: Right lower lobe pneumonia Dictated by: Gurinder 04/20/20 L Hip XR: FINDINGS: There has been interval medullary benoit and screw fixation an intertrochanteric left hip fracture which was visible on to 07/23/2020 x-ray. There is good alignment of the bony structures and prosthetic components with no x-ray evidence of complication. IMPRESSION: Good alignment of bony structures and prosthetic components with no x-ray navi
[2020-04-21 12:37] LABS: POC Glucose,Bedside 176 (70-110)
[2020-04-21 12:38] VITALS: PULSE 54; PULSE 59
--- NOTE | 2020-04-21 15:34 | PC.NURSE ---
PT IS SITTING UP IN THE CHAIR. REQUIRES MAX ASSIST TO GET UP FROM THE CHAIR OR OOB. PT STATES HE HAS HAD HIP SURGERY IN THE PAST BUT HE FEELS LIKE HE IS HAVING A MORE DIFFICULT TIME RECOVERING FROM THIS SURGERY. PT STATES HE DOES HAVE REALLY BAD KNEES AND HE THINKS THAT IS ANOTHER REASON WHY HE IS HAVING PROBLEMS WITH RECOVERING. PT STATES HE IS READY TO GO TO REHAB AND HOPES HE RECOVERS QUICKLY SO HE CAN GO BACK TO HIS APARTMENT. PT IS VERY FRUSTRATED B/C HE CANNOT GET IN TOUCH WITH HIS GIRLFRIEND B/C HE STATES HER AND HER CHILDREN IS THE ONLY SUPPORT HE HAS. REPORT WAS CALLED TO [facility] AND PT RECEIVED A BATH BEFORE AMBULANCE WAS CONTACTED TO TRANSPORT. PT HAS USED THE URINAL TO VOID BUT HAS HAD A FEW INCONTINENT EPISODES. PT'S LAST BOWEL MOVEMENT WAS YESTERDAY. PT HAS BEEN SITTING UP IN THE CHAIR SINCE THIS MORNING AT 0815. EATING AND DRINKING WELL. IV ACCESS TO THE CE WAS DC'D. VSS.
== END 2020-04-21 15:55 | DRG 480 ==
LOC: ER 21:24 → 2ND 22:10
PROVIDERS: Emergency Medicine; Nurse Practitioner Family; Orthopaedic Surgery; Admitting Provider Emergency Medicine; Emergency Provider Emergency Medicine; PCP Emergency Medicine; Visit Provider Emergency Medicine
PROC: 0QS706Z Reposition Left Upper Femur with Intramedullary Internal Fixation Device, Open Approach (ICD-10-PCS; CPT 27245; principal; 2020-04-13 12:15)
DX: S72.142A Displaced intertrochanteric fracture of left femur, initial encounter for closed fracture (principal); J18.9 Pneumonia, unspecified organism; W01.0XXA Fall on same level from slipping, tripping and stumbling without subsequent striking against object, initial encounter; Y92.480 Sidewalk as the place of occurrence of the external cause; M17.0 Bilateral primary osteoarthritis of knee; Z72.0 Tobacco use; J44.9 Chronic obstructive pulmonary disease, unspecified; E87.6 Hypokalemia; Z86.73 Personal history of transient ischemic attack (TIA), and cerebral infarction without residual deficits; E03.9 Hypothyroidism, unspecified; E11.42 Type 2 diabetes mellitus with diabetic polyneuropathy; Z79.4 Long term (current) use of insulin; Z79.01 Long term (current) use of anticoagulants; Z79.51 Long term (current) use of inhaled steroids; Z79.899 Other long term (current) drug therapy; M85.48 Solitary bone cyst, other site
CPT/HCPCS: 27245; 36415; 70450; 71045; 71046; 72125; 72170; 73030; 73080; 73502; 73562; 73700; 76000; 80048; 80053; 81001; 82962; 83735; 84145; 85025; 85610; 85651; 85730; 86140; 87205; 87581; 87633; 87798; 88307; 88311; 92610; 93005; 93306; 94640; 94761; 96365; 96372; 96375; 97110; 97116; 97162; 97166; 97530; 97535; 99284; C1713; C1769; C1776; J1956; J2405; U0003

== ENCOUNTER → 2020-04-28 13:27 | Outpatient (CLI) | payer MEDICARE, MEDICAID, SELFPAY ==
--- NOTE | 2020-04-28 13:29 | CA_ITS ---
APPROVED REPORT Manager Garden: Mari Soler RVT Laterality: Bilateral Study Quality: Excellent Indications: CHANDA Risk Factors TIA/CVA History Diabetes Doppler Spectral Velocity Analysis ECA (R) 188.10/12.90 cm/s ECA (L) 111.70/1.20 cm/s dICA (R) 78.10/16.00 cm/s dICA (L) 65.80/16.50 cm/s Willy (R) 99.40/25.70 cm/s Willy (L) 65.80/20.00 cm/s pICA (R) 61.00/7.50 cm/s pICA (L) 48.20/15.30 cm/s dCCA (R) 51.30/8.60 cm/s dCCA (L) 50.60/5.90 cm/s pCCA (R) 70.60/8.60 cm/s pCCA (L) 65.80/11.80 cm/s Vert (R) 56.40/17.60 cm/s Vert (L) 46.20/14.40 cm/s Findings Study suggests less than 20% stenosis of the bilateral internal cartoid arteries. Antegrade flow seen bilateral vertebral arteries. Conclusion Study suggests less than 20% stenosis of the bilateral internal cartoid arteries. Antegrade flow seen bilateral vertebral arteries. Electronically signed by : Jordi Fairchild MD 04/28/2020 17:42:53
--- NOTE | 2020-04-28 13:55 | XR_ITS ---
PROCEDURE: XR HIP LT 2-3V W/PELVIS CLINICAL INDICATION: LT femur nailing, dos 04/13/20 COMPARISON: CR XR HIP LT 2-3V W/PELVIS from 04/20/2020 FINDINGS: There is a right hip hemiarthroplasty in place. Status post gamma nail and short intramedullary benoit insertion of the left hip stabilizing the intertrochanteric fracture which is in good alignment. There are degenerative changes in the lumbar spine with bridging osteophytes at L4-5. IMPRESSION: Good alignment status post ORIF left hip Dictated by: Jordi Fairchild MD 04/28/2020 15:11 Jordi Fairchild MD in OV 04/28/2020 15:11
== END ==
PROVIDERS: PCP Emergency Medicine; Visit Provider Emergency Medicine
DX: R09.89 Other specified symptoms and signs involving the circulatory and respiratory systems; Z09 Encounter for follow-up examination after completed treatment for conditions other than malignant neoplasm; I65.23 Occlusion and stenosis of bilateral carotid arteries
CPT/HCPCS: 73502; 93880

== ENCOUNTER → 2020-05-27 14:40 | Outpatient (CLI) | payer MEDICARE, MEDICAID, SELFPAY ==
--- NOTE | 2020-05-27 14:45 | XR_ITS ---
PROCEDURE: XR HIP LT 2-3V W/PELVIS CLINICAL INDICATION: sp LT femur nailing, dos 04/13/20 COMPARISON: CR XR HIP LT 2-3V W/PELVIS from 04/28/2020 FINDINGS: There has been prior right hip hemiarthroplasty. Left femoral gamma nail is in place. Intertrochanteric fracture of the left hip noted with mild lateral displacement of the distal fracture fragment. IMPRESSION: Status post right hip replacement. Status post left femoral nailing. Good alignment. Dictated by: Jordi Fairchild MD 05/27/2020 15:41 Jordi Fairchild MD in OV 05/27/2020 15:41
== END ==
PROVIDERS: PCP Emergency Medicine; Visit Provider Orthopaedic Surgery
DX: Z09 Encounter for follow-up examination after completed treatment for conditions other than malignant neoplasm (principal); M25.552 Pain in left hip
CPT/HCPCS: 73502

== ENCOUNTER → 2020-08-11 13:02 | Outpatient (CLI) | payer MEDICARE, MEDICAID, SELFPAY ==
--- NOTE | 2020-08-11 13:09 | XR_ITS ---
PROCEDURE: XR HIP LT 2-3V W/PELVIS CLINICAL INDICATION: sp lt femur nailing, dos 04/13/20 Follow-up hip nailing COMPARISON: CR XR HIP LT 2-3V W/PELVIS from 05/27/2020 FINDINGS: Gamma nails present within the left hip stabilizing an intertrochanteric fracture with good alignment. Fracture line is still visible. No significant displacement. There are mild osteoarthritic changes in the left hip. IMPRESSION: Good alignment status post ORIF left hip intertrochanteric fracture Dictated by: Jordi Fairchild MD 08/11/2020 13:40 Jordi Fairchild MD in OV 08/11/2020 13:40
== END ==
PROVIDERS: PCP Emergency Medicine; Visit Provider Orthopaedic Surgery
DX: Z09 Encounter for follow-up examination after completed treatment for conditions other than malignant neoplasm (principal)
CPT/HCPCS: 73502

== ENCOUNTER → 2020-10-28 10:31 | Outpatient (CLI) | payer MEDICARE, MEDICAID, SELFPAY ==
--- NOTE | 2020-10-28 10:36 | XR_ITS ---
PROCEDURE: XR HIP LT 2-3V W/PELVIS CLINICAL INDICATION: sp left femur nailing, dos 04/13/20 COMPARISON: CR XR HIP LT 2-3V W/PELVIS from 08/11/2020 FINDINGS: AP view of the pelvis shows a right-sided bipolar prosthesis of the hip. Status post gamma nail with short intramedullary benoit placement into the left femur with healing intertrochanteric fracture. Fracture line appears less apparent from 08/11/2020. There are mild osteoarthritic changes of the left hip and there are degenerative changes in the lumbar spine with bridging syndesmophytes IMPRESSION: S/p gamma nail with intramedullary benoit placement in the left hip with healing intertrochanteric fracture with good alignment Dictated by: Jordi Fairchild MD 10/28/2020 12:34 Jordi Fairchild MD in OV 10/28/2020 12:34
== END ==
PROVIDERS: PCP Emergency Medicine; Visit Provider Orthopaedic Surgery
DX: Z09 Encounter for follow-up examination after completed treatment for conditions other than malignant neoplasm (principal)
CPT/HCPCS: 73502

== ENCOUNTER 2021-08-09 02:44 | Emergency (ER) | payer MEDICARE, MEDICAID, SELFPAY ==
[2021-08-09] VITALS (12 sets, daily range): BP systolic 103–175; BP diastolic 55–157; PULSE 54–76; RESP 12–22; TEMP 34.2–35.6; O2SAT 94–96; BMI 35.2
--- NOTE | 2021-08-09 02:41 | XR_ITS ---
PROCEDURE INFORMATION: Exam: XR Chest Exam date and time: 08/09/2021 3:01 AM Age: 71 years old Clinical indication: Cough; Additional info: Cough low temperature TECHNIQUE: Imaging protocol: XR of the chest. Views: 1 view. COMPARISON: CR XR CHEST PORTABLE 04/19/2020 6:12 AM FINDINGS: Lungs: Poor inspiratory effort. Hypoventilatory changes at both lung bases. No evidence of consolidations, interstitial patterns or pulmonary nodules. Pleural spaces: No evidence of effusions or pneumothorax. Heart/Mediastinum: The cardiomediastinal silhouette is normal in size and configuration. There is no evidence of cardiomegaly. Bones/joints: Intact. IMPRESSION: Poor inspiratory effort. Hypoventilatory changes at both lung bases. No evidence of consolidations, interstitial patterns or pulmonary nodules.
[2021-08-09 03:05] LABS: Basophils # 0.2 K/mm3 (0-0.2); Eosinophils # 0.1 K/mm3 (0.0-0.4); Lymphocytes # 1.4 K/mm3 (0.7-4.5); Monocytes # 0.8 K/mm3 (0.1-1.0)
--- NOTE | 2021-08-09 03:08 | PC.NURSE ---
EDUARDO SCHAEFER APPLIED.
[2021-08-09 03:09] LABS: Basophils % 1.2 % (0.1-2.0); Eosinophils % 0.5 % (0.1-12.0); Hematocrit 54.3 % (42.0-52.0); Hemoglobin 17.7 g/dL (14.1-18.0); Lymphocytes % 8.8 % (10-50); Mean Corpuscular HGB Conc 32.6 g/dL (31.8-35.4); Mean Corpuscular Hemoglobin 29.7 pg (27.0-31.2); Mean Corpuscular Volume 91.1 fl (80-94); Mean Platelet Volume 11.3 fl (7.4-10.4); Monocytes % 4.9 % (1.7-9.3); Neutrophils # 13.6 K/mm3 (1.8-7.8); Neutrophils % 84.5 % (37.0-80.0); Platelet Count 119 K/mm3 (142-424); Red Blood Count 5.97 M/mm3 (4.60-6.20); White Blood Count 16.1 K/mm3 (4.8-10.8)
--- NOTE | 2021-08-09 03:10 | ECG_ITS ---
APPROVED REPORT Exam: Resting ECG HR:77 bpm ECG Measurements Heart Rate 77 AXES QRSd 124 QRS -19 QT 403 T 85 QTc 435 Conclusion ATRIAL FIBRILLATION MINIMAL VOLTAGE CRITERIA FOR LVH, CONSIDER NORMAL VARIANT [MEETS CRITERIA IN ONE OF: R(aVL), S(V1), R(V5), R(V5/V6)+S(V1)] INFERIOR MYOCARDIAL INFARCTION , PROBABLY OLD [40+ ms Q WAVE AND/OR ST/T ABNORMALITY IN II/aVF] ANTEROLATERAL MYOCARDIAL INFARCTION , OF INDETERMINATE AGE [40+ ms Q WAVE IN I/aVL/V3-V6] ABNORMAL ECG UNCONFIRMED REPORT Electronically signed by : Jonathon Perales MD 08/10/2021 18:42:56
[2021-08-09 03:12] LABS: MANUAL DIFFERENTIAL MANUAL DIFFERENTIAL (MANUAL DIFF)
[2021-08-09 03:17] LABS: Alanine Aminotransferase 26 U/L (12-78); Albumin Level 4.1 g/dl (3.5-5.0); Albumin/Globulin Ratio 1.1 (1.1-1.8); Alkaline Phosphatase 149 U/L (38-126); Anion Gap 9.8 mEq/L (5-15); Aspartate Amino Transferase 30 U/L (17-59); Bilirubin,Total 0.2 mg/dl (0.2-1.3); Blood Urea Nitrogen 31 mg/dl (9-20); Calcium 9.1 mg/dl (8.4-10.2); Carbon Dioxide 33 mmol/L (22.0-30.0); Chloride 99 mmol/L (98-107); Creatinine Clearance Estimated 69 mL/min (50-200); Estimated Glomerular Filt Rate 43 ml/min (>60); GFR (African American) 52 ML/MIN (>60); Globulin 3.7 g/dL (1.3-3.2); Glucose 125 mg/dl (74-100); Lactic Acid 1.2 mmol/L (0.7-2.1); Potassium 3.8 mmoL/L (3.5-5.1); Sodium 138 mmol/L (136-145); Total Protein,Serum 7.8 g/dl (6.3-8.2)
[2021-08-09 03:22] LABS: C-Reactive Protein 4.4 mg/L (0-4)
[2021-08-09 03:25] LABS: POC Glucose,Bedside 72 (70-110)
--- NOTE | 2021-08-09 03:26 | HMH.EDGENADL ---
ED Disposition Clinical Impression: Hypoglycemia Hypothermia Qualifiers: Encounter type: initial encounter Qualified Code(s): T68.XXXA - Hypothermia, initial encounter Type 2 diabetes mellitus, with long-term current use of insulin Qualifiers: Diabetes mellitus complication status: with other specified complication Qualified Code(s): E11.69 - Type 2 diabetes mellitus with other specified complication; Z79.4 - shelter (current) use of insulin A-fib Qualifiers: Atrial fibrillation type: unspecified chronic Qualified Code(s): I48.20 - Chronic atrial fibrillation, unspecified Hypothyroidism Qualifiers: Hypothyroidism type: acquired Qualified Code(s): E03.9 - Hypothyroidism, unspecified Disposition: Home, Self-Care Condition on Discharge: Good Instructions: DI for Hyperglycemia -- Adult Additional Instructions: resume orders Referrals: Maurice Ndiaye MD [Primary Care Provider] - - Critical Care Critical Care Time: No Attestation: On 08/09/21, the high probability of a clinically significant, sudden or life threatening deterioration of the following system(s) required my full and direct attention, intervention and personal management. The time I documented below is in addition to time spent performing reported procedures but includes the following listed in this critical care notation. Medical Decision Making - Medical Records Medical records reviewed: Yes: I reviewed the patient's medical records. - Melchor Inquiry Pt receiving controlled substance: No Vital Signs: 08/09/21 02:25 08/09/21 03:31 08/09/21 03:36 Temperature 93.5 F L Temperature Source Rectal Pulse Rate 74 70 Respiratory Rate 17 22 21 Blood Pressure 175/157 H 124/92 H Blood Pressure [Right Arm] 158/84 H Blood Pressure Mean 161 102 Blood Pressure Mean [Right Arm] 108 Blood Pressure Source [Right Arm] Automatic Cuff Blood Pressure Position [Right Arm] Sitting 02 Sat by Pulse Oximetry 95 96 94 L Oxygen Delivery Method Room Air 08/09/21 04:01 08/09/21 04:31 08/09/21 05:01 Temperature 95.4 F L Temperature Source Rectal Pulse Rate 73 76 75 Respiratory Rate 14 14 14 Blood Pressure 117/79 128/78 146/79 H Blood Pressure [Right Arm] Blood Pressure Mean 91 98 97 Blood Pressure Mean [Right Arm] Blood Pressure Source [Right Arm] Blood Pressure Position [Right Arm] 02 Sat by Pulse Oximetry 94 L 95 95 Oxygen Delivery Method 08/09/21 05:31 08/09/21 06:00 08/09/21 07:01 Temperature 96.0 F L Temperature Source Rectal Pulse Rate 73 Respiratory Rate 13 13 12 Blood Pressure 116/64 103/55 L 157/76 H Blood Pressure [Right Arm] Blood Pressure Mean 85 79 Blood Pressure Mean [Right Arm] Blood Pressure Source [Right Arm] Blood Pressure Position [Right Arm] 02 Sat by Pulse Oximetry 95 95 Oxygen Delivery Method Room Air - Lab Data Lab results reviewed: Yes: I reviewed the patient's lab results. Lab Results 08/09/21 02:45: POC Glucose 72 08/09/21 03:00: WBC 16.1 H, RBC 5.97, Hgb 17.7, Hct 54.3 H, MCV 91.1, MCH 29.7, MCHC 32.6, RDW 15.0, Plt Count 119 L, MPV 11.3 H, Neut % (Auto) 84.5 H, Lymph % (Auto) 8.8 L, [place] % (Auto) 4.9, Eos % (Auto) 0.5, Baso % (Auto) 1.2, Neut # (Auto) 13.6 H, Lymph # (Auto) 1.4, [place] # (Auto) 0.8, Eos # (Auto) 0.1, Baso # (Auto) 0.2, Total Counted 100, Neutrophils % (Manual) 76, Band Neutrophils % 14.0 H, Lymphocytes % (Manual) 9 L, Monocytes % (Manual) 1 L, Platelet Estimate Slight decrease, RBC Morphology Normal 08/09/21 03:00: ESR 6 08/09/21 03:00: Sodium 138, Potassium 3.8, Chloride 99, Carbon Dioxide 33 H, Anion Gap 9.8, BUN 31 H, Creatinine 1.60 H, Estimated Creat Clear 69, Estimated GFR 43 L, Est GFR ( Amer) 52 L, Glucose 125 H, Calcium 9.1, Total Bilirubin 0.2, AST 30, ALT 26, Alkaline Phosphatase 149 H, C-Reactive Protein 4.4 H, Total Protein 7.8 D, Albumin 4.1, Globulin 3.7 H, Albumin/Globulin Ratio 1.1 08/09/21 03:00: Lactate 1.2 08/09/21
[2021-08-09 03:36] LABS: Procalcitonin 0.057 ng/mL (0.0-2.0)
[2021-08-09 03:45] LABS: Erythrocyte Sedimentation Rate 6 mm/hr (0-20)
[2021-08-09 03:47] LABS: Lymphocytes % 9 % (10-50); Monocytes % 1 % (2-9); Neutrophils % 76 % (42-76); Platelet Estimate Slight Decrease; RBC Morphology Normal; Total Cells Counted 100
[2021-08-09 04:20] LABS: Troponin I < 0.01 ng/ml (0.00-0.034)
[2021-08-09 04:37] LABS: POC Glucose,Bedside 193 (70-110)
--- NOTE | 2021-08-09 07:22 | PC.NURSE ---
diabetic diet tray ordered for pt
[2021-08-09 07:25] LABS: Microscopic, Urine URINE MICROSCOPIC (MICROSCOPIC)
[2021-08-09 07:26] LABS: Appearance,Urine CLEAR (Clear); Bilirubin,Urine Negative (Negative); Blood, Urine Negative (Negative); Color,Urine YELLOW (Yellow); Glucose,Urine (UA) Negative (Negative); Ketones,Urine Negative (Negative); Leukocyte Esterase,Urine Negative (Negative); Nitrate,Urine Negative (Negative); Protein,Urine 2+ (Negative); Urobilinogen,Urine 0.2 EU/dl (0.2)
--- NOTE | 2021-08-09 07:27 | PC.NURSE ---
lab notified of new labs ordered
[2021-08-09 07:40] LABS: Hyaline Casts,Urine Occasional #/lpf (0); Squamous Epithelial Cell,Urine Occasional #/hpf (0-5); WBC,Urine Occasional #/hpf (0-3)
--- NOTE | 2021-08-09 07:40 | PC.NURSE ---
pt sitting up in bed eating breakfast tray
[2021-08-09 07:56] LABS: T4 (Thyroxine) 8.9 ug/dl (5.53-11.0)
[2021-08-09 08:00] LABS: Troponin I < 0.01 ng/ml (0.00-0.034)
--- NOTE | 2021-08-09 08:01 | ECG_ITS ---
APPROVED REPORT Exam: Resting ECG HR:86 bpm ECG Measurements Heart Rate 86 AXES QRSd 119 QRS -25 QT 385 T 79 QTc 429 Conclusion ATRIAL FIBRILLATION MODERATE VOLTAGE CRITERIA FOR LVH, CONSIDER NORMAL VARIANT [MEETS CRITERIA IN ONE OF: R(aVL), S(V1), R(V5), R(V5/V6)+S(V1)] INFERIOR MYOCARDIAL INFARCTION , PROBABLY OLD [40+ ms Q WAVE AND/OR ST/T ABNORMALITY IN II/aVF] ANTEROLATERAL MYOCARDIAL INFARCTION , OF INDETERMINATE AGE [40+ ms Q WAVE IN I/aVL/V3-V6] ABNORMAL ECG UNCONFIRMED REPORT Electronically signed by : Jonathon Perales MD 08/10/2021 18:42:45
[2021-08-09 08:02] LABS: POC Glucose,Bedside 184 (70-110)
--- NOTE | 2021-08-09 08:18 | PC.NURSE ---
Marly notified for pt transport back to [facility].
--- NOTE | 2021-08-09 08:19 | PC.NURSE ---
report called to amando robin
== END 2021-08-09 09:00 | disposition home or self-care (01) ==
PROVIDERS: Emergency Provider Emergency Medicine; PCP Emergency Medicine
DX: E11.649 Type 2 diabetes mellitus with hypoglycemia without coma; T68.XXXA Hypothermia, initial encounter; Z79.4 Long term (current) use of insulin; E03.9 Hypothyroidism, unspecified; Z91.041 Radiographic dye allergy status; Z79.01 Long term (current) use of anticoagulants; Z79.899 Other long term (current) drug therapy; I65.29 Occlusion and stenosis of unspecified carotid artery; J44.9 Chronic obstructive pulmonary disease, unspecified; I25.2 Old myocardial infarction; E78.5 Hyperlipidemia, unspecified; I10 Essential (primary) hypertension; I73.9 Peripheral vascular disease, unspecified; F32.A Depression, unspecified
CPT/HCPCS: 71045; 80053; 81001; 82962; 83605; 84145; 84436; 84443; 84484; 85007; 85025; 85651; 86140; 87040; 87077; 87186; 93005; 96365; 99284

== ENCOUNTER 2022-05-29 08:56 | Inpatient (IN) | payer MEDICARE, MEDICAID, SELFPAY ==
[2022-05-29] VITALS (45 sets, daily range): BP systolic 0–168; BP diastolic 0–120; PULSE 50–109; RESP 18–27; TEMP -17.7–36.6; O2SAT 86–100; BMI 35.2
--- NOTE | 2022-05-29 08:57 | XR_ITS ---
PROCEDURE INFORMATION: Exam: XR Chest Exam date and time: 05/29/2022 9:23 AM Age: 72 years old Clinical indication: Shortness of breath and wheezing; Additional info: Concern for pneumonia TECHNIQUE: Imaging protocol: Radiologic exam of the chest. Views: 1 view. COMPARISON: CR XR CHEST PORTABLE 08/09/2021 3:01 AM FINDINGS: Lungs: Low lung volumes with mild bibasilar airspace opacities. Pleural spaces: Unremarkable. No pleural effusion. No pneumothorax. Heart/Mediastinum: Unremarkable. No cardiomegaly. Bones/joints: Unremarkable. IMPRESSION: Low lung volumes with mild bibasilar airspace opacities, which may reflect atelectasis versus pneumonia.
--- NOTE | 2022-05-29 08:58 | HMH.EDGENADL ---
Discharge Plan Disposition Patient Disposition: Admitted As Inpatient Condition: Critical Clinical Impressions Clinical Impression: Cardiac arrest due to respiratory disorder, ST elevation (STEMI) myocardial infarction, Respiratory failure Discharge ED Provider: Shilo Simons General Adult HPI General Chief complaint: Shortness of Breath/Dyspnea Stated complaint: SOA Time Seen by Provider: 05/29/22 08:58 History of Present Illness HPI narrative: Patient is a 72-year-old male past medical history of atrial fibrillation, COPD, CAD, CVA, diabetes, hyperlipidemia, hypertension who presents with concern for shortness of breath. Nursing facility reports that they checked on him this morning and he was in the 60% on his oxygen saturation. He was placed on 2 L and came up into the upper 80s. EMS was called they gave him 2 DuoNeb's in route which helped to bring him up to the 90 percentile on 2 L nasal cannula. He does not wear oxygen at baseline. He does report that he does feel short of breath when he lies flat. Feels like his legs are swelling more than normal. He says that he feels wheezy. Has been having worsening cough compared to baseline. He says that he did used to smoke. Denies any fever or chills. Related Data Home Medications Medication Instructions Recorded Confirmed albuterol sulfate 90 mcg/actuation 2 puffs inhalation Q6 PRN COPD 01/06/20 03/23/22 aerosol inhaler apixaban 5 mg tablet 5 mg PO BID Blood thinner 04/10/20 03/23/22 duloxetine 30 mg capsule,delayed 20 mg PO DAILY . 04/10/20 03/23/22 release insulin glargine 100 unit/mL (3 15 units SQ PM Diabetes 04/10/20 03/23/22 mL) subcutaneous pen levothyroxine 100 mcg tablet 125 mcg PO DAILY thyroid 04/10/20 03/23/22 amlodipine 5 mg tablet 5 mg PO DAILY Hypertension 04/11/20 03/23/22 fluticasone furoate 100 1 puff inhalation DAILY allergies 08/09/21 03/23/22 mcg-vilanterol 25 mcg/dose inhalation powder insulin glargine 100 unit/mL (3 See Rx Instructions .Route 08/09/21 03/23/22 mL) subcutaneous pen .COMPLEX Diabetes semaglutide 0.25 mg or 0.5 mg (2 0.5 mg SQ WEEKLY diabetic 08/09/21 03/23/22 mg/1.5 mL) subcutaneous pen injector insulin human U-100 NPH-regulr 50 unit SQ 09/29/21 03/23/22 70-30 mix 100 unit/mL subcutaneous susp (Humulin 70/30 U-100 Insulin) Previous Rx's Medication Instructions Recorded hydrocodone 5 mg-acetaminophen 325 1 tab PO Q6HP PRN Moderate To 08/17/20 mg tablet Severe Pain #120 tabs gabapentin 300 mg capsule 300 mg PO BID . #60 caps 03/07/22 diphenoxylate-atropine 2.5 1 tab PO Q6H PRN diarrhea 4 days 05/27/22 mg-0.025 mg tablet (Lomotil) #16 tabs Allergies Allergy/AdvReac Type Severity Reaction Status Date / Time Iodinated Contrast Media Allergy Mild SICK Verified 03/23/22 11:27 [IODINATED CONTRAST MEDIA - IV DYE] [facility] Disclaimer: The information contained in this section may have been updated after the patient was seen, as this information can be updated by other users. Medical History (Updated 05/29/22 @ 12:54 by Shilo Simons MD) Abnormal stress test Callus of foot COPD (chronic obstructive pulmonary disease) Dyspnea Fatigue Hypothyroidism Overweight (BMI 25.0-29.9) Social History Smoking Status: Current every day smoker tobacco type: cigarettes packs per day: 1 alcohol intake: former substance use type: former substance user, crack/cocaine and other current occupational status: disabled Travel in the last 8 weeks: None household members: family housing: house caffeine: Yes ROS Obtained: Yes All systems reviewed & no additional complaints except as documented Physical Exam General General appearance: alert and in no apparent distress Comment: Ill-appearing Head Head exam: atraumatic, normocephalic and normal inspection Eye Eye exam: Present normal appearance and PERRL E
--- NOTE | 2022-05-29 09:11 | PC.NURSE ---
RT aware of neb order
--- NOTE | 2022-05-29 09:12 | ECG_ITS ---
APPROVED REPORT Exam: Resting ECG HR:91 bpm ECG Measurements Heart Rate 91 AXES QRSd 85 QRS -12 QT 374 T 89 QTc 423 Conclusion ATRIAL FIBRILLATION ANTERIOR MYOCARDIAL INFARCTION , PROBABLY OLD [40+ ms Q WAVE AND/OR ST/T ABNORMALITY IN V3/V4] INFERIOR MYOCARDIAL INFARCTION , PROBABLY OLD [40+ ms Q WAVE AND/OR ST/T ABNORMALITY IN II/aVF] ABNORMAL ECG INTERPRETATION BASED ON A DEFAULT AGE OF 38 YEARS UNCONFIRMED REPORT Electronically signed by : Jonathon Perales MD 05/31/2022 03:09:46
[2022-05-29 09:14] LABS: Basophils # 0.1 K/mm3 (0-0.2); Basophils % 0.9 % (0.1-2.0); Eosinophils # 0.2 K/mm3 (0.0-0.4); Eosinophils % 1.4 % (0.1-12.0); Hematocrit 50.7 % (42.0-52.0); Lymphocytes # 2.6 K/mm3 (0.7-4.5); Lymphocytes % 23.6 % (10-50); Mean Corpuscular HGB Conc 31.6 g/dL (31.8-35.4); Mean Corpuscular Hemoglobin 27.9 pg (27.0-31.2); Mean Corpuscular Volume 88.5 fl (80-94); Mean Platelet Volume 10.2 fl (7.4-10.4); Monocytes # 0.6 K/mm3 (0.1-1.0); Monocytes % 5.5 % (1.7-9.3); Neutrophils # 7.6 K/mm3 (1.8-7.8); Neutrophils % 68.6 % (37.0-80.0); Platelet Count 158 K/mm3 (142-424); Red Blood Count 5.73 M/mm3 (4.60-6.20); Red Cell Distribution Width 14.7 % (11.5-17.5); White Blood Count 11.1 K/mm3 (4.8-10.8)
--- NOTE | 2022-05-29 09:14 | PC.NURSE ---
Lidocaine patch noted on the left shoulder
[2022-05-29 09:15] LABS: VBG Base Excess 1.7 mmol/L (-2.4-2.3); VBG HCO3 27.8 mmol/L (23-30); VBG Oxygen Saturation 76.9 % (50-70); VBG PCO2 55.1 mmol/L (35-51); VBG PH 7.32 mmol/L (7.31-7.41); VBG PO2 40.5 mmol/L (28-40); VBG Total CO2 29.5 mmol/L (23-27)
[2022-05-29 09:23] LABS: Alanine Aminotransferase 20 U/L (12-78); Albumin Level 4.2 g/dl (3.5-5.0); Albumin/Globulin Ratio 1.2 (1.1-1.8); Alkaline Phosphatase 91 U/L (38-126); Anion Gap 9.5 mEq/L (5-15); Aspartate Amino Transferase 41 U/L (17-59); Bilirubin,Total 1.2 mg/dl (0.2-1.3); Blood Urea Nitrogen 27 mg/dl (9-20); Calcium 8.3 mg/dl (8.4-10.2); Carbon Dioxide 30 mmol/L (22.0-30.0); Chloride 98 mmol/L (98-107); Creatinine Clearance Estimated 64 mL/min (50-200); Estimated Glomerular Filt Rate 40 ml/min (>60); GFR (African American) 48 ML/MIN (>60); Globulin 3.4 g/dL (1.3-3.2); Glucose 90 mg/dl (74-100); Potassium 4.5 mmoL/L (3.5-5.1); Sodium 133 mmol/L (136-145); Total Protein,Serum 7.6 g/dl (6.3-8.2)
[2022-05-29 09:27] LABS: C-Reactive Protein 31.7 mg/L (0-4)
[2022-05-29 09:29] LABS: Coronavirus 19, PCR Not Detected (NotDetected); Influenza A, PCR Not Detected (NotDetected); Influenza B, PCR Not Detected (NotDetected)
[2022-05-29 09:33] LABS: NT Pro Brain Natriuretic Pep. 1980 pg/mL (0-125)
[2022-05-29 09:41] LABS: Procalcitonin 0.081 ng/mL (0.0-2.0)
--- NOTE | 2022-05-29 10:05 | PC.NURSE ---
O2 decreased to 3L NC at this time, SaO2 was 98% on 4L
--- NOTE | 2022-05-29 10:13 | PC.NURSE ---
VESNA PEPE speaking with Dr. franklin (hospitalist)
--- NOTE | 2022-05-29 10:17 | PC.NURSE ---
notified warehouse hand of admission
--- NOTE | 2022-05-29 10:30 | PC.NURSE ---
Went into patients room d/t patient calling out inspector insulation light. Upon arriving to patients room patient had had a change in status. pt was diaphoretic, only responding to name and unable to milk pickup driver oxygen saturation. pt changed over to nonrebreather and MD notified. pt became asystole on the monitor and ACLS protocol initiated. MD at bedside intubating.
--- NOTE | 2022-05-29 10:30 | IR_ITS ---
APPROVED REPORT Patient Location: Emergent Booth Cashier: SALINA Steiner RT (R) PROCEDURES Selective coronary angiogram Drug-eluting stent deployment to the ostial LAD Drug-eluting stent deployment to the distal dominant circumflex artery Placement of intra-aortic balloon pump Critical care management 2 hours following STEMI procedure INDICATION Cardiogenic shock, Acute ST elevation myocardial infarction, Acute respiratory failure, Informed consent was obtained prior to the procedure. Estimated Blood Loss: Less than 10 mls TECHNIQUE Patient arrived to the emergency department and experience cardiac arrest shortly upon presentation. Patient was intubated in the emergency department and EKG demonstrated inferolateral ST elevation myocardial infarction. Patient was in full cardiac arrest when brought to the Computer Networking Instructor Adjunct. I met the patient in the emergency department while he was being wheeled up he was intubated while the emergency room physician was providing chest compressions. Immediately upon arrival in the [facility] a second defibrillator was attached to the patient. Patient was then recalcitrant or refractory ventricular fibrillation despite amiodarone and multiple shocks. 400 J of synchronized electricity was applied by 2 separate defibrillators and simultaneous deployment restored supraventricular rhythm from ventricular fibrillation. Patient would maintain a regular rhythm with a palpable blood pressure however would decompensate and required multiple shocks using 400 J with 2 separate defibrillator pads. Epinephrine sodium bicarb and amiodarone were continually administered. Patient was sterilely prepped and the right femoral artery was accessed via the Salinger technique and a 6 Bahamian sheath was placed in the right femoral artery. A JR4 catheter was used to perform right coronary artery angiography. 15,000 units of heparin was administered on a weight-based dosing. An EBU 3.75 guide catheter was then placed into the left main artery where an ostial LAD stenosis was identified. A Choice PT extra-support wire was placed distally and a 4 mm x 12 mm resolute [place] stent was deployed at 24 genevieve reducing the severe ostial LAD stenosis to 0%. An additional Choice PT extra-support wire was placed into the distal circumflex artery where a 2.5 x 18 mm resolute [place] stent was deployed at 24 genevieve reducing this critical stenosis to 0%. JOSE-3 flow was present down both vessels before and after the procedure. Patient did not experience any additional ventricular fibrillation after the 2 vessels were open. Blood gases were continually monitored and the Ambu bag was converted over to a ventilator. Bedside echo demonstrated global hypokinesis therefore it was decided to proceed with an intra-aortic balloon pump. The 6 Bahamian sheath was exchanged for an 8-1/2 Bahamian sheath and the intra-aortic balloon pump was placed distal to the left subclavian and proximal to the renal arteries. Additional critical care was undertaken with monitoring of blood gases as well as repositioning the ET tube but was slightly down the right mainstem bronchus. Patient became awake and required sedation. Epinephrine drip was started for slight hypotension and patient was transferred to the intensive care unit intubated with an intra-aortic balloon pump. Integrilin was started along with heparin drip. ANGIOGRAPHIC RESULTS The left main artery Has an ostial 20 to 30% stenosis The left anterior descending artery Has an ostial 80% stenosis with a mid vessel 50% stenosis The circumflex artery Is dominant and has proximal 10 to 20% stenosis with a 99% stenosis in the distal portion yet still proximal to 3 obtuse marginal arteries
--- NOTE | 2022-05-29 10:42 | ECG_ITS ---
APPROVED REPORT Exam: Resting ECG HR:75 bpm ECG Measurements Heart Rate 75 AXES QRSd 107 QRS 51 QT 313 T 197 QTc 341 Conclusion ATRIAL FIBRILLATION MARKED ST ELEVATION, CONSIDER ANTERIOR INJURY [MARKED ST ELEVATION W/O NORMALLY INFLECTED T-WAVE IN V2-V5] MARKED ST ELEVATION, CONSIDER INFERIOR INJURY [MARKED ST ELEVATION W/O NORMALLY INFLECTED T-WAVE IN II/aVF] ACUTE PA UNCONFIRMED REPORT Electronically signed by : Jonathon Perales MD 05/31/2022 03:08:48
--- NOTE | 2022-05-29 10:45 | PC.NURSE ---
Called by phone the one listed contact, for a 'Luz Maria Dee' with no answer, twice, attempting to reach NOK. Also called facility of origin, [facility] staff member, and unable to provide any emergency photoresist contact printer or information, told pt does not have a guardian and confirmed decisions made by self
--- NOTE | 2022-05-29 10:48 | PC.NURSE ---
STEMI alert called over head. ekg sent to dr. franklin via stemi phone at [phone] per housekeeping staff who was at states dr. franklin is in the mechanical shop laborer. She tried to make contact with mechanical shop laborer staff via phone-no success. housekeeping staff notified sound truck operator to call stemi alert overhead (per my request) to help alert mechanical shop laborer staff who were in house. After stemi alert called overhead I sent housekeeping staff to mechanical shop laborer to notify dr. franklin and staff of pts condition and pt is post code-continuing to go in refractory vfib. Dr. Franklin responded to stemi phone once out of current case at [phone] stating to bring pt to mechanical shop laborer at that time. VESNA PEPE at and aware dr. franklin was in a case when we initially tried to make contact with him.
--- NOTE | 2022-05-29 11:00 | PC.NURSE ---
Patient transported to manager cardiac cath by multiple ED staff and physician, met web services developer en route, with zoll in place
[2022-05-29 11:01] LABS: ABG HCO3 31.4 mmhg (22.0-26.0); ABG Oxygen Saturation 98 % (90-100); ABG PH 7.24 mmol/L (7.35-7.45); ABG PO2 112.7 mmhg (80-100); ABG TCO2 33.7 mmhg (23-27)
[2022-05-29 11:02] LABS: Allen's Test Patient Unable; Oxygen 100% %; Source Left Femoral
[2022-05-29 11:03] LABS: ABG PCO2 75.3 mmhg (35.0-45.0)
--- NOTE | 2022-05-29 11:51 | PC.NURSE ---
Code Narrative 10:27a Witnessed cardiac arrest in ED room 04. 10:28a CPR initiated, Assisted Ventilation w/BVM. 10:30 Pulse Check, pulseless. PEA. LMA placed. Epi 1mg given. CPR resumed. 10:32 Pulse Check, pulseless. 10:33 Epi 1mg given. 10:34 Pulse Check, +pulse, bradycardia HR 34, 1 amp bicarb given. 10:35 HR 101, R24 BVM-LMA in place, BP 107/59. 10:37 Etomidate 30 given. 10:38 Succ 150 given. 10:39 ETT placed, 8.0. 10:40 HR 105, BVM assisted, O2 90%. 10:41 Pulseless, Vtach, Shock 200j, CPR resumed. 10:42 Epi 1mg given. 10:44 Pulse check, Torsades, CPR resumed. 10:46 House calling field laboratory operator. 10:47 Mg 2gm given. 10:48 Pulse check, V-fib, Epi 1mg given, CPR resumed. 10:49 Bicarb given. 10:50 Pulse check, v-fib, Shock 200j, cpr resumed. 10:51 Calcium Chloride 1gm, Epi 1mg given, and Amiodarone 300mg 10:52 Triple lumen central line placed to left fem. Pulse check, Vfib, Shock 200j, cpr resumed. 10:53 Lido given. 10:54 Pulse check, vfib, shock 200j, epi 1mg given, 1amp bicarb, cpr resumed. 10:56 Calcium Chloride 1gm given. 10:57 Pulce check, v-fib, shock 200j, amiodarone 150mg, epi 1 mg given, cpr resumed. 10:59 Course v-fib, shock 200j. 11:00 Left ED to field laboratory operator. Assisted ventilations via BVM, cpr in progress. (2) RNs and (1) .
--- NOTE | 2022-05-29 12:14 | PC.NURSE ---
[facility] facility called back to share another contact number found for patient:
[2022-05-29 12:48] LABS: Activated Partial Thrombo Time 29.6 seconds (22.8-30.6)
--- NOTE | 2022-05-29 12:57 | XR_ITS ---
PROCEDURE INFORMATION: Exam: XR Chest Exam date and time: 05/29/2022 1:02 PM Age: 72 years old Clinical indication: Device placement; Ett placement (vent status); Additional info: Verify et tube placement and og tube placement films marked TECHNIQUE: Imaging protocol: Radiologic exam of the chest. Views: 1 view. COMPARISON: CR XR CHEST PORTABLE 05/29/2022 9:23 AM FINDINGS: Tubes, catheters and devices: The tip of the ET tube is not well demonstrated and somewhat obscured by overlying extraneous tubing at other monitoring device is but appears to terminate 3 cm above the gabriela in satisfactory position. There is an orogastric tube coursing into the body of the stomach in satisfactory position. Lungs: See Heart/Mediastinum finding. Pleural spaces: Unremarkable. No pleural effusion. No pneumothorax. Heart/Mediastinum: Heart is enlarged, unchanged. Lung volumes are significantly decreased, unchanged. No obvious infiltrates. Bones/joints: Unremarkable for age. IMPRESSION: 1. Interval placement of ET tube whose tip is not optimally demonstrated but appears in adequate position 3 cm above the gabriela. 2. Orogastric tube in satisfactory position.
--- NOTE | 2022-05-29 13:48 | SUR.OPER ---
1221 new orders to start heparin drip at 1800u/hr per DR. Katey SAUCEDA
[2022-05-29 13:58] LABS: ABG Base Excess -6.5 mmol/L (-2.4-2.3); ABG HCO3 19.6 mmhg (22.0-26.0); ABG Oxygen Saturation 100 % (90-100); ABG PCO2 38.9 mmhg (35.0-45.0); ABG PH 7.32 mmol/L (7.35-7.45); ABG PO2 151.8 mmhg (80-100); ABG TCO2 20.8 mmhg (23-27)
[2022-05-29 14:01] LABS: Allen's Test Patient Unable; Oxygen 100% %; PEEP 8; Source Right Radial; Tidal Volume 440; Vent Rate 26
[2022-05-29 15:23] LABS: Basophils # 0.2 K/mm3 (0-0.2); Basophils % 0.6 % (0.1-2.0); Eosinophils # 0.1 K/mm3 (0.0-0.4); Eosinophils % 0.4 % (0.1-12.0); Hematocrit 56.7 % (42.0-52.0); Hemoglobin 17.5 g/dL (14.1-18.0); Lymphocytes # 2.2 K/mm3 (0.7-4.5); Lymphocytes % 6.4 % (10-50); Mean Corpuscular HGB Conc 30.8 g/dL (31.8-35.4); Mean Corpuscular Hemoglobin 28.3 pg (27.0-31.2); Mean Corpuscular Volume 91.8 fl (80-94); Mean Platelet Volume 12.6 fl (7.4-10.4); Monocytes # 1.1 K/mm3 (0.1-1.0); Monocytes % 3.3 % (1.7-9.3); Neutrophils # 29.8 K/mm3 (1.8-7.8); Neutrophils % 89.2 % (37.0-80.0); Platelet Count 205 K/mm3 (142-424); Red Blood Count 6.18 M/mm3 (4.60-6.20); Red Cell Distribution Width 14.8 % (11.5-17.5); White Blood Count 33.4 K/mm3 (4.8-10.8)
[2022-05-29 15:45] LABS: MANUAL DIFFERENTIAL MANUAL DIFFERENTIAL (MANUAL DIFF)
--- NOTE | 2022-05-29 15:47 | PC.NURSE ---
attempted to call both numbers for contact on chart, no answer at this time
--- NOTE | 2022-05-29 15:54 | HMH.PHAHEP ---
[facility] Pharmacy Heparin Dosing Demographic Data Admission date:: 05/29/22 Date: 05/29/22 Time: 15:54 Allergies Allergy/AdvReac Type Severity Reaction Status Date / Time Iodinated Contrast Media Allergy Mild SICK Verified 03/23/22 11:27 [IODINATED CONTRAST MEDIA - IV DYE] Height: 1.83 m Weight: 117 kg Indication Medication therapy:: Heparin Current Active Problems (Updated 05/30/22 @ 14:54 by Kell Rick APRN) Shock (Acute) On mechanically assisted ventilation (Acute) Cardiogenic shock (Acute) Septic shock (Acute) Cardiac arrest due to respiratory disorder (Acute) ST elevation (STEMI) myocardial infarction (Acute) Respiratory failure (Acute) HCAP (healthcare-associated pneumonia) (Acute) CVA?: No Bleeding problem?: No Kidney disease?: No MA?: Yes Desired PTT range:: 50-75 seconds Labs Anticoagulation Lab Results:: 05/29/22 05/29/22 09:02 14:21 Hgb 16.0 17.5 Hct 50.7 56.7 H Plt Count 158 205 D Monitoring Dose Monitor 1: Date: 05/29/22 Time: 12:46 PTT Result:: 29.6 Infusion Rate:: 18 ML/HR Comment:: BOLUSED IN POND SUPERVISOR Dose Monitor 2: Date: 05/29/22 Time: 17:00 PTT Result:: 176.3 Infusion Rate:: 29 ml/hr overnight pharmacy order change Dose Monitor 3: Date: 05/29/22 Time: 21:25 PTT Result:: 200.0 Infusion Rate:: 22 ml/hr overnight pharmacy order change Dose Monitor 4: Date: 05/30/22 Time: 00:20 PTT Result:: 200.0 Infusion Rate:: 22 ml/hr overnight pharmacy order change Dose Monitor 5: Date: 05/30/22 Time: 03:10 PTT Result:: >200.0 Infusion Rate:: 15 ml/hr overnight pharmacy order change Dose Monitor 6: Date: 05/30/22 Time: 06:00 PTT Result:: >200.0 Infusion Rate:: 7 ml/hr overnight pharmacy order change Dose Monitor 7: Date: 05/30/22 Time: 09:40 PTT Result:: >200.0 Infusion Rate:: hold at 1040 Dose Monitor 8: Date: 05/30/22 Time: 12:15 PTT Result:: 159 Infusion Rate:: hold ordered follow up at 1400 Comment:: PULLED BALLOON PUMP AND HEPARIN IS STOPPED Core Measures Is INR > or = 2 at discharge?: No Most Recent Labs:: Laboratory Results - last 24 hr 05/29/22 09:02: WBC 11.1 H, RBC 5.73, Hgb 16.0, Hct 50.7, MCV 88.5, MCH 27.9, MCHC 31.6 L, RDW 14.7, Plt Count 158, MPV 10.2, Neut % (Auto) 68.6, Lymph % (Auto) 23.6, [place] % (Auto) 5.5, Eos % (Auto) 1.4, Baso % (Auto) 0.9, Neut # (Auto) 7.6, Lymph # (Auto) 2.6, [place] # (Auto) 0.6, Eos # (Auto) 0.2, Baso # (Auto) 0.1 05/29/22 09:02: Sodium 133 L, Potassium 4.5, Chloride 98, Carbon Dioxide 30, Anion Gap 9.5, BUN 27 H, Creatinine 1.70 H, Estimated Creat Clear 64, Estimated GFR 40 L, Est GFR ( Amer) 48 L, Glucose 90, Calcium 8.3 L, Total Bilirubin 1.2, AST 41, ALT 20, Alkaline Phosphatase 91, C-Reactive Protein 31.7 H, NT-Pro-B Natriuret Pep 1980 H, Total Protein 7.6, Albumin 4.2, Globulin 3.4 H, Albumin/Globulin Ratio 1.2, Procalcitonin 0.081 05/29/22 09:02: APTT 29.6 05/29/22 09:10: VBG pH 7.32, VBG pCO2 55.1 H, VBG pO2 40.5 H, VBG HCO3 27.8, VBG Total CO2 29.5 H, VBG O2 Saturation 76.9 H, VBG Base Excess 1.7 05/29/22 09:26: SARS-CoV-2 (PCR) Not detected, Influenza A Untype (PCR) Not detected, Influenza Type B (PCR) Not detected 05/29/22 10:57: Specimen Source Left femoral, O2 % 100%, ABG pH 7.24 L*, ABG pCO2 75.3 H, ABG pO2 112.7 H, ABG HCO3 31.4 H, ABG Total CO2 33.7 H, ABG O2 Saturation 98, ABG Base Excess 4.0 H, Jordi Test Patient unable 05/29/22 13:54: Specimen Source Right radial, O2 % 100%, ABG pH 7.32 L, ABG pCO2 38.9, ABG pO2 151.8 H, ABG HCO3 19.6 L, ABG Total CO2 20.8 L, ABG O2 Saturation 100, ABG Base Excess -6.5 L, Jordi Test Patient unable, Vent Rate 26, Tidal Volume 440, PEEP 8 05/29/22 14:21: WBC 33.4 H* D, RBC 6.18, Hgb 17.5, Hct 56.7 H, MCV 91.8, MCH 28.3, MCHC 30.8 L, R
--- NOTE | 2022-05-29 16:06 | EXP.HP ---
History of Present Illness *Admission Date: 05/29/22 *Reason for visit:: Shortness of breath *History of present illness: Patient presented to the emergency department for shortness of breath. Chest x-ray showed pneumonia and possibly congestive heart failure. Patient shortly had V-fib cardiac arrest. Intubated. Taken to the Gas Treater. Resuscitated. Cardiogenic shock in the Gas Treater during revascularization. Multiple rounds of chest compressions and defibrillation. Intra-aortic balloon pump placed. Transferred to the floor in the ICU, remain intubated sedated on mechanical circulation and pressors. Unable to obtain further history. [facility] Disclaimer: The information contained in this section may have been updated after the patient was seen, as this information can be updated by other users. Medical History (Updated 05/29/22 @ 16:53 by Katey Hill MD) Abnormal stress test Callus of foot COPD (chronic obstructive pulmonary disease) Dyspnea Fatigue Hypothyroidism Overweight (BMI 25.0-29.9) Social History (Updated 05/29/22 @ 15:38 by Magali Murray RN) Smoking Status: Current every day smoker tobacco type: cigarettes packs per day: 1 alcohol intake: former substance use type: former substance user, crack/cocaine and other current occupational status: disabled Travel in the last 8 weeks: None household members: family housing: house caffeine: Yes Review of Systems Review of Systems Review of systems:: unable to obtain Meds Home Medications and Allergies Home Medications Medication Instructions Recorded Confirmed Type albuterol sulfate 90 mcg/actuation 2 puffs inhalation Q6 PRN COPD 01/06/20 03/23/22 History aerosol inhaler apixaban 5 mg tablet 5 mg PO BID Blood thinner 04/10/20 03/23/22 History duloxetine 30 mg capsule,delayed 20 mg PO DAILY . 04/10/20 03/23/22 History release insulin glargine 100 unit/mL (3 15 units SQ PM Diabetes 04/10/20 03/23/22 History mL) subcutaneous pen levothyroxine 100 mcg tablet 125 mcg PO DAILY thyroid 04/10/20 03/23/22 History amlodipine 5 mg tablet 5 mg PO DAILY Hypertension 04/11/20 03/23/22 History hydrocodone 5 mg-acetaminophen 325 1 tab PO Q6HP PRN Moderate To 08/17/20 03/23/22 Rx mg tablet Severe Pain #120 tabs fluticasone furoate 100 1 puff inhalation DAILY allergies 08/09/21 03/23/22 History mcg-vilanterol 25 mcg/dose inhalation powder insulin glargine 100 unit/mL (3 See Rx Instructions .Route 08/09/21 03/23/22 History mL) subcutaneous pen .COMPLEX Diabetes semaglutide 0.25 mg or 0.5 mg (2 0.5 mg SQ WEEKLY diabetic 08/09/21 03/23/22 History mg/1.5 mL) subcutaneous pen injector insulin human U-100 NPH-regulr 50 unit SQ 09/29/21 03/23/22 History 70-30 mix 100 unit/mL subcutaneous susp (Humulin 70/30 U-100 Insulin) gabapentin 300 mg capsule 300 mg PO BID . #60 caps 03/07/22 03/23/22 Rx diphenoxylate-atropine 2.5 1 tab PO Q6H PRN diarrhea 4 days 05/27/22 Rx mg-0.025 mg tablet (Lomotil) #16 tabs New Prescriptions to Start Prescriptions: Allergies Allergy/AdvReac Type Severity Reaction Status Date / Time Iodinated Contrast Media Allergy Mild SICK Verified 03/23/22 11:27 [IODINATED CONTRAST MEDIA - IV DYE] Exam Data for Last 24 hours Vital signs and Labs for Last 24 Hours: Temp Pulse Resp BP Pulse Ox FiO2 0 F L 54 L 26 H 0/0 L 99 80 05/29/22 11:00 05/29/22 14:30 05/29/22 14:30 05/29/22 11:00 05/29/22 14:30 05/29/22 14:30 Laboratory Results - last 24 hr 05/29/22 09:02: WBC 11.1 H, RBC 5.73, Hgb 16.0, Hct 50.7, MCV 88.5, MCH 27.9, MCHC 31.6 L, RDW 14.7, Plt Count 158, MPV 10.2, Neut % (Auto) 68.6, Lymph % (Auto) 23.6, [place] % (Auto) 5.5, Eos % (Auto) 1.4, Baso % (Auto) 0.9, Neut # (Auto) 7.6, Lymph # (Auto) 2.6, [place] # (Auto) 0.6, Eos # (Auto) 0.2, Baso # (Auto) 0.1 05/29/22 09:02: Sodium 133 L, Potassium 4.5, Chloride 98, Carbon Dioxide 30, Anion Gap 9.5, BUN 27 H,
--- NOTE | 2022-05-29 16:09 | EXP.PHA.CONS ---
Pharmacy Consult Date: 05/29/22 Time: 16:10 Referring provider: DR. SAUCEDA Reason for Consult:: VANCOMYCIN DOSING Allergies Allergy/AdvReac Type Severity Reaction Status Date / Time Iodinated Contrast Media Allergy Mild SICK Verified 03/23/22 11:27 [IODINATED CONTRAST MEDIA - IV DYE] Home Medications Medication Instructions Recorded Confirmed Type albuterol sulfate 90 mcg/actuation 2 puffs inhalation Q6 PRN COPD 01/06/20 03/23/22 History aerosol inhaler apixaban 5 mg tablet 5 mg PO BID Blood thinner 04/10/20 03/23/22 History duloxetine 30 mg capsule,delayed 20 mg PO DAILY . 04/10/20 03/23/22 History release insulin glargine 100 unit/mL (3 15 units SQ PM Diabetes 04/10/20 03/23/22 History mL) subcutaneous pen levothyroxine 100 mcg tablet 125 mcg PO DAILY thyroid 04/10/20 03/23/22 History amlodipine 5 mg tablet 5 mg PO DAILY Hypertension 04/11/20 03/23/22 History hydrocodone 5 mg-acetaminophen 325 1 tab PO Q6HP PRN Moderate To 08/17/20 03/23/22 Rx mg tablet Severe Pain #120 tabs fluticasone furoate 100 1 puff inhalation DAILY allergies 08/09/21 03/23/22 History mcg-vilanterol 25 mcg/dose inhalation powder insulin glargine 100 unit/mL (3 See Rx Instructions .Route 08/09/21 03/23/22 History mL) subcutaneous pen .COMPLEX Diabetes semaglutide 0.25 mg or 0.5 mg (2 0.5 mg SQ WEEKLY diabetic 08/09/21 03/23/22 History mg/1.5 mL) subcutaneous pen injector insulin human U-100 NPH-regulr 50 unit SQ 09/29/21 03/23/22 History 70-30 mix 100 unit/mL subcutaneous susp (Humulin 70/30 U-100 Insulin) gabapentin 300 mg capsule 300 mg PO BID . #60 caps 03/07/22 03/23/22 Rx diphenoxylate-atropine 2.5 1 tab PO Q6H PRN diarrhea 4 days 05/27/22 Rx mg-0.025 mg tablet (Lomotil) #16 tabs New Prescriptions to Start Prescriptions: Height: 1.83 m Weight: 117 kg Laboratory Results:: Laboratory Results - last hr 05/29/22 09:02: WBC 11.1 H, RBC 5.73, Hgb 16.0, Hct 50.7, MCV 88.5, MCH 27.9, MCHC 31.6 L, RDW 14.7, Plt Count 158, MPV 10.2, Neut % (Auto) 68.6, Lymph % (Auto) 23.6, [place] % (Auto) 5.5, Eos % (Auto) 1.4, Baso % (Auto) 0.9, Neut # (Auto) 7.6, Lymph # (Auto) 2.6, [place] # (Auto) 0.6, Eos # (Auto) 0.2, Baso # (Auto) 0.1 05/29/22 09:02: Sodium 133 L, Potassium 4.5, Chloride 98, Carbon Dioxide 30, Anion Gap 9.5, BUN 27 H, Creatinine 1.70 H, Estimated Creat Clear 64, Estimated GFR 40 L, Est GFR ( Amer) 48 L, Glucose 90, Calcium 8.3 L, Total Bilirubin 1.2, AST 41, ALT 20, Alkaline Phosphatase 91, C-Reactive Protein 31.7 H, NT-Pro-B Natriuret Pep 1980 H, Total Protein 7.6, Albumin 4.2, Globulin 3.4 H, Albumin/Globulin Ratio 1.2, Procalcitonin 0.081 05/29/22 09:02: APTT 29.6 05/29/22 09:10: VBG pH 7.32, VBG pCO2 55.1 H, VBG pO2 40.5 H, VBG HCO3 27.8, VBG Total CO2 29.5 H, VBG O2 Saturation 76.9 H, VBG Base Excess 1.7 05/29/22 09:26: SARS-CoV-2 (PCR) Not detected, Influenza A Untype (PCR) Not detected, Influenza Type B (PCR) Not detected 05/29/22 10:57: Specimen Source Left femoral, O2 % 100%, ABG pH 7.24 L*, ABG pCO2 75.3 H, ABG pO2 112.7 H, ABG HCO3 31.4 H, ABG Total CO2 33.7 H, ABG O2 Saturation 98, ABG Base Excess 4.0 H, Jordi Test Patient unable 05/29/22 13:54: Specimen Source Right radial, O2 % 100%, ABG pH 7.32 L, ABG pCO2 38.9, ABG pO2 151.8 H, ABG HCO3 19.6 L, ABG Total CO2 20.8 L, ABG O2 Saturation 100, ABG Base Excess -6.5 L, Jordi Test Patient unable, Vent Rate 26, Tidal Volume 440, PEEP 8 05/29/22 14:21: WBC 33.4 H* D, RBC 6.18, Hgb 17.5, Hct 56.7 H, MCV 91.8, MCH 28.3, MCHC 30.8 L, RDW 14.8, Plt Count 205 D, MPV 12.6 H, Neut % (Auto) 89.2 H, Lymph % (Auto) 6.4 L, [place] % (Auto) 3.3, Eos % (Auto) 0.4, Baso % (Auto) 0.6, Neut # (Auto) 29.8 H, Lymph # (Auto) 2.2, [place] # (Auto) 1.1 H, Eos # (Auto) 0.1, Baso # (Auto) 0.2 Medical History: Medical History (Updated 05/29/22 @ 12:54 by Shilo Simons MD) Abnormal stress test Callus of foot COPD (chronic obstructive pulmonary disease) Dysp
[2022-05-29 16:22] LABS: Lymphocytes % 5 % (10-50); Monocytes % 5 % (2-9); Neutrophils % 87 % (42-76); Total Cells Counted 100
[2022-05-29 16:23] LABS: Platelet Estimate Normal; RBC Morphology Normal
--- NOTE | 2022-05-29 18:00 | PC.NURSE ---
integrilin gtt turned off at this time per Dr. Hill
--- NOTE | 2022-05-29 18:16 | PC.NURSE ---
called to check status of PTT from 170
[2022-05-29 18:25] LABS: PTT Heparin (inpatient only) 176.3 Seconds (23.6-34.0)
--- NOTE | 2022-05-29 18:36 | PC.NURSE ---
spoke pharmacy about PTT, stated to decrease heparin gtt to 1450 units/hr, redraw PTT at 1930
--- NOTE | 2022-05-29 19:19 | PC.NURSE ---
attempted to call contacts on chart and contact received from [facility]
[2022-05-29 19:56] LABS: ABG Base Excess -10.5 mmol/L (-2.4-2.3); ABG HCO3 16.7 mmhg (22.0-26.0); ABG Oxygen Saturation 94 % (90-100); ABG PCO2 38.6 mmhg (35.0-45.0); ABG PH 7.25 mmol/L (7.35-7.45); ABG PO2 76.5 mmhg (80-100); ABG TCO2 17.9 mmhg (23-27)
--- NOTE | 2022-05-29 20:00 | PC.NURSE ---
upon taking report at bedside MD Zahida Hill and MD Taylor Hill at bedside removing left femoral central line and placing fem stop to stop bleeding, inserted new right femoral central line, and inserted new right radial arterial line; MD's aware of pt's low bp and frequent alarms on balloon pump, no new orders at this time
[2022-05-29 20:18] LABS: Oxygen 100 %; PEEP 8; Vent Rate 22
--- NOTE | 2022-05-29 20:23 | PC.NURSE ---
Addendum entered by Ramsey Loomis RN 05/30/22 20:55: Correction. Femstop initial inflation to 100mmHg (10mmHg greather than current systolic pressure of 90) Original Note: Femstop placed by Jackeline and Gerry at approximately 2044 to left femoral site. Balloon inflated to 100mm/Hg (10mmHg greater than current systolic pressure of 80). 2130- decreased to 90mmHg 2150- decreased to 78mmHg 2200- decreased to 68mmHg 2210- decreased to 45mmHg 2225- femstop removed, no bleeding noted. Gauze and tegaderm applied to site.
--- NOTE | 2022-05-29 21:00 | PC.NURSE ---
sedation stopped at this time
--- NOTE | 2022-05-29 21:05 | PC.NURSE ---
MD Daniel Hill emergently verbally ordered to start levophed drip for continued hypotension after new lines placed and 1L LR bolus completed
--- NOTE | 2022-05-29 22:28 | PC.NURSE ---
all air removed out of fem stop on left femoral site, no bleeding noted at left femoral site but hematoma and ecchymosis noted, gauze and tegaderm dressing placed
--- NOTE | 2022-05-29 22:30 | PC.NURSE ---
pt has not made any UOP this shift, team aware, no new orders at this time
--- NOTE | 2022-05-29 22:47 | PC.NURSE ---
spoke with Nicolette at [facility] and instructed to decrease heparin drip to 1100units/hr=22mL/hr and redraw another aPTT at 0000
--- NOTE | 2022-05-29 22:59 | PC.NURSE ---
pt rousing, asked pt to open eyes and pt did open eyes to command, asked pt if could hear this RN and pt shook head yes; restarted fentanyl at 25mcg/hr and propofol at 15mcg/kg/min
[2022-05-30] VITALS (84 sets, daily range): BP systolic 44–105; BP diastolic 27–79; PULSE 65–130; RESP 26–31; TEMP 34–37.3; O2SAT 95–100; BMI 40.6
--- NOTE | 2022-05-30 00:31 | PC.NURSE ---
COURTESY ROUND PATIENT LAYING IN BED WITH NURSING STAFF AROUND BEDSIDE. TRASH AND LINENS EMPTIED .
--- NOTE | 2022-05-30 02:12 | PC.NURSE ---
spoke with Nicolette at [facility] instructed to keep heparin drip at 1100units/hr and redraw another aptt at 0300
--- NOTE | 2022-05-30 02:13 | PC.NURSE ---
savannah wallis ordered 1L LR bolus and to start dobutamine, both started and abg drawn
--- NOTE | 2022-05-30 03:15 | PC.NURSE ---
savannah wallis ordered second LR bolus, bolus started
--- NOTE | 2022-05-30 03:25 | PC.NURSE ---
Addendum entered by Fatemeh Kirk RN 05/30/22 04:49: and rhythm afib Original Note: pt's HR increased into 120-130's, stopped dobutamine drip per verbal instruction from savannah wallis
[2022-05-30 03:51] LABS: PTT Heparin (inpatient only) > 200.0 Seconds (23.6-34.0)
--- NOTE | 2022-05-30 04:21 | PC.NURSE ---
spoke with Nicolette at [facility], instructed to decrease heparin drip to 750units/hr=15mL/hr and redraw another aptt at 0600
--- NOTE | 2022-05-30 04:22 | PC.NURSE ---
savannah wallis ordered a third 1L LR bolus, starting bolus now
--- NOTE | 2022-05-30 06:00 | CA_ITS ---
APPROVED REPORT EXAM: Comprehensive 2D, Doppler, and color-flow Echocardiogram Dumping Machine Operator: Carmen Rowley RDCS Ht: 216 ft 0 in Wt: 300lbs BSA: 34.01 BP: 74/54 mmHg Indications: Congestive Heart Failure, COPD, Shortness of Breath, Obesity,post code, pt intubated 2D Dimensions LVOT 1.92 cm (M/F) 1.5-2.5 M-Mode Dimensions RVDd 1.96 cm (0.9-2.6) LA Diam 3.71 cm (1.9-4.0) LVDd 3.27 cm (3.5-5.7) Ao Diam 3.75 cm (2.0-3.7) LVDs 2.25 cm (3.5-5.7) IVSd 1.40 cm (0.6-1.1) PWd 1.23 cm (0.6-1.1) EF (Teich) 60.40% FS 31.20% EDV (Teich) 43.20 mL ESV (Teich) 17.10 mL Left Ventricle Technically difficult and limited echocardiogram performed due to patient factors and poor acoustic windows. Left atrium is mildly enlarged, left ventricle is normal size mild concentric left ventricular hypertrophy, estimated ejection fraction 55% with no regional wall motion abnormality in the obtained views. Diastolic parameters are inconclusive. Right Ventricle Right atrium and right ventricle are mildly enlarged with normal contractility. Aortic Valve Aortic valve is thickened and calcified without aortic stenosis. There is no aortic insufficiency. Mitral Valve Mitral valve is grossly normal. There is trace mitral regurgitation. Tricuspid Valve Tricuspid valve grossly normal, there is trace tricuspid regurgitation, tricuspid regurgitation jet velocity is inadequate for calculation of the right ventricular systolic pressure. Pulmonic Valve Pulmonic valve is poorly visualized. Great Vessels Aortic root is normal size. Inferior vena cava is poorly visualized. Pericardium No significant pericardial effusion noted. Conclusion 1. Technically difficult and limited study as described above. 2. Normal left ventricular size preserved left ventricular systolic function, estimated ejection fraction 55% from the obtained views, diastolic parameters are inconclusive. 3. Mildly enlarged right ventricle with normal contractility. 4. No significant pericardial effusion noted. 5. Inferior vena cava is poorly visualized. Electronically signed by : Manolo Begum MD 06/01/2022 06:18:03
--- NOTE | 2022-05-30 06:00 | XR_ITS ---
PROCEDURE INFORMATION: Exam: XR Chest Exam date and time: 05/30/2022 3:31 AM Age: 72 years old Clinical indication: Device placement; Ett placement (vent status); Additional info: Intubated TECHNIQUE: Imaging protocol: Radiologic exam of the chest. Views: 1 view. COMPARISON: CR XR CHEST PORTABLE 05/29/2022 1:02 PM FINDINGS: Tubes, catheters and devices: ET tube distal tip is difficult to discern but likely is at the level of the clavicular heads. Nasogastric tube distal tip is in the left upper quadrant. Lungs: Unremarkable. No consolidation. Pleural spaces: Unremarkable. No pleural effusion. No pneumothorax. Heart/Mediastinum: Unremarkable. No cardiomegaly. Bones/joints: Unremarkable. IMPRESSION: ET tube distal tip likely at clavicular heads. NG tube in good position.
[2022-05-30 06:17] LABS: Albumin Level 1.7 g/dl (3.5-5.0); Alkaline Phosphatase 56 U/L (38-126); Anion Gap 31.4 mEq/L (5-15); Blood Urea Nitrogen 33 mg/dl (9-20); Chloride 99 mmol/L (98-107); Chol/HDL Ratio 3.3 (1-3.5); Cholesterol 59 mg/dl (140-200); Creatinine Clearance Estimated 48 mL/min (50-200); Estimated Glomerular Filt Rate 24 ml/min (>60); GFR (African American) 29 ML/MIN (>60); Globulin 1.7 g/dL (1.3-3.2); Glucose 272 mg/dl (74-100); HDL Cholesterol 18 mg/dl (40-60); Phosphorous 11.1 mg/dl (2.5-4.5); Potassium 4.4 mmoL/L (3.5-5.1); Sodium 135 mmol/L (136-145); Total Protein,Serum 3.4 g/dl (6.3-8.2); Triglycerides 150 mg/dl (30-150); VLDL Cholesterol 30 mg/dL (0-40)
[2022-05-30 06:21] LABS: Basophils # 0.3 K/mm3 (0-0.2); Basophils % 0.6 % (0.1-2.0); Eosinophils # 0.1 K/mm3 (0.0-0.4); Eosinophils % 0.1 % (0.1-12.0); Hematocrit 36.9 % (42.0-52.0); Lymphocytes # 3.8 K/mm3 (0.7-4.5); Mean Corpuscular HGB Conc 29.5 g/dL (31.8-35.4); Mean Corpuscular Hemoglobin 28.1 pg (27.0-31.2); Mean Corpuscular Volume 95.3 fl (80-94); Monocytes % 4.1 % (1.7-9.3); Neutrophils # 41.5 K/mm3 (1.8-7.8); Neutrophils % 87.2 % (37.0-80.0); Platelet Count 163 K/mm3 (142-424); Red Blood Count 3.88 M/mm3 (4.60-6.20); Red Cell Distribution Width 15.1 % (11.5-17.5)
[2022-05-30 06:23] LABS: ABG Base Excess -21.1 mmol/L (-2.4-2.3); ABG HCO3 8.9 mmhg (22.0-26.0); ABG Oxygen Saturation 96 % (90-100); ABG PCO2 30.8 mmhg (35.0-45.0); ABG PO2 102.4 mmhg (80-100); ABG TCO2 9.9 mmhg (23-27); Alanine Aminotransferase 395 U/L (12-78)
[2022-05-30 06:24] LABS: Allen's Test Patient Unable; Oxygen 80 %; PEEP 8; Source A LINE; Tidal Volume 440; Vent Rate 26
[2022-05-30 06:26] LABS: ABG PH 7.08 mmol/L (7.35-7.45); White Blood Count 47.5 K/mm3 (4.8-10.8)
[2022-05-30 06:27] LABS: Aspartate Amino Transferase 854 U/L (17-59)
[2022-05-30 06:28] LABS: Carbon Dioxide 9 mmol/L (22.0-30.0); Direct LDL Cholesterol 34.32 mg/dL (100-129); MANUAL DIFFERENTIAL MANUAL DIFFERENTIAL (MANUAL DIFF)
--- NOTE | 2022-05-30 06:37 | PC.NURSE ---
notified savannah wallis of pt's critical CO2 of 9 and WBC of 47.5, no new orders at this time
[2022-05-30 06:49] LABS: PTT Heparin (inpatient only) > 200.0 Seconds (23.6-34.0)
--- NOTE | 2022-05-30 06:54 | PC.NURSE ---
pt very restless, opening eyes and shaing head from side to side, moving right upper extremity and overbreathing the vent; increased propofol to 40mcg/kg/min and fentanyl to 50mcg/hr current drip rates: propofol at 40mcg/kg/min fentanyl at 50mcg/hr vasopressin at 0.04units/min levophed at 30mcg/min heparin at 350units/hr epinephrine 60mcg/rsl=958qM/hr per MD Hill sodium bicarb at 100mL/hr vent settings are: FIO2 80% peep 8 RR 26 TV 440 spoke with Joseluis at [facility] and instructed to decreased heparin drip to 350units/hr and redraw another aptt at 0800
[2022-05-30 07:06] LABS: Lymphocytes % 18 % (10-50); Monocytes % 5 % (2-9); Neutrophils % 71 % (42-76); Total Cells Counted 100
[2022-05-30 07:07] LABS: Anisocytosis 1+; Macrocytosis 1+
[2022-05-30 07:08] LABS: Platelet Estimate Normal; RBC Morphology Normal
--- NOTE | 2022-05-30 07:20 | PC.NURSE ---
at start of shift drips were infusing as follows Heparin @ 350units/hour Epi @ 60mcg/min Levo @ 30mcg/min Vaso @ 0.04 units/min Fentanyl @ 50mcg/hr Propofol @ 40mcg/kg/min Bicarb @ 100ml/hr
[2022-05-30 07:34] LABS: ABG PH 6.99 mmol/L (7.35-7.45); ABG PO2 95.6 mmhg (80-100)
[2022-05-30 07:35] LABS: ABG Base Excess -22.6 mmol/L (-2.4-2.3); ABG HCO3 7.9 mmhg (22.0-26.0); ABG Oxygen Saturation 95 % (90-100); ABG TCO2 8.9 mmhg (23-27); Allen's Test Patient Unable; Oxygen 80% %; PEEP 8; Tidal Volume 440; Vent Rate 26
[2022-05-30 07:35] LABS: CATHL Activated Clotting Time > 400 SEC (74-125)
--- NOTE | 2022-05-30 08:33 | SW/DCPLANNER ---
This patient currently resides at [facility] level of care. I have faxed updated information to Kristina pepper/ [facility]: discharge date is unknown at this time.
--- NOTE | 2022-05-30 08:41 | XR_ITS ---
FINAL REPORT TECHNIQUE: Single view chest CLINICAL HISTORY: verify balloon pump plcement, ett,ng COMPARISON: Exam performed earlier today FINDINGS: A single view of the chest was obtained. The heart size is stable. ET tube and NG tube are unchanged. The marker for IABP is seen in the proximal descending thoracic aorta. There are stable bibasilar opacities. There is no pneumothorax. Osseous structures are unremarkable. IMPRESSION: Balloon pump marker seen in the proximal descending thoracic aorta. Otherwise, no significant interval change. Reviewed, Interpreted and Dictated by Alisha Timmons MD Transcribed by Margarita Brunson Authenticated and [facility]
--- NOTE | 2022-05-30 09:12 | P.CONPHA_ITS ---
Pharmacy Intervention Comments: Reconciled patient's home medication list using [facility] MAR and pharmacy fill history.
--- NOTE | 2022-05-30 09:12 | HMH.PHAINT1 ---
Pharmacy Intervention Comments: Reconciled patient's home medication list using [facility] and pharmacy fill history.
--- NOTE | 2022-05-30 09:29 | EXP.PHA.CONS ---
Pharmacy Consult Date: 05/30/22 Time: 09:31 Referring provider: DR Sandra SAUCEDA Reason for Consult:: VANCOMYCIN DOSING CONSULT Allergies Allergy/AdvReac Type Severity Reaction Status Date / Time Iodinated Contrast Media Allergy Mild SICK Verified 03/23/22 11:27 [IODINATED CONTRAST MEDIA - IV DYE] Home Medications Medication Instructions Recorded Confirmed Type apixaban 5 mg tablet 5 mg PO BID Blood thinner 04/10/20 05/30/22 History insulin glargine 100 unit/mL (3 12 units SQ PM Diabetes 04/10/20 05/30/22 History mL) subcutaneous pen amlodipine 5 mg tablet 5 mg PO DAILY Hypertension 04/11/20 05/30/22 History fluticasone furoate 100 1 puff inhalation DAILY 08/09/21 05/30/22 History mcg-vilanterol 25 mcg/dose allergies/wheezing inhalation powder insulin human U-100 NPH-regulr 35 unit SQ DAILY Diabetes 09/29/21 05/30/22 History 70-30 mix 100 unit/mL subcutaneous susp (Humulin 70/30 U-100 Insulin) diphenoxylate-atropine 2.5 1 tab PO Q6H PRN diarrhea 4 days 05/27/22 05/30/22 Rx mg-0.025 mg tablet (Lomotil) #16 tabs acetaminophen 650 mg 650 mg PO Q8H PRN Pain/fever 05/30/22 05/30/22 History tablet,extended release dulaglutide 3 mg/0.5 mL 3 mg SQ .MARGE Diabetes 05/30/22 05/30/22 History subcutaneous pen injector (Trulicity) furosemide 20 mg tablet 20 mg PO Q48H Fluid overload 05/30/22 05/30/22 History gabapentin 300 mg capsule 300 mg PO BID Pain 05/30/22 05/30/22 History levothyroxine 150 mcg tablet 150 mcg PO DAILY Thyroid 05/30/22 05/30/22 History lidocaine 5 % topical patch 1 patch topical DAILY Pain 05/30/22 05/30/22 History nystatin 100,000 unit/gram topical 1 applic topical DAILY Excoriation 05/30/22 05/30/22 History ointment New Prescriptions to Start Prescriptions: Height: 1.83 m Weight: 136.1 kg Laboratory Results:: Laboratory Results - last 24 hr 05/29/22 09:02: C-Reactive Protein 31.7 H, NT-Pro-B Natriuret Pep 1980 H, Procalcitonin 0.081 05/29/22 09:02: APTT 29.6 05/29/22 09:26: SARS-CoV-2 (PCR) Not detected, Influenza A Untype (PCR) Not detected, Influenza Type B (PCR) Not detected 05/29/22 10:57: Specimen Source Left femoral, O2 % 100%, ABG pH 7.24 L*, ABG pCO2 75.3 H, ABG pO2 112.7 H, ABG HCO3 31.4 H, ABG Total CO2 33.7 H, ABG O2 Saturation 98, ABG Base Excess 4.0 H, Jordi Test Patient unable 05/29/22 11:16: Activated Clotting Time > 400 H* 05/29/22 13:54: Specimen Source Right radial, O2 % 100%, ABG pH 7.32 L, ABG pCO2 38.9, ABG pO2 151.8 H, ABG HCO3 19.6 L, ABG Total CO2 20.8 L, ABG O2 Saturation 100, ABG Base Excess -6.5 L, Jordi Test Patient unable, Vent Rate 26, Tidal Volume 440, PEEP 8 05/29/22 14:21: WBC 33.4 H* D, RBC 6.18, Hgb 17.5, Hct 56.7 H, MCV 91.8, MCH 28.3, MCHC 30.8 L, RDW 14.8, Plt Count 205 D, MPV 12.6 H, Neut % (Auto) 89.2 H, Lymph % (Auto) 6.4 L, [place] % (Auto) 3.3, Eos % (Auto) 0.4, Baso % (Auto) 0.6, Neut # (Auto) 29.8 H, Lymph # (Auto) 2.2, [place] # (Auto) 1.1 H, Eos # (Auto) 0.1, Baso # (Auto) 0.2, Total Counted 100, Neutrophils % (Manual) 87 H, Lymphocytes % (Manual) 5 L, Atypical Lymphs % 3.0, Monocytes % (Manual) 5, Platelet Estimate Normal, RBC Morphology Normal 05/29/22 16:45: APTT 176.3 H* 05/29/22 19:55: O2 % 100, ABG pH 7.25 L, ABG pCO2 38.6, ABG pO2 76.5 L, ABG HCO3 16.7 L, ABG Total CO2 17.9 L, ABG O2 Saturation 94, ABG Base Excess -10.5 L, Vent Rate 22, PEEP 8 05/29/22 21:25: APTT 200.0 H* 05/30/22 00:20: APTT 200.0 H* 05/30/22 01:52: Specimen Source A-line, O2 % 80%, ABG pH 6.99 L*, ABG pCO2 33.0 L, ABG pO2 95.6, ABG HCO3 7.9 L, ABG Total CO2 8.9 L, ABG O2 Saturation 95, ABG Base Excess -22.6 L, Jordi Test Patient unable, Vent Rate 26, Tidal Volume 440, PEEP 8 05/30/22 03:10: APTT > 200.0 H* 05/30/22 06:00: WBC 47.5 H* D, RBC 3.88 L D, Hgb 11.0 L D, Hct 36.9 L, MCV 95.3 H, MCH 28.1, MCHC 29.5 L, RDW 15.1, Plt Count 163, MPV 12.0 H, Neut % (Auto) 87.2 H, Lymph % (Auto) 8.0 L, [place] % (Auto) 4.1, Eos % (Auto) 0.1, Baso % (Auto) 0.6, Neut # (Auto) 41.5 H, L
--- NOTE | 2022-05-30 09:36 | EXP.PULM.CON ---
History of Present Illness History of present illness: Patient intubated and sedated but much of the history is obtained from chart review. Mr. Hawk is a 72-year-old female presented to the ER with worsening respiratory distress eventually had a cardiac arrest status post shock, ROSC strip V-fib, Tapering Machine Operator CAD stenting and intra-aortic balloon placement intubated and pulmonary was called for further evaluation. [facility] Disclaimer: The information contained in this section may have been updated after the patient was seen, as this information can be updated by other users. Medical History (Updated 05/30/22 @ 12:10 by Bia Monsalve MD) Abnormal stress test Callus of foot COPD (chronic obstructive pulmonary disease) Dyspnea Fatigue Hypothyroidism On mechanically assisted ventilation Overweight (BMI 25.0-29.9) Shock Social History (Updated 05/29/22 @ 15:38 by Magali Murary RN) Smoking Status: Current every day smoker tobacco type: cigarettes packs per day: 1 alcohol intake: former substance use type: former substance user, crack/cocaine and other current occupational status: disabled Travel in the last 8 weeks: None household members: family housing: house caffeine: Yes Review of Systems Review of Systems Review of systems:: unable to obtain Review of systems (narrative): Intubated and sedated Pulmonology Exam Inpatient Vital signs and Labs for Last 24 Hours: Temp Pulse Resp BP Pulse Ox FiO2 94.6 F L 122 H 31 H 74/39 L 100 80 05/30/22 08:00 05/30/22 07:00 05/30/22 07:00 05/30/22 07:00 05/30/22 07:00 05/30/22 07:00 Laboratory Results - last 24 hr 05/29/22 09:02: NT-Pro-B Natriuret Pep 1980 H, Procalcitonin 0.081 05/29/22 09:02: APTT 29.6 05/29/22 09:26: SARS-CoV-2 (PCR) Not detected, Influenza A Untype (PCR) Not detected, Influenza Type B (PCR) Not detected 05/29/22 10:57: Specimen Source Left femoral, O2 % 100%, ABG pH 7.24 L*, ABG pCO2 75.3 H, ABG pO2 112.7 H, ABG HCO3 31.4 H, ABG Total CO2 33.7 H, ABG O2 Saturation 98, ABG Base Excess 4.0 H, Jordi Test Patient unable 05/29/22 11:16: Activated Clotting Time > 400 H* 05/29/22 13:54: Specimen Source Right radial, O2 % 100%, ABG pH 7.32 L, ABG pCO2 38.9, ABG pO2 151.8 H, ABG HCO3 19.6 L, ABG Total CO2 20.8 L, ABG O2 Saturation 100, ABG Base Excess -6.5 L, Jordi Test Patient unable, Vent Rate 26, Tidal Volume 440, PEEP 8 05/29/22 14:21: WBC 33.4 H* D, RBC 6.18, Hgb 17.5, Hct 56.7 H, MCV 91.8, MCH 28.3, MCHC 30.8 L, RDW 14.8, Plt Count 205 D, MPV 12.6 H, Neut % (Auto) 89.2 H, Lymph % (Auto) 6.4 L, [place] % (Auto) 3.3, Eos % (Auto) 0.4, Baso % (Auto) 0.6, Neut # (Auto) 29.8 H, Lymph # (Auto) 2.2, [place] # (Auto) 1.1 H, Eos # (Auto) 0.1, Baso # (Auto) 0.2, Total Counted 100, Neutrophils % (Manual) 87 H, Lymphocytes % (Manual) 5 L, Atypical Lymphs % 3.0, Monocytes % (Manual) 5, Platelet Estimate Normal, RBC Morphology Normal 05/29/22 16:45: APTT 176.3 H* 05/29/22 19:55: O2 % 100, ABG pH 7.25 L, ABG pCO2 38.6, ABG pO2 76.5 L, ABG HCO3 16.7 L, ABG Total CO2 17.9 L, ABG O2 Saturation 94, ABG Base Excess -10.5 L, Vent Rate 22, PEEP 8 05/29/22 21:25: APTT 200.0 H* 05/30/22 00:20: APTT 200.0 H* 05/30/22 01:52: Specimen Source A-line, O2 % 80%, ABG pH 6.99 L*, ABG pCO2 33.0 L, ABG pO2 95.6, ABG HCO3 7.9 L, ABG Total CO2 8.9 L, ABG O2 Saturation 95, ABG Base Excess -22.6 L, Jordi Test Patient unable, Vent Rate 26, Tidal Volume 440, PEEP 8 05/30/22 03:10: APTT > 200.0 H* 05/30/22 06:00: WBC 47.5 H* D, RBC 3.88 L D, Hgb 11.0 L D, Hct 36.9 L, MCV 95.3 H, MCH 28.1, MCHC 29.5 L, RDW 15.1, Plt Count 163, MPV 12.0 H, Neut % (Auto) 87.2 H, Lymph % (Auto) 8.0 L, [place] % (Auto) 4.1, Eos % (Auto) 0.1, Baso % (Auto) 0.6, Neut # (Auto) 41.5 H, Lymph # (Auto) 3.8, [place] # (Auto) 2.0 H, Eos # (Auto) 0.1, Baso # (Auto) 0.3 H, Total Counted 100, Neutrophils % (Manual) 71, Band Neutrophils % 6.0, Lymphocytes % (Manual) 18, Monocytes % (Manual) 5, Platelet Estimate Normal, RBC Morphology
--- NOTE | 2022-05-30 09:43 | PC.NURSE ---
late entry: telephone orders received from Dr Monsalve at 0833. Sodium bicarb 1 amp iv now, 1 liter LR bolus now.
--- NOTE | 2022-05-30 09:43 | PC.NURSE ---
0836: notified Kell that per [facility], balloon pump is not seen on chest xray. repeat xray to be performed. Kell notified dr Hill via phone at this time as well.
--- NOTE | 2022-05-30 09:44 | PC.NURSE ---
late entry: 0750 notified Kell face to face that pt has no pulses present on RLE. attempted to doppler pulse with 2 different nurses. Kell attempted to doppler pulse as well. none noted. no new orders.
--- NOTE | 2022-05-30 09:54 | PC.NURSE ---
[address] Grimm face to face about: no UOP since admission, no pulse found in RLE, and bloody drainage noted to NG tube. also notified that repeat chest xray pending r/t [facility] stating balloon pump wasn't visible on xray.
--- NOTE | 2022-05-30 10:47 | PC.NURSE ---
heparin drip stopped at this time per pharmacy order 1045
--- NOTE | 2022-05-30 11:05 | PC.NURSE ---
Vernbal order received from Dr Monsalve at bedside at 1020, increase pt Bicarb drip to 150ml/hr.
[2022-05-30 13:24] LABS: Hematocrit 34.4 % (42.0-52.0); Hemoglobin 10.1 g/dL (14.1-18.0)
[2022-05-30 13:36] LABS: PTT Heparin (inpatient only) 159.1 Seconds (23.6-34.0)
--- NOTE | 2022-05-30 14:38 | EXP.CARD.CON ---
History of Present Illness History of Present Illness Consult date: 05/30/22 Requesting physician: Katey Hill Chief complaint: stemi, cardiac arrest Additional Medical History:: [facility] 05/29/2022 History of present illness: 72 year old white male with past medical hx of PAF, COPD, CAD, CVA, DM II, Hyperlipidemia, and htn presented to ER with initial complaint of soa. Initial ER workup showed evidence of combination acute CHF and COPD exacerbation with focal opacities noted on chest xray. Patient was hypoxic on arrival and deteriorated leading to cardiac arrest. EKG after deterioration showed st elevation in multiple leads. Patient was taken to laborer plumbing and received stenting to LAD and Circ. A balloon pump was placed and patient was admitted to ICU. Patient currently intubated with balloon pump in place. Patient requiring Levo, vaso, and norepi support. Remains in critical condition. AM labs reviewed. Pulmonary following. [facility] Disclaimer: The information contained in this section may have been updated after the patient was seen, as this information can be updated by other users. Medical History (Updated 05/30/22 @ 15:43 by Kell Rick APRN) Abnormal stress test Callus of foot COPD (chronic obstructive pulmonary disease) Dyspnea Fatigue Hypothyroidism On mechanically assisted ventilation Overweight (BMI 25.0-29.9) Shock Social History (Updated 05/29/22 @ 15:38 by Magali Murray RN) Smoking Status: Current every day smoker tobacco type: cigarettes packs per day: 1 alcohol intake: former substance use type: former substance user, crack/cocaine and other current occupational status: disabled Travel in the last 8 weeks: None household members: family housing: house caffeine: Yes Review of Systems Review of Systems Review of systems:: unable to obtain *Respiratory Respiratory: Reports wheezing Comments: Intubated. Allergic/Immunologic Allergic/Immunologic: Reports wheezing Exam Data for Last 24 hours Vital signs and Labs for Last 24 Hours: Temp Pulse Resp BP Pulse Ox FiO2 96.7 F L 78 26 H 67/32 L 100 80 05/30/22 12:30 05/30/22 13:45 05/30/22 13:45 05/30/22 13:45 05/30/22 13:45 05/30/22 13:45 Laboratory Results - last 24 hr 05/29/22 11:16: Activated Clotting Time > 400 H* 05/29/22 14:21: WBC 33.4 H* D, RBC 6.18, Hgb 17.5, Hct 56.7 H, MCV 91.8, MCH 28.3, MCHC 30.8 L, RDW 14.8, Plt Count 205 D, MPV 12.6 H, Neut % (Auto) 89.2 H, Lymph % (Auto) 6.4 L, [place] % (Auto) 3.3, Eos % (Auto) 0.4, Baso % (Auto) 0.6, Neut # (Auto) 29.8 H, Lymph # (Auto) 2.2, [place] # (Auto) 1.1 H, Eos # (Auto) 0.1, Baso # (Auto) 0.2, Total Counted 100, Neutrophils % (Manual) 87 H, Lymphocytes % (Manual) 5 L, Atypical Lymphs % 3.0, Monocytes % (Manual) 5, Platelet Estimate Normal, RBC Morphology Normal 05/29/22 16:45: APTT 176.3 H* 05/29/22 19:55: O2 % 100, ABG pH 7.25 L, ABG pCO2 38.6, ABG pO2 76.5 L, ABG HCO3 16.7 L, ABG Total CO2 17.9 L, ABG O2 Saturation 94, ABG Base Excess -10.5 L, Vent Rate 22, PEEP 8 05/29/22 21:25: APTT 200.0 H* 05/30/22 00:20: APTT 200.0 H* 05/30/22 01:52: Specimen Source A-line, O2 % 80%, ABG pH 6.99 L*, ABG pCO2 33.0 L, ABG pO2 95.6, ABG HCO3 7.9 L, ABG Total CO2 8.9 L, ABG O2 Saturation 95, ABG Base Excess -22.6 L, Jordi Test Patient unable, Vent Rate 26, Tidal Volume 440, PEEP 8 05/30/22 03:10: APTT > 200.0 H* 05/30/22 06:00: WBC 47.5 H* D, RBC 3.88 L D, Hgb 11.0 L D, Hct 36.9 L, MCV 95.3 H, MCH 28.1, MCHC 29.5 L, RDW 15.1, Plt Count 163, MPV 12.0 H, Neut % (Auto) 87.2 H, Lymph % (Auto) 8.0 L, [place] % (Auto) 4.1, Eos % (Auto) 0.1, Baso % (Auto) 0.6, Neut # (Auto) 41.5 H, Lymph # (Auto) 3.8, [place] # (Auto) 2.0 H, Eos # (Auto) 0.1, Baso # (Auto) 0.3 H, Total Counted 100, Neutrophils % (Manual) 71, Band Neutrophils % 6.0, Lymphocytes % (Manual) 18, Monocytes % (Manual) 5, Platelet Estimate Normal, RBC Morphology Normal, Anisocytosis 1+, Macrocytosis 1+ 05/30/22 06:00: Sodium 135 L, [place]
--- NOTE | 2022-05-30 14:53 | PC.NURSE ---
late entry: 1400 Dr Hill at bedside with A Marlene to remove balloon pump. new orders received at this time, decrease levo drip by half (from 30mcg-15mcg) and decrease epi drip from 60mcg to 30mcg. 1415 pt arterial pressure noted to be 46/31 strong femoral pulse felt by Dr Hill, new order to increase epi drip back to 60mcg. verbal order also received to give pt 2 lr bolus at 999ml/hr at this time. 1456 A mccauley at bedside still holding pressure on balloon pump removal site.
[2022-05-30 15:56] LABS: ABG Base Excess -16.8 mmol/L (-2.4-2.3); ABG HCO3 10.5 mmhg (22.0-26.0); ABG Oxygen Saturation 97 % (90-100); ABG PCO2 24.5 mmhg (35.0-45.0); ABG PH 7.25 mmol/L (7.35-7.45); ABG PO2 106.2 mmhg (80-100); ABG TCO2 11.2 mmhg (23-27)
[2022-05-30 15:57] LABS: Oxygen 80 %; PEEP 8; Source ART LINE; Tidal Volume 440; Vent Rate 26
[2022-05-30 16:00] LABS: Calcium, Arterial 3.6 mg/dL (8.5-10.1); Chloride, Arterial 99 mmol/L (98-107); Potassium, Arterial 5.1 mmoL/L (3.5-5.1); Sodium Arterial 130 mmol/L (137-145)
--- NOTE | 2022-05-30 16:28 | PC.NURSE ---
Manual pressure held to r groin by laborer demolition staff from approx 1415 to 1615. femstop applied at 1615.
--- NOTE | 2022-05-30 16:46 | PC.NURSE ---
1605 Bilateral pedal pulses checked by Dr Monsalve and Dr Grimm at bedside using doppler. R Leg noted to be cold to touch and mottled (no change throughout shift). pulse was able to be found in left foot with doppler. unable to find pulse in right foot. 1615 when during pt to apply femstop with manager cardiac cath staff and Kell, it was noted that pt has discoloration started (appears to look like blood pooling) to the back of the right thigh. notified Kell face to face at 1615
--- NOTE | 2022-05-30 17:21 | PC.NURSE ---
decreased pt propofol to 30mcg at this time
--- NOTE | 2022-05-30 18:17 | PC.NURSE ---
1814 levophed drip increased to 20mcg r/t bp 60/32
--- NOTE | 2022-05-30 18:18 | PC.NURSE ---
1730 slight oozing noted at femstop, pressure maintained at this time. 1800 oozing no longer noted at femstop. pressure decreased from (starting pressure 18) 18 to 0.
[2022-05-30 19:34] LABS: Chloride 98 mmol/L (98-107); Potassium 5.4 mmoL/L (3.5-5.1); Sodium 128 mmol/L (136-145)
[2022-05-30 19:36] LABS: Blood Urea Nitrogen 39 mg/dl (9-20); Creatinine Clearance Estimated 46 mL/min (50-200); Estimated Glomerular Filt Rate 23 ml/min (>60); GFR (African American) 28 ML/MIN (>60)
[2022-05-30 19:37] LABS: Alanine Aminotransferase 509 U/L (12-78); Albumin Level 1.4 g/dl (3.5-5.0); Albumin/Globulin Ratio 0.9 (1.1-1.8); Alkaline Phosphatase 58 U/L (38-126); Anion Gap 23.4 mEq/L (5-15); Bilirubin,Total 0.9 mg/dl (0.2-1.3); Calcium 5.6 mg/dl (8.4-10.2); Carbon Dioxide 12 mmol/L (22.0-30.0); Globulin 1.5 g/dL (1.3-3.2); Glucose 371 mg/dl (74-100); Total Protein,Serum 2.9 g/dl (6.3-8.2)
[2022-05-30 19:41] LABS: Hematocrit 25.4 % (42.0-52.0)
[2022-05-30 19:55] LABS: Hemoglobin 8.4 g/dL (14.1-18.0)
[2022-05-30 19:58] LABS: Reflex Lactic Add Lactic Reflex
--- NOTE | 2022-05-30 20:22 | EXP.ACUTE.PN ---
Subjective *Date: 05/30/22 *Time: 14:22 Interval history: Patient's blood pressures have remained acceptable with MAP goal greater than 65 overnight. On balloon pump and 3 pressors. Labs continue to show gross abnormalities with metabolic acidosis, renal failure, marked leukocytosis. Still on ventilator and sedated this morning on rounds. Noted to have cool lower extremities, right worse than left with coolness noted all the way up to the thigh. No urine output since admission. Medical Exam Vital signs and Labs for Last 24 Hours: Vital Signs Temp Pulse Pulse Resp BP BP BP 05/30/22 18:40 77 05/30/22 18:40 77 05/30/22 18:40 05/30/22 18:40 26 H 05/30/22 18:30 80 26 H 05/30/22 17:30 84 26 H 05/30/22 18:00 05/30/22 19:00 78 26 H 05/30/22 18:00 26 H 05/30/22 17:00 83 05/30/22 17:00 84 26 H 85/44 L 05/30/22 16:00 78 05/30/22 16:30 82 26 H 92/50 L 05/30/22 16:25 81 26 H 92/44 L 05/30/22 16:20 81 26 H 84/47 L 05/30/22 16:15 77 26 H 74/45 L 05/30/22 15:53 78 26 H 88/40 L 05/30/22 16:15 81 26 H 05/30/22 16:00 78 26 H 05/30/22 15:30 79 26 H 05/30/22 13:30 81 05/30/22 13:30 78 05/30/22 15:00 78 26 H 95/79 L 05/30/22 15:15 81 26 H 05/30/22 15:00 79 26 H 05/30/22 14:45 26 H 05/30/22 14:30 78 26 H 05/30/22 14:15 76 26 H 05/30/22 14:00 77 26 H 05/30/22 13:59 05/30/22 13:45 78 26 H 05/30/22 13:30 75 26 H 05/30/22 13:15 79 26 H 05/30/22 13:00 76 26 H 05/30/22 12:45 75 26 H 03/27/23 12:30 96.7 F L 78 26 H 05/30/22 12:00 78 05/30/22 12:26 76 05/30/22 12:15 75 27 H 69/41 L 05/30/22 12:00 79 26 H 05/30/22 11:45 77 26 H 05/30/22 11:30 74 26 H 71/39 L 05/30/22 09:30 77 26 H 05/30/22 09:00 75 26 H 05/30/22 08:45 77 26 H 05/30/22 08:30 70 26 H 05/30/22 08:15 72 26 H 05/30/22 08:00 75 26 H 05/30/22 07:45 71 26 H 05/30/22 07:30 114 H 28 H 05/30/22 08:00 73 05/30/22 10:10 73 05/30/22 10:10 77 05/30/22 09:15 80 26 H 05/30/22 11:15 96.3 F L 77 26 H 05/30/22 07:15 113 H 28 H 05/30/22 11:00 73 26 H 72/41 L 05/30/22 10:45 70 26 H 05/30/22 10:30 74 26 H 05/30/22 08:00 70 05/30/22 10:00 05/30/22 10:15 80 26 H 71/49 L 05/30/22 10:01 93.2 F L 73 26 H 05/30/22 09:46 71 26 H 05/30/22 08:00 94.6 F L 05/30/22 06:00 116 H 26 H 71/40 L 69/51 L 05/30/22 05:00 120 H 05/29/22 23:00 80 05/29/22 22:00 80 05/30/22 05:15 115 H 26 H 74/39 L 76/54 L 05/30/22 04:45 110 H 26 H 67/34 L 67/48 L 05/30/22 07:00 130 H 05/30/22 07:00 122 H 31 H 74/39 L 78/46 L 05/30/22 04:00 05/30/22 06:00 120 H 05/30/22 06:30 117 H 26 H 75/44 L 70/48 L 05/30/22 05:30 114 H 26 H 80/37 L 77/36 L 05/30/22 04:00 120 H 05/30/22 03:00 130 H 05/30/22 02:00 80 05/30/22 01:00 80 05/30/22 00:00 70 05/29/22 21:00 80 05/30/22 05:00 113 H 26 H 73/38 L 71/51 L 05/30/22 04:30 111 H 26 H 59/29 L 62/44 L 05/30/22 04:13 77 05/30/22 02:12 76 05/30/22 04:10 26 H 05/30/22 04:00 115 H 26 H 66/29 L 64/48 L 05/30/22 04:15 109 H 26 H 65/27 L 64/45 L 05/30/22 03:45 113 H 26 H 70/31 L 70/50 L 05/30/22 03:29 97.4 F L 118 H 26 H 81/48 L 82/43 L 05/30/22 03:15 110 H 26 H 78/38 L 75/47 L 05/30/22 02:15 69 26 H 53/27 L 49/28 L 05/30/22 02:00 70 26 H 71/30 L 55/31 L 05/30/22 01:45 66 26 H 72/35 L 63/43 L 05/30/22 02:45 130 H 26 H 65/37 L 70/48 L 05/30/22
[2022-05-30 20:24] LABS: Aspartate Amino Transferase 1442 U/L (17-59)
[2022-05-30 21:05] LABS: Lactic Acid Follow Up (RFLX 1) 10.5 mmol/L (0.7-2.1)
[2022-05-30 22:30] LABS: Reflex Lactic (2 hrs) Add Lactic Reflex
--- NOTE | 2022-05-30 22:46 | PC.NURSE ---
Consaent for blood tranfusion signed by Deanna Arias, Hospitalist and witness by RHONA Samuel and RHONA Jiménez. Blood picked up from the lab by myself at 2240.
[2022-05-30 23:19] LABS: Lactic Acid Follow up (RFLX 2) 9.8 mmol/L (0.7-2.1)
--- NOTE | 2022-05-30 23:49 | EXP.DEATH.DS ---
Documented by User: PATRICIO Curran 05/31/22 00:02 Discharge Sum: Prov Provider Primary care physician: Maurice Ndiaye MD Visit Care Team Role Provider Type Maurice Ndiaye MD Primary Care Provider Staff Physician Abel Mackay MD Other Providers Staff Physician Bia Monsalve MD Other Providers Staff Physician Piper Kessler MD Other Providers Consulting Physician Ye Hill MD Other Providers Staff Physician PHONG Marvin Other Providers Physician Hand Fur Cleaner Maddy Farias MD Other Providers Consulting Physician Yahir Cobos MD Other Providers Consulting Physician Manolo Begum MD Other Providers Staff Physician Kell Rick, CLAIM APPROVER Other Providers Nurse Practitioner Irene Liao APRN Other Providers Nurse Practitioner Shilo Simons MD Emergency Provider ER Physician Katey Hill MD Admit Provider Physician Attending Provider Admitting clinician: Katey Hill Attending physician on admission: Katey Hill Consults: 05/29/22 13:13 Cardiac Rehab Consult [Consult to Cardiac Rehabilitation] [CONS] Routine Reason For Consult: pci 05/29/22 16:13 Cardiology Consult [Consult to Cardiology] [CONS] Routine Consulting Provider: Cardiology Reason For Consult: stemi 05/29/22 16:17 Consult to Case Management [CONS] Routine Reason For Consult: Placement 05/30/22 06:59 Consult to Pulmonology [CONS] Routine Consulting Provider: Bia Monsalve Reason For Consult: critical care and vent management Pronouncing clinician: Pao Arias Discharge Sum: Diag PCOD Cause of : Cardiac arrest Contributing Factors (1) Cardiac arrest due to respiratory disorder: (2) ST elevation (STEMI) myocardial infarction: (3) Respiratory failure: (4) HCAP (healthcare-associated pneumonia): (5) Septic shock: (6) Cardiogenic shock: (7) GI (gastrointestinal hemorrhage): (8) Groin hematoma: (9) CAD (coronary artery disease): (10) Shock liver: (11) Ischemic leg: (12) ATN (acute tubular necrosis): (13) On mechanically assisted ventilation: (14) Class 3 obesity: Discharge Sum: Summary Date and Time Date of admission: 05/29/22 11:24 Hospital Course prior to Hospital Course Information: 72-year-old male presenting to the ED with shortness of breath with subsequent V-fib cardiac arrest requiring multiple defibrillation's and chest compressions. He initially was taken to the [facility] where he received vascularization and was placed on an intra-aortic balloon pump. He showed progressively worsening organ dysfunction with development of shock liver, ATN, metabolic acidosis. Over the course of the hospitalization he required ventilation and life support with 3 pressors. With regards to mixed cardiogenic and septic shock, cardiac output was optimized with intra-aortic balloon pump and eventually discontinued with improvement in ejection fraction. He continued on anticoagulants, antiplatelets and multiple IV pressors throughout hospitalization. He was covered with broad-spectrum antibiotics throughout the course of his hospitalization. limb ischemia also likely given Lack of pulses to right lower extremity secondary recent vascularization of femoral venous and arterial system. With regard to his metabolic acidosis, he was noted to have lactic
--- NOTE | 2022-05-31 00:07 | PC.NURSE ---
2311- While I was in the room starting blood on pt, his SPO2 dropped to 68 and monitor was reading asystole. Strip showing widening QRS complex at 54 bpm. Blood transfusion was paused. Left Carotid pulse was weak but present with handheld doppler. PT unresponsive to verbal or painful stimuli at this time. Deanna Arias,Hospitalist was called to beside. FIO2 increased to 100%. 2315- 1mg Epi IV given per verbal order 2322- Epi gtt increased to 60mcg/min per verbal order 2328- Bedside US showing cardiac contractions 2330- 1mg Epi IV given per verbal order BP on art line reading 87/52 HR 45 O2 unable to read. 2337- Amiodarone 300mg IV given per verbal order BP-58/47 HR-38 2343- TOD called by Hospitalist. No cardiac movement visable on beside US and no central pulses palpated or heard with doppler. 2357- Trista at [facility] contacted and given update and asked if pt had a home preference on file. Trista report he has [facility] listed. 0005- MARIAH contacted by [facility] Jim[facility]nez 0006-Ramsey [facility] called and made aware All verbal order given from Pao Arias,Hospitalist
--- NOTE | 2022-05-31 02:14 | PC.NURSE ---
[facility] left with pt at 0121. 35cc of fentanyl that was remaining in gtt was drawn up in a syringe and discarded by myself in appropriate container with RHONA Jim[facility]nez as a witness at 0125.
--- NOTE | 2022-05-31 02:18 | PC.NURSE ---
MARIAH notified of the patient's . MARIAH contact: Afua Francis. Case number: [id number]. patient does not qualify for organ donation.
== END 2022-05-31 01:05 | disposition expired | DRG 270 ==
LOC: ER 10:53 → CATHLAB 11:07 → 2ND 11:25
PROVIDERS: Internal Medicine; Internal Medicine Adolescent Medicine; Internal Medicine Pulmonary Disease; Nurse Practitioner Acute Care; Admitting Provider Student in an Organized Health Care Education/Training Program; Emergency Provider Student in an Organized Health Care Education/Training Program; PCP Emergency Medicine; Visit Provider Student in an Organized Health Care Education/Training Program
PROC: 5A02210 Assistance with Cardiac Output using Balloon Pump, Continuous (ICD-10-PCS; principal; 2022-05-29 11:00)
DX: I21.3 ST elevation (STEMI) myocardial infarction of unspecified site (principal); J18.9 Pneumonia, unspecified organism; J96.00 Acute respiratory failure, unspecified whether with hypoxia or hypercapnia; K72.00 Acute and subacute hepatic failure without coma; N17.0 Acute kidney failure with tubular necrosis; J44.0 Chronic obstructive pulmonary disease with (acute) lower respiratory infection; Z68.42 Body mass index [BMI] 45.0-49.9, adult; E87.20 Acidosis, unspecified; R57.0 Cardiogenic shock; I46.8 Cardiac arrest due to other underlying condition; E78.5 Hyperlipidemia, unspecified; I10 Essential (primary) hypertension; Z79.4 Long term (current) use of insulin; E03.9 Hypothyroidism, unspecified; F17.210 Nicotine dependence, cigarettes, uncomplicated; E66.01 Morbid (severe) obesity due to excess calories; D50.0 Iron deficiency anemia secondary to blood loss (chronic); Z66 Do not resuscitate; Y95 Nosocomial condition; Z86.73 Personal history of transient ischemic attack (TIA), and cerebral infarction without residual deficits
CPT/HCPCS: 31500; 94004; 36556; 33967; 36415; 71045; 80051; 80053; 80061; 82803; 83605; 83880; 84100; 84145; 85007; 85014; 85018; 85025; 85347; 85730; 86140; 86850; 87040; 87070; 87077; 87186; 87205; 92928; 92941; 93005; 93306; 93458; 94002; 94003; 94640; 94761; 99152; 99153; 99291; 99292; C1725; C1751; C1760; C1769; C1876; C1894; C9600; C9606; C9803; J0282; J0330; J0456; J0692; J0696; J1250; J1327; J1644; J2185; J2704; J2720; J3475; P9016; Q9967; U0003; U0005